=== PATIENT | male | born 1965 ===

== ENCOUNTER 2020-07-09 18:50 | Emergency (ER) | payer MEDICAID, SELFPAY ==
[2020-07-09 19:18] VITALS: RESP 16; BMI 27.1
--- NOTE | 2020-07-09 19:25 | ED.AMS ---
HPI - Altered Mental Status General Chief Complaint: Overdose Stated Complaint: AMS Time Seen by Provider: 07/09/20 19:22 Source: patient and EMS Mode of arrival: EMS Limitations: no limitations History of Present Illness HPI narrative: Patient was found down by bystanders after he snorted 1 bag of heroin which he does not use very often when EMS reached patient had shallow breathing, saturating 88% at room air very difficult to arouse was given 1 mg of IV Narcan patient responded back to normal ambulatory MD complaint: decreased responsiveness Related Data Allergies Allergy/AdvReac Type Severity Reaction Status Date / Time aspirin [ASA] Allergy Unknown ITCHING Unverified 11/01/19 16:38 Review of Systems Review of Systems: Constitutional : No Weight loss, No Fever, No Chills ENT/Mouth : No sore throat, No Rhinorrhea Eyes: No Eye Pain, No Swelling Cardiovascular : No Chest Pain, no palpitations Respiratory : No Cough, No Sputum, no shortness of breath Gastrointestinal : no Nausea, No Vomiting, No Diarrhea, No abdominal Pain, no black stools Genitourinary : No Dysuria, No Urinary Frequency Musculoskeletal : No joint pain, No Myalgias, No Joint Swelling Skin : No Skin Lesions, No rash Neuro : No Weakness, No Numbness, No Dizziness, No Headache Psych : No Anxiety/Panic, No Depression Heme/Lymph: No Bruising, No Lymphadenopathy Endocrine : No Polyuria, No Polydipsia All other systems reviewed and are negative [facility] Social History Social History Advance Directives: No Advance Directives Information Provided: No Physical Exam Vital Signs: Vital Signs: Last Vital Signs Temp 98.4 F 07/09/20 19:46 Pulse 54 07/09/20 20:21 Resp 16 07/09/20 19:46 BP 103/73 07/09/20 20:21 Pulse Ox 94 07/09/20 19:46 Body Mass Index 27.1 Appearance: Alert. Oriented X3. No acute distress. Eyes: PERRLA, No Nystagmus ENT: Pharynx normal. Oral Mucosa moist Neck: Normal inspection. Neck supple. CVS: Normal heart rate and rhythm. Pulses normal. Respiratory: No respiratory distress. Equal air entry bilateral, no wheezing/rales/rhonchi Abdomen: Soft and nontender. Bowel sounds are present, no mass palpable, no CVA tenderness Skin: Skin warm and dry. Normal skin color. Normal skin turgor. Extremities: No lower extremity edema. No calf tenderness Neuro: Oriented X 3. No motor deficit. No sensory deficit.No cerebellar signs , cranial nerves II-XII intact MDM - Altered Mental Status MDM Narrative Medical decision making narrative: Patient feels much better ambulatory saturating 94% on room air had food in the ER will discharge patient home patient blood pressure on arrival was 89/54 improved after oral hydration to 103/73 patient refused any labs workup Discharge Plan Discharge Clinical Impression: Drug overdose Qualifiers: Encounter type: initial encounter Injury intent: accidental or unintentional Qualified Code(s): T50.901A - Poisoning by unspecified drugs, medicaments and biological substances, accidental (unintentional), initial encounter Patient Disposition: Home, Self-Care Instructions: Opioid Use Disorder (ED) Additional Instructions: Do not use drugs follow up with detox Interventions: ED Discharge Assessment Last Done: 07/09/20 20:23 Discharge Date/Time: 07/09/20 20:25
[2020-07-09 19:46] VITALS: BP 89/54; PULSE 66; RESP 16; TEMP 36.9; O2SAT 94
--- NOTE | 2020-07-09 19:58 | MHC.RECOVSUP ---
Met with patient refused any services
[2020-07-09 20:21] VITALS: BP 103/73; PULSE 54
== END 2020-07-09 20:25 | disposition home or self-care (01) ==
PROVIDERS: Emergency Provider Internal Medicine; PCP Internal Medicine
DX: T40.1X1A Poisoning by heroin, accidental (unintentional), initial encounter (principal); F11.19 Opioid abuse with unspecified opioid-induced disorder; Y92.9 Unspecified place or not applicable; Z71.51 Drug abuse counseling and surveillance of drug abuser
CPT/HCPCS: 99284

== ENCOUNTER 2020-07-14 19:50 | Emergency (ER) | payer MEDICAID, SELFPAY ==
[2020-07-14 19:54] VITALS: BP 103/55; PULSE 85; RESP 18; TEMP 37.2; O2SAT 89; BMI 21.7
--- NOTE | 2020-07-14 20:29 | ED.OVERDOSE ---
HPI - Overdose General Chief Complaint: Overdose Stated Complaint: od Time Seen by Provider: 07/14/20 21:59 Source: patient and EMS Mode of arrival: EMS Limitations: no limitations History of Present Illness HPI Narrative: 55-year-old male presents via EMS with overdose. Was found unresponsive, was given some Narcan and then became responsive. complaint: accidental overdose Onset (ago): hour(s) (Within the hour of arrival) Timing confirmed by: other (Bystander) Intent: unwilling to say Context: Accidental Overdose: wanted to get high Treatments Prior to Arrival: narcan Related Data Allergies Allergy/AdvReac Type Severity Reaction Status Date / Time aspirin [ASA] Allergy Unknown ITCHING Unverified 11/01/19 16:38 Review of Systems Review of Systems: Yes Unobtainable due to mental status PMFSH Past Medical History Attestation statement: The following information was validated with the patient. Source: old records reviewed Social History Social History Alcohol intake: current Alcohol intake frequency: 0-2 drinks per day Patient Tobacco Use Status: Current everyday Tobacco user Smoked in Last 30 Days: Yes Use of substances other than those prescribed or required for medical reasons: Yes Substance Use Type: Heroin, IV Drugs and Opiates Substance Use Frequency: Daily Advance Directives: No Advance Directives Information Provided: No Physical Exam Vital Signs: Vital Signs: Last Vital Signs Temp 98.9 F 07/14/20 19:54 Pulse 68 07/14/20 21:56 Resp 18 07/14/20 21:56 BP 105/67 07/14/20 21:56 Pulse Ox 92 07/14/20 21:56 Body Mass Index 21.7 Appearance: Alert. Oriented X3. No acute distress. Eyes: Pupils equal, round and reactive to light. ENT: Pharynx normal. Neck: Normal inspection. Neck supple. CVS: Normal heart rate and rhythm. Pulses normal. Respiratory: No respiratory distress. Breath sounds normal. Abdomen: Soft and nontender. Skin: Skin warm and dry. Normal skin color. Normal skin turgor. Extremities: No lower extremity edema. Neuro: No motor deficit. No sensory deficit. Course Course Course Narrative: 55-year-old male presents via EMS for suspected opioid overdose. Was given Narcan in the field after being found unresponsive. At this time, patient is not interested in answering any questions, states that he does not need to speak to me and does not need to answer any questions that I have. Will monitor O2 sats and heart rate for the next few hours. O2 sats maintained above 90%, patient is a known COPD, patient is not interested in detox at this time. He did except documentation with numbers for detox. MDM - Overdose Differential Diagnosis Differential diagnosis: Likely drug overdose Discharge Plan Discharge Clinical Impression: Drug overdose Qualifiers: Encounter type: initial encounter Injury intent: accidental or unintentional Qualified Code(s): T50.901A - Poisoning by unspecified drugs, medicaments and biological substances, accidental (unintentional), initial encounter Patient Disposition: Home, Self-Care Instructions: Adult Overdose (ED), Narcotic Use Disorder (ED) Additional Instructions: Please consider detox. You were evaluated for drug overdose. Thank you for choosing this emergency department for evaluation. Please follow-up with primary care physician as needed. Return to the emergency department for any new, concerning, or worsening symptoms.
[2020-07-14 21:56] VITALS: BP 105/67; PULSE 68; RESP 18; O2SAT 92
[2020-07-14] MEDS: Naloxone HCl Nasal TAKE HOME 4 MG SPRAY NOSTRILALT (22:03)
== END 2020-07-14 22:14 | disposition home or self-care (01) ==
PROVIDERS: Emergency Provider Emergency Medicine
DX: T40.1X1A Poisoning by heroin, accidental (unintentional), initial encounter (principal); R40.4 Transient alteration of awareness; Y92.410 Unspecified street and highway as the place of occurrence of the external cause; J44.9 Chronic obstructive pulmonary disease, unspecified; F17.210 Nicotine dependence, cigarettes, uncomplicated
CPT/HCPCS: 99284; 99285

== ENCOUNTER 2020-12-21 00:30 | Emergency (ER) | payer MEDICAID, SELFPAY ==
[2020-12-21] VITALS (19 sets, daily range): BP systolic 82–119; BP diastolic 49–91; PULSE 52–96; RESP 16–19; TEMP 32.2–37; O2SAT 2–100; BMI 25.9
--- NOTE | ~2020-12-21 | CT_ITS ---
EXAMINATION: HEAD CT WITHOUT CONTRAST CERVICAL SPINE CT WITHOUT CONTRAST CLINICAL INFORMATION: Found unresponsive, rule out stroke, bleed, fracture COMPARISON: None. TECHNIQUE: Contiguous axial imaging of the head was performed without the administration of IV contrast. Axial multidetector volumetric images were also performed through the cervical spine without intravenous contrast. Multiplanar reconstructed images in coronal and sagittal orientations were submitted. This CT examination was performed using dose optimization techniques as appropriate, variously including the following: *Automated exposure control *Adjustment of mA and/or kV according to patient size (this includes techniques or standardized protocols for targeted exams where dose is matched to indication/reason for exam; i.e. extremities or head) *Use of iterative reconstruction technique DOSE: 1073 mGy-cm FINDINGS: HEAD: There is no evidence of acute intracranial hemorrhage or territorial infarction. No abnormal mass-effect or midline shift. No extra-axial fluid collections. Moran to white matter differentiation is well preserved. The ventricles are normal in size and configuration. Calcific atherosclerosis is present within the cavernous segments of the internal carotid arteries. There is a prominence of the CSF space in the the anterior aspect of the right middle cranial fossa into the anterior aspect of the temporal lobe, most likely corresponding to an arachnoid cyst. No appreciable abnormal parenchymal attenuation. There is rightward deviation of the nasal septum. A 1 cm focus of soft tissue attenuation in the right sphenoid sinus may correspond to a nasal polyp or mucous retention cyst. There is opacification of the right aspect of the nasal cavity. CERVICAL SPINE: Vertebral body heights are normal. No fractures of the vertebral bodies or posterior elements. Vertebral alignment is normal. No subluxation. Degenerative osteophytes and sclerosis are present at the atlantodental articulation, though normal alignment is maintained. Craniocervical junction is normal. Multilevel degenerative disc disease is characterized by loss of vertebral disc height, anterior osteophytes, and uncovertebral osteophytes, most notably from C4-C5 through C6-C7. Facet joints are normal. Posterior disc osteophyte complexes produce central canal narrowing at C5-C6 and C6-C7 most notably. Uncovertebral osteophytes produce multilevel neural foraminal encroachment. No significant paravertebral soft tissue swelling. Cervical soft tissues are unremarkable. Imaged portions of the lung apices are clear. CT/CT cervical spine wo con IMPRESSION: 1. No acute intracranial pathology. 2. No acute fracture or malalignment in the cervical spine. 3. Moderate multilevel degenerative disc disease in the cervical spine.
--- NOTE | ~2020-12-21 | CT_ITS ---
EXAMINATION: CT CHEST WITH CONTRAST CT ABDOMEN AND PELVIS WITH CONTRAST CLINICAL INFORMATION: Found unresponsive, hypotensive hypothermic rule out infection. COMPARISON: 11/23/2018. TECHNIQUE: Multidetector volumetric imaging was performed from the thoracic inlet through the pubic symphysis following administration of intravenous contrast material. A total of 85 mL Omnipaque 350 was administered intravenously. Sagittal and coronal images were reformatted. This CT examination was performed using dose optimization techniques as appropriate, variously including the following: *Automated exposure control *Adjustment of mA and/or kV according to patient size (this includes techniques or standardized protocols for targeted exams where dose is matched to indication/reason for exam; i.e. extremities or head) *Use of iterative reconstruction technique DOSE: 1360 mGy-cm FINDINGS: -CHEST- LUNG: Dependent, subpleural reticular opacities in both the lower and upper lobes most likely correspond to dependent atelectasis. Assessment is slightly limited by respiratory motion. No focal airspace consolidation is identified. Central airways are clear. No appreciable bronchial opacification. No pneumothorax or pleural effusion. MEDIASTINUM: The mediastinum in normal. The central vascular structures are unremarkable. No hilar or mediastinal lymphadenopathy. PERICARDIUM/PLEURA: No significant effusion. No pleural mass or thickening. CHEST WALL/AXILLA: Unremarkable. -ABDOMEN/PELVIS- LIVER, GALLBLADDER, BILIARY TREE: The liver is normal in size, shape, and attenuation. No focal hepatic lesion or biliary ductal dilatation is present. The gallbladder is unremarkable with no evidence of radiopaque gallstones, gallbladder wall thickening, or obvious pericholecystic inflammatory changes. PANCREAS: Normal; no mass or surrounding fluid. SPLEEN: Normal size. No focal lesion. ADRENAL GLANDS: Normal; no mass. KIDNEYS AND URETERS: The kidneys are normal in size, shape, and attenuation. There is a 6 cm metallic fragment within the anterior cortex of the left kidney. There is a 4 mm calculus within the lower pole the left kidney. Attenuation value of the calculus in the lower pole of the left index measures 708 Hounsfield units. There is a 1.4 cm hypoattenuating, fluid density cyst within the lower pole the right kidney. No suspicious renal lesions. No follow-up imaging is recommended. No hydronephrosis or hydroureter. No perinephric stranding. BLADDER: Webb catheter terminates in the bladder. Mild bladder wall thickening. GASTROINTESTINAL TRACT: There is mild colonic diverticulosis. Stomach, small bowel, and colon are normal in caliber. No bowel wall thickening or surrounding fat stranding. No intraperitoneal free fluid or free air. ABDOMINAL WALL: No significant hernia is appreciated. VASCULATURE: Atherosclerotic calcifications are present in the abdominal aorta and iliac arteries. No aneurysmal dilatation. LYMPH NODES: No lymphadenopathy. . PELVIC VISCERA: Prostate gland is enlarged, measuring 5 cm transverse. OSSEUS STRUCTURES: No acute osseous abnormalities. Mild osteoarthritis in the hips. No fracture or malalignment. CT/CT abdomen pelvis w con IMPRESSION: 1. No acute abnormalities identified in the chest, abdomen, and pelvis. No acute fractures. 2. Dependent atelectasis in both lungs. 3. A 4 mm nonobstructing calculus in the left kidney. 4. Mild colonic diverticulosis. No evidence of acute diverticulitis. 5. Prostatomegaly.
--- NOTE | ~2020-12-21 | XR_ITS ---
EXAMINATION: XR CHEST CLINICAL INFORMATION: Cough COMPARISON: 04/06/2015 and 11/23/2018 (CT). TECHNIQUE: Frontal view of the chest was obtained. FINDINGS: Perihilar bronchial wall thickening is evident bilaterally. No focal consolidation. No pneumothorax or pleural effusion. Cardiac and mediastinal contours are normal. Normal pulmonary vasculature. Trachea is midline. No acute osseous findings. XR/XR chest 1V IMPRESSION: Bronchial wall thickening can be seen with a small airways process such as asthma or atypical/viral infection.
[2020-12-21 01:03] LABS: Troponin-I High Sensitivity < 3.5 ng/L (<3.5-35.0)
--- NOTE | 2020-12-21 01:09 | ED_ITS ---
HPI - Altered Mental Status General Chief Complaint: ETOH/Substance Use Stated Complaint: OD Time Seen by Provider: 12/21/20 00:57 Source: EMS Mode of arrival: EMS Limitations: altered mental status History of Present Illness HPI narrative: Patient with history of heroin abuse was [place] in the alley unresponsive not breathing had feeble pulse received 4 mg of Narcan patient awake now but is still not communicating noticed to have 90 degrees rectal temperature Related Data Allergies Allergy/AdvReac Type Severity Reaction Status Date / Time aspirin [ASA] Allergy Unknown ITCHING Verified 12/21/20 01:29 EDT Review of Systems Review of Systems: Yes Unobtainable due to mental status PMFSH Past Medical History Medical History (Updated 12/21/20 @ 01:56 EDT by Gerson Tolentino MD) Heroin abuse Social History Social History (Reviewed 12/21/20 @ 01:22 EDT by Gerson Tolentino MD) Alcohol intake: current Alcohol intake frequency: 0-2 drinks per day Patient Tobacco Use Status: Current everyday Tobacco user Substance Use Type: Heroin, IV Drugs and Opiates Advance Directives: No Advance Directives Information Provided: No Physical Exam Vital Signs: Vital Signs: Last Vital Signs Temp 90 F L 12/21/20 00:54 Pulse 90 12/21/20 00:54 Resp 18 12/21/20 00:54 BP 119/91 H 12/21/20 00:54 Pulse Ox 97 12/21/20 00:54 Body Mass Index 25.9 Const: General: alert, ill appearing and poor hygiene Nutritional Appearance: cachectic and thin Orientation/consciousness: oriented to person Limitations: altered mental status HENMT: Head: Yes normocephalic and Yes atraumatic Ears: hearing grossly normal bilaterally Mouth: Normal oral and palatal mucosa present Eyes: General: appearance normal, both eyes and all related structures Neck: Neck: Yes full ROM and Yes trachea midline Resp: Effort & Inspection: normal respiratory effort Auscultation: clear to auscultation bilaterally, no crackles and no rales Cardio: Jugular venous distension: no JVD Palpation: normal PMI Rate: regular rate Rhythm: regular rhythm Heart sounds: S1 normal heart sound present and S2 normal heart sound present Peripheral pulses: Peripheral pulses 2+ throughout GI: Inspection: Yes normal to inspection Palpation (GI): Soft to palpation and nontender Auscultation: normal bowel sounds : General: Yes no CVA tenderness Back/Spine/Pelvis: Back: no CVA tenderness Thoracic/Lumbar Spine: No thoracic spinal tenderness and No lumbar spinal tenderness Skin: General skin exam: dry skin Neuro: General: oriented to person and no focal motor deficits Course Reevaluation(s) Reevaluation #1: Patient back to the baseline says he snorted only 1 bag of her oin rectal temperature 98.2 does not want go to detox taking p.o. fluids and had sandwich Time: 01:56 MDM - Altered Mental Status MDM Narrative Medical decision making narrative: Patient history of substance abuse found unresponsive in the cold with rectal total core temperature of 90 degrees tonight improved after Raiza Hugger and warm saline to 94 .patient is more alert now withdraw the basic labs check CPK for rhabdomyolysis warm saline were also given no signs of injury further workup is pending. Dr. Lozoya will follow the labs and disposition Lab Data Result diagrams: 12/21/20 01:05 EST 12/21/20 01:05 EST Labs: Lab Results 12/21/20 12/21/20 12/21/20 Range/Units 01:03 EST 01:23 EST 01:23 EST POC Glucose 168 H (60-115) mg/dL Urine Color STRAW Urine Appearance CLEAR Urine pH 7.0 (5.0-8.0) Ur Specific [place] <= 1.005 (1.005-1.025) Urine Protein NEG (NEG-TRACE) MG/DL Urine Glucose (UA) NEG (NEG) MG/DL Urine Ketones NEG (NEG) MG/DL Urine Blood 2+ H (NEG) Urine Nitrite NEG (NEG) Ur Leukocyte Esterase NEG (NEG) COVID-19 (ZIYAD) Negative (Negative) COVID-19 Clin Com See Note ECG Data ECG #1: Attestation: I personally reviewed and interpreted this ECG as follows: Interpretation: Normal sinus rhythm heart rate 72 beats per minute normal intervals normal axis no acute ST changes no acute ischemi Discharge Plan Discharge Clinical Impression: Hypothermia associated with environmental change Accidental heroin overdose Qualifiers: Encounter type: initial encounter Qualified Code(s): T40.1X1A - Poisoning by heroin, accidental (unintentional), initial encounter
--- NOTE | 2020-12-21 01:10 | ECG_ITS ---
Test Reason : OD Blood Pressure : / mmHG Vent. Rate : 072 BPM Atrial Rate : 072 BPM P-R Int : 142 ms QRS Dur : 088 ms QT Int : 392 ms P-R-T Axes : 054 078 057 degrees QTc Int : 429 ms Poor data quality Normal sinus rhythm Intra-ventricular conduction delay Otherwise normal ECG When compared with ECG of 06-APR-2015 07:13, No significant change was found Heart rate has increased Referred By: Gerson Tolentino Electronically Signed By:HERIBERTO STEWART MD
[2020-12-21 01:25] LABS: Mucus Urine TRACE /LPF; Renal Epithelial Cells Urine 1+ /LPF; Squamous Epithelial Cell Urine TRACE /LPF; WBC Urine 0-2 /HPF (0-4)
[2020-12-21 01:26] LABS: Sperm Urine NOTED
[2020-12-21 01:26] LABS: Glucose, Whole Blood 168 mg/dL (60-115)
[2020-12-21] MEDS: 0.9 % Sodium Chloride 1,000 ML 999 ML IVCONT ×2 (01:28→01:31)
[2020-12-21 01:29] LABS: White Blood Count 18.8 X10*3/uL (4.8-10.8)
[2020-12-21 01:31] LABS: SLIDE REVIEW VERIFIED
[2020-12-21 01:40] LABS: Appearance Urine CLEAR; Color Urine STRAW; Glucose Urine UA NEG (NEG); Leukocyte Esterase Urine NEG (NEG); Nitrite Urine NEG (NEG); Specific Gravity - Urine <= 1.005 (1.005-1.025); UACC Culture Trigger NO; Urine Blood 2+ (NEG); Urine Ketones NEG (NEG); Urine Protein NEG (NEG-TRACE)
[2020-12-21 01:44] LABS: Basophils Absolute Auto 0.1 X10*3/uL (0.0-0.2); Basophils Percent Auto 0.3 % (0-2); MANUAL DIFF FLAG SCAN; Mean Corpuscular Volume 102.8 fL (80.0-98.0); Red Cell Distribution Width 13.1 % (11.0-16.0); SCAN SMEAR FLAG 1
[2020-12-21 01:46] LABS: Eosinophils Percent Auto 0.1 % (0-4); Hematocrit 47.3 % (42.0-52.0); Hemoglobin 15.3 g/dl (14.0-18.0); Imm Gran Abs Auto 0.11 X10*3/uL (0.00-0.03); Imm Gran Pct Auto 0.6 % (0.0-0.4); Lymphocytes Absolute Auto 2.3 X10*3/uL (1.2-4.9); Lymphocytes Percent Auto 12.4 % (20-40); Mean Corpuscular HGB Conc 32.3 g/dl (31.0-36.0); Mean Corpuscular Hemoglobin 33.3 pg (27.0-33.0); Monocytes Absolute Auto 1.2 X10*3/uL (0.1-1.2); Monocytes Percent Auto 6.5 % (2-11); Neutrophils Absolute Auto 15.1 x10*3/uL (2.0-8.3); Neutrophils Percent Auto 80.1 % (45-73); PLT CLUMP 1
--- NOTE | 2020-12-21 01:49 | HO.SUDE ---
Pt not appropriate for assessment at this time. CARE/recovery team will follow up in the morning.
[2020-12-21 01:53] LABS: COVID-19 Test Negative (Negative)
[2020-12-21 01:59] LABS: Amphetamine Screen Urine Not Detected (Not Detect); Barbiturates, Urine Not Detected (Not Detect); Benzodiazepines Screen Urine Not Detected (Not Detect); Cannabinoid Screen Urine POSITIVE (Not Detect); Cocaine Screen Urine POSITIVE (Not Detect); Fentanyl, urine POSITIVE (Not Detect); Opiate Screen Urine POSITIVE (Not Detect); PLT ABN DIST 1; Phencyclidine Screen Urine Not Detected (Not Detect)
[2020-12-21 02:31] LABS: INTERNATIONAL NORM RATIO 1.3 (0.9-1.1); Prothrombin Time 14.9 SEC (9.9-13.0)
[2020-12-21] MEDS: Hydrocortisone Sod Succ/PF 100 MG VIAL IVPUSH (02:32)
[2020-12-21 02:35] LABS: Lactic Acid 1.6 mmol/L (0.5-2.0)
[2020-12-21 02:39] LABS: Ethanol < 10 mg/dL
[2020-12-21 02:42] LABS: Alanine Aminotransferase 14 U/L (0-40); Albumin Level 3.3 g/dL (3.5-5.0); Alkaline Phosphatase 57 U/L (39-117); Anion Gap 11 (12-20); Aspartate Amino Transferase 18 U/L (5-37); Bilirubin Total 0.4 mg/dL (0.0-1.0); Blood Urea Nitrogen 17 mg/dL (9-16); Calcium 7.8 mg/dL (8.4-10.2); Carbon Dioxide 25 mmol/L (22-29); Chloride 109 mmol/L (96-108); Creatinine Clr Calc Pharmacy 96.3; Estimated Glomerular Filt Rate > 60; Glucose Random 74 mg/dL (60-115); Lipase 94 U/L (8-78); Magnesium 1.8 mg/dL (1.6-2.6); Potassium 3.7 mmol/L (3.3-5.1); Sodium 141 mmol/L (135-145); Total Protein 5.1 g/dL (6.5-8.0)
[2020-12-21] MEDS: Piperacillin Sodium/Tazobactam 4.5 GM in 0.9 % Sodium Chloride 100 ML IV (02:49)
[2020-12-21] MEDS: 0.9 % Sodium Chloride 1,000 ML 999 ML IV (02:49)
[2020-12-21] MEDS: Naloxone HCl 2 MG/2 ML SYRINGE IVPUSH (02:53)
[2020-12-21] MEDS: ondansetron HCL 4 MG/2 ML VIAL IVPUSH (02:59)
[2020-12-21 03:02] LABS: TSH reflex Free T4 1.08 uIU/mL (0.32-4.0)
[2020-12-21] MEDS: iohexoL 350 MG/ML 100 ML INFUS..BTL 85 ML IV (03:40)
[2020-12-21] MEDS: Naloxone HCl Nasal TAKE HOME 4 MG SPRAY NOSTRILALT (09:26)
--- NOTE | 2020-12-21 09:40 | PC.NURSE ---
pt medically cleared for discharge. discharge summary given and explained, snack given. pt given narcan to take with him, instructed how to use narcan. pt requested bus pass. currently inquiring about getting one for him
--- NOTE | 2020-12-21 10:04 | PC.NURSE ---
pt given bus pass, orange juice given to take with him. pt alert and oriented, vss. steady gait on discharge.
== END 2020-12-21 10:06 | disposition home or self-care (01) ==
PROVIDERS: Internal Medicine; Emergency Provider Emergency Medicine Emergency Medical Services
DX: T40.1X1A Poisoning by heroin, accidental (unintentional), initial encounter (principal); R40.4 Transient alteration of awareness; Y92.488 Other paved roadways as the place of occurrence of the external cause; F11.10 Opioid abuse, uncomplicated; T68.XXXA Hypothermia, initial encounter; X31.XXXA Exposure to excessive natural cold, initial encounter; F17.200 Nicotine dependence, unspecified, uncomplicated; Z20.822 Contact with and (suspected) exposure to COVID-19
CPT/HCPCS: 36415; 70450; 71045; 71260; 72125; 74177; 80053; 80307; 81001; 82077; 82550; 82947; 83605; 83690; 83735; 84443; 84484; 85025; 85610; 87040; 87635; 93005; 96361; 96365; 96375; 99285; 99291; J2405; J2543; Q9967

== ENCOUNTER 2020-12-30 13:09 | Emergency (ER) | payer MEDICAID, SELFPAY ==
[2020-12-30 13:21] VITALS: BP 136/80; PULSE 99; RESP 18; TEMP 36.7; O2SAT 99; BMI 35.2
--- NOTE | 2020-12-30 13:44 | ED_ITS ---
HPI - Overdose General Chief Complaint: Overdose Stated Complaint: overdose Time Seen by Provider: 12/30/20 13:37 Source: patient and old records reviewed History of Present Illness HPI Narrative: Patient brought in by ambulance after a presumed opioid overdose. Patient states he was given a bag of heroin by a friend. He was later found unresponsive. Given 8 mg of Narcan intranasally prior to EMS arrival. He arrives without complaint. He states he does not use heroin daily. Only when he is given it by friends. This is his 4th overdose this year. His last 1 was December 25. During that visit he was hypothermic and hypotensive. He improved in the [facility] department and was discharged home. Today he denies complaints. No recent illnesses. He also smokes crack daily. He does not believe he needs detox. Related Data Previous Rx's Medication Instructions Recorded naloxone 8 mg/actuation nasal spray 8 mg (0.1 mL) INTRANASAL Q2M PRN 12/30/20 #1 ea Allergies Allergy/AdvReac Type Severity Reaction Status Date / Time aspirin [ASA] Allergy Unknown ITCHING Verified 12/21/20 01:29 EDT Review of Systems Constitutional: Constitutional: Denies fever(s) Cardiovascular: Comments: No chest pain Respiratory: Comments: No dyspnea or cough Gastrointestinal: Comments: No nausea vomiting or diarrhea Musculoskeletal: Comments: No injury Integumentary/Breasts: Comments: Anderson to fingers of both hands, thumbs index finger and middle finger, patient attributes to smoking crack Neurologic: Comments: No weakness numbness or paresthesias PMFSH Past Medical History Medical History (Updated 12/30/20 @ 13:49 by Kyler Callahan MD) Heroin abuse Social History Social History (Reviewed 12/21/20 @ 01:22 EDT by Gerson Tolentino MD) Alcohol intake: never Patient Tobacco Use Status: Current everyday Tobacco user Substance Use Type: Heroin Advance Directives: No Advance Directives Information Provided: No Physical Exam Vital Signs: Vital Signs: Last Vital Signs Temp 98.0 F 12/30/20 13:21 Pulse 99 12/30/20 13:21 Resp 18 12/30/20 13:21 BP 136/80 12/30/20 13:21 Pulse Ox 99 12/30/20 13:21 Body Mass Index 35.2 Const: Other: Awake and alert no acute distress. Sitting in a chair. Cooperative HENMT: Other: Pupils equal round reactive to light. Normocephalic atraumatic Neck: Other: Full range of motion Resp: Other: Clear and equal bilaterally Cardio: Other: Regular rate and rhythm without murmurs rubs or gallops GI: Other: Soft nontender nondistended Skin: Other: Blistering and calluses to bilateral thumbs index fingers and 3rd fingers as mentioned and review of systems. No erythema or evidence of infection. 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 Patient does not want outpatient services at this time but may accept information for later time. 2:14 p.m. Patient remained stable in the emergency department Stable for discharge home Discharge Plan Discharge Clinical Impression: Opioid use disorder, Cocaine use disorder Drug overdose Qualifiers: Encounter type: initial encounter Injury intent: accidental or unintentional Qualified Code(s): T50.901A - Poisoning by unspecified drugs, medicaments and biological substances, accidental (unintentional), initial encounter Patient Disposition: Home, Self-Care Instructions: Cocaine Abuse (ED), Adult Overdose (ED), Opioid Use Disorder (ED) Additional Instructions: I recommend follow-up counseling in outpatient services for substance use disorder treatment Prescriptions: New naloxone 8 mg/actuation spray,non-aerosol 8 mg intranasal Q2M PRN (Reason: opioid overdose) Qty: 1 RF: 0
--- NOTE | 2020-12-30 13:53 | MHC.RECOVSUP ---
? Reason for consult:Recovery Support o Current location: ED04 o Identified substance use concern: Heroine - Overdose l - Support ? Intervention: o MAT started or to be started o Community resources provided o Harm reduction discussion ? Plan: o Referral to [facility] o Patient awaiting crisis evaluation o Patient to follow up with [facility] after discharge ? Additional information: Patient refuses to go to detox, spoke to person re: MAT, CCC, and HF. Gave patient community resources and had discussion on Harm Reduction.
== END 2020-12-30 14:28 | disposition home or self-care (01) ==
PROVIDERS: Emergency Provider Emergency Medicine
DX: T40.1X1A Poisoning by heroin, accidental (unintentional), initial encounter (principal); T40.5X1A Poisoning by cocaine, accidental (unintentional), initial encounter; Y92.9 Unspecified place or not applicable; F17.200 Nicotine dependence, unspecified, uncomplicated; Z71.6 Tobacco abuse counseling; Z79.899 Other long term (current) drug therapy
CPT/HCPCS: 99282

== ENCOUNTER 2021-06-30 22:52 | Emergency (ER) | payer MEDICAID, SELFPAY ==
[2021-06-30 23:09] VITALS: BP 118/76; BP 134/87; PULSE 69; PULSE 81; RESP 16; TEMP 36.7; O2SAT 94; O2SAT 95; BMI 23.0
[2021-07-01] VITALS: BP 82/49; PULSE 58; RESP 16; TEMP 36.7; O2SAT 98
--- NOTE | 2021-07-01 01:14 | ED_ITS ---
HPI - Overdose General Chief Complaint: Overdose Stated Complaint: OVERDOSE Time Seen by Provider: 07/01/21 01:14 Source: patient and EMS Mode of arrival: EMS History of Present Illness HPI Narrative: 56-year-old male with known heroin use is brought in by EMS after he used 1 bag of heroin and patient denies that he was trying to kill himself and at this time is declining any detox. Patient required 10 mg of Narcan from EMS. Related Data Previous Rx's Medication Instructions Recorded naloxone 8 mg/actuation nasal spray 8 mg (0.1 mL) INTRANASAL Q2M PRN 12/30/20 #1 ea Allergies Allergy/AdvReac Type Severity Reaction Status Date / Time aspirin [ASA] Allergy Unknown ITCHING Verified 12/21/20 01:29 EDT Review of Systems Review of Systems: Pertinent positives and negatives as stated in HPI 10 point review of systems is otherwise negative. PMFSH Past Medical History Source: nursing notes reviewed Medical History Heroin abuse Social History Social History Alcohol intake: never Patient Tobacco Use Status: Current everyday Tobacco user Substance Use Type: Heroin Advance Directives: No Physical Exam Vital Signs: Vital Signs: Last Vital Signs Temp 98.0 F 07/01/21 05:47 Pulse 49 L 07/01/21 05:47 Resp 12 07/01/21 05:47 BP 99/59 L 07/01/21 05:47 Pulse Ox 95 07/01/21 05:47 BMI result Body Mass Index 23.0 VITAL SIGNS: Reviewed. GENERAL: Well developed, well nourished, in no acute distress. HEAD: Normocephalic/atraumatic EYES: PERRLA, EOMI EARS: Ext canals without abnormality OROPHARYNX: no oral lesions noted, posterior pharynx clear LUNGS: Normal breath sounds. No adventitious sounds or accessory muscle use. SpO2<93> CARDIOVASCULAR: Regular rate and rhythm without noted murmurs ABDOMEN: Soft, non-tender, non-distended with bowel sounds. SKIN: Inspection of the skin reveals no rashes NEUROLOGIC: Drowsy but arousable and oriented x 3. Strength and sensation to l ight touch were grossly intact x 4. Course Course Course Narrative: 56-year-old male with history and clinical presentation consistent with accidental overdose and declining any detox at this time. He is still significantly drowsy is otherwise hemodynamically stable on will be monitored until he is more awake. On review of all investigations patient has a noted anemia, however there is no evidence acute bleeding. Patient received IV fluids as well as a dose of Narcan here in the emergency room and is now eating and drinking without difficulty and hemodynamically stable for discharge to. He will be discharged with home Narcan, he is declining any detox at this time. MDM - Overdose Lab Data Result diagrams: 07/01/21 02:14 07/01/21 02:13 Labs: Lab Results 07/01/21 07/01/21 07/01/21 Range/Units 02:01 02:02 02:13 WBC (4.8-10.8) X10*3/uL RBC (4.60-5.80) X10*6/uL Hgb (14.0-18.0) g/dl Hct (42.0-52.0) % MCV (80.0-98.0) fL MCH (27.0-33.0) pg MCHC (31.0-36.0) g/dl RDW (11.0-16.0) % Plt Count MPV Immature Gran % (Auto) (0.0-0.4) % Neut % (Auto) (45-73) % Lymph % (Auto) (20-40) % [place] % (Auto) (2-11) % Eos % (Auto) (0-4) % Baso % (Auto) (0-2) % Lymph # (Auto) (1.2-4.9) X10*3/uL [place] # (Auto) (0.1-1.2) X10*3/uL Eos # (Auto) (0.0-0.4) X10*3/uL Baso # (Auto) (0.0-0.2) X10*3/uL Abs Immat Gran (auto) (0.00-0.03) X10*3/uL Absolute Neuts (auto) (2.0-8.3) x10*3/uL Absolute Nucleated RBC (0.0-0.012) X10*3/uL Nucleated RBC % (auto) (0.0-0.2) /100WBC Smear Tech's Comments Sodium 140 (135-145) mmol/L Potassium 3.9 (3.3-5.1) mmol/L Chloride 104 (96-108) mmol/L Carbon Dioxide 29 (22-29) mmol/L Anion Gap 11 L (12-20) BUN 16 (9-16) mg/dL Creatinine 0.87 (0.5-1.4) mg/dL Estim Creat Clear Calc 103.3 Estimated GFR > 60 Random Glucose 127 H D (60-115) mg/dL Calcium 9.0 D (8.4-10.2) mg/dL Total Bilirubin 0.2 (0.0-1.0) mg/dL AST 18 (5-37) U/L ALT 17 (0-40) U/L Alkaline Phosphatase 61 (39-117) U/L Total Protein 6.0 L (6.5-8.0) g/dL Albumin 3.6 (3.5-5.0) g/dL Ethyl Alcohol mg/dL COVID-19 ([facility]) Negative (Negative) COVID-19 Clin Com See Note Influenza Type A ([facility]) Negative (Negative) Influenza Type B ([facility]) Negative (Negative) Influenza A & B Note See Note 07/01/21 07/01/21 Range/Units 02:13 02:14 WBC 9.3 (4.8-10.8) X10*3/uL RBC 3.85 L (4.60-5.80) X10*6/uL Hgb 12.4 L (14.0-18.0) g/dl Hct 37.4 L D (42.0-52.0) % MCV 97.1 (80.0-98.0) fL MCH 32.2 (27.0-33.0) pg MCHC 33.2 (31.0-36.0) g/dl RDW 13.5 (11.0-16.0) % Plt Count Not Reportable MPV Not Reportable Immature Gran % (Auto) 0.3 (0.0-0.4) % Neut % (Auto) 70.6 (45-73) % Lymph % (Auto) 21.1 (20-40) % [place] % (Auto) 7.0 (2-11) % Eos % (Auto) 0.6 (0-4) % Baso % (Auto) 0.4 (0-2) % Lymph # (Auto) 2.0 (1.2-4.9) X10*3/uL [place] # (Auto) 0.7 (0.1-1.2) X10*3/uL Eos # (Auto) 0.1 (0.0-0.4) X10*3/uL Baso # (Auto) 0.0 (0.0-0.2) X10*3/uL Abs Immat Gran (auto) 0.03 (0.00-0.03) X10*3/uL Absolute Neuts (auto) 6.6 (2.0-8.3) x10*3/uL Absolute Nucleated RBC 0.000 (0.0-0.012) X10*3/uL Nucleated RBC % (auto) 0.0 (0.0-0.2) /100WBC Smear Tech's Comments VERIFIED Sodium (135-145) mmol/L Potassium (3.3-5.1) mmol/L Chloride (96-108) mmol/L Carbon Dioxide (22-29) mmol/L Anion Gap (12-20) BUN (9-16) mg/dL Creatinine (0.5-1.4) mg/dL Estim Creat Clear Calc Estimated GFR Random Glucose (60-115) mg/dL Calcium (8.4-10.2) mg/dL Total Bilirubin (0.0-1.0) mg/dL AST (5-37) U/L ALT (0-40) U/L Alkaline Phosphatase (39-117) U/L Total Protein (6.5-8.0) g/dL Albumin (3.5-5.0) g/dL Ethyl Alcohol < 10 mg/dL COVID-19 ([facility]) (Negative) COVID-19 Clin Com Influenza Type A ([facility]) (Negative) Influenza Type B ([facility]) (Negative) Influenza A & B Note Discharge Plan Discharge Clinical Impression: Drug overdose Patient Disposition: Home, Self-Care Instructions: Adult Overdose (ED) Additional Instructions: Follow-up with your primary care provider in the next 2-3 days for re- evaluation. Return to the ER for worsening symptoms. Prescriptions: No Action naloxone 8 mg/actuation spray,non-aerosol 8 mg intranasal Q2M PRN (Reason: opioid overdose) Qty: 1 0RF Rx Instructions: spray 1 dose into ONE nostril; alternate nostrils w each dose until help arrives
[2021-07-01 02:17] VITALS: BP 101/60; PULSE 55; RESP 14; O2SAT 93
[2021-07-01 02:25] LABS: Basophils Percent Auto 0.4 % (0-2); Eosinophils Absolute Auto 0.1 X10*3/uL (0.0-0.4); Eosinophils Percent Auto 0.6 % (0-4); Mean Corpuscular HGB Conc 33.2 g/dl (31.0-36.0); PLT CLUMP 1; SCAN SMEAR FLAG 1
[2021-07-01 02:27] LABS: Hematocrit 37.4 % (42.0-52.0); Hemoglobin 12.4 g/dl (14.0-18.0); Imm Gran Abs Auto 0.03 X10*3/uL (0.00-0.03); Imm Gran Pct Auto 0.3 % (0.0-0.4); Lymphocytes Percent Auto 21.1 % (20-40); MANUAL DIFF FLAG SCAN; Mean Corpuscular Hemoglobin 32.2 pg (27.0-33.0); Mean Corpuscular Volume 97.1 fL (80.0-98.0); Monocytes Absolute Auto 0.7 X10*3/uL (0.1-1.2); Neutrophils Absolute Auto 6.6 x10*3/uL (2.0-8.3); Neutrophils Percent Auto 70.6 % (45-73); Red Blood Count 3.85 X10*6/uL (4.60-5.80); Red Cell Distribution Width 13.5 % (11.0-16.0)
[2021-07-01 02:34] LABS: White Blood Count 9.3 X10*3/uL (4.8-10.8)
[2021-07-01 02:42] LABS: Influenza A Negative (Negative); Influenza B2 Negative (Negative)
[2021-07-01 02:42] LABS: COVID-19 Test Negative (Negative); IDNOW Serial# 08D9AD1C
[2021-07-01 02:43] LABS: Ethanol < 10 mg/dL
[2021-07-01 02:49] LABS: Alanine Aminotransferase 17 U/L (0-40); Albumin Level 3.6 g/dL (3.5-5.0); Alkaline Phosphatase 61 U/L (39-117); Anion Gap 11 (12-20); Aspartate Amino Transferase 18 U/L (5-37); Bilirubin Total 0.2 mg/dL (0.0-1.0); Blood Urea Nitrogen 16 mg/dL (9-16); Carbon Dioxide 29 mmol/L (22-29); Chloride 104 mmol/L (96-108); Creatinine Clr Calc Pharmacy 103.3; Estimated Glomerular Filt Rate > 60; Glucose Random 127 mg/dL (60-115); Potassium 3.9 mmol/L (3.3-5.1); Sodium 140 mmol/L (135-145)
[2021-07-01 02:50] LABS: SLIDE REVIEW VERIFIED
[2021-07-01 04:00] VITALS: BP 99/62; BP 99/69; PULSE 50; PULSE 79; RESP 14; RESP 16; TEMP 36.6; TEMP 36.7; O2SAT 93; O2SAT 95
[2021-07-01 05:47] VITALS: BP 99/59; PULSE 49; RESP 12; TEMP 36.7; O2SAT 95
[2021-07-01] MEDS: 0.9 % Sodium Chloride 1,000 ML 999 ML IV (06:02)
[2021-07-01] MEDS: Naloxone HCl Nasal 4 MG SPRAY NOSTRILALT (06:02)
--- NOTE | 2021-07-01 06:02 | PC.NURSE ---
Pt had initially refused an IV and fluids earlier in the evening and requested to be left alone and sleep. Pt now agreed to have IV inserted and receive fluids and narcan to improve his condition. Pt is still very lethargic at this time.
== END 2021-07-01 07:38 | disposition home or self-care (01) ==
PROVIDERS: Emergency Provider Student in an Organized Health Care Education/Training Program
DX: T40.1X1A Poisoning by heroin, accidental (unintentional), initial encounter (principal); F11.10 Opioid abuse, uncomplicated; Y92.9 Unspecified place or not applicable; Z20.822 Contact with and (suspected) exposure to COVID-19
CPT/HCPCS: 80053; 82077; 85025; 87502; 87635; 96360; 99284

== ENCOUNTER 2021-09-12 20:25 | Observation (INO) | payer MEDICAID, SELFPAY ==
--- NOTE | ~2021-09-12 | XR_ITS ---
EXAMINATION: XR CHEST CLINICAL INFORMATION: Hypoxic COMPARISON: None TECHNIQUE: Frontal view of the chest was obtained. FINDINGS: Lungs are slightly hypoinflated. Ill-defined/patchy opacity at the left lung base, likely atelectasis. No other focal airspace opacity. No pleural effusion or pneumothorax. Normal cardiomediastinal silhouette. No evidence of pulmonary edema. No acute osseous injury. XR/XR chest 1V IMPRESSION: 1. Hypoinflated lungs with probable mild left basilar atelectasis. Small volume aspiration or early pneumonia could give a similar appearance.
--- NOTE | ~2021-09-12 | CT_ITS ---
EXAMINATION: NONCONTRAST HEAD CT NONCONTRAST CERVICAL SPINE CT INDICATION INFORMATION: Unresponsive COMPARISON: None TECHNIQUE: Separate noncontrast CT examinations of the head and cervical spine were performed. Coronal and sagittal images were created for each examination at the technologist workstation. This CT examination was performed using dose optimization techniques as appropriate, variously including the following: *Automated exposure control *Adjustment of mA and/or kV according to patient size (this includes techniques or standardized protocols for targeted exams where dose is matched to indication/reason for exam; i.e. extremities or head) *Use of iterative reconstruction technique DLP: 1030 mGy-cm FINDINGS: HEAD: Small low-density extra-axial mass in the anterior aspect of the right middle cranial fossa abutting the anterior tip of the temporal lobe compatible with an arachnoid cyst measuring 2.2 x 1.6 cm in size. No other intracranial mass. No intra or extra-axial hemorrhage. No midline shift or herniation. Basal cisterns are patent. No ventriculomegaly. No territorial encephalomalacia. The irene-white matter differentiation is maintained. No significant volume loss. Patchy periventricular and deep white matter hypoattenuation is consistent with mild small vessel ischemic changes. No calvarial fracture or soft tissue abnormality. The mastoid air cells and visualized portions of the paranasal sinuses are well aerated. CERVICAL SPINE: Alignment: Mild reversal of the normal cervical lordosis. Minimal retrolisthesis at C5-C6 and C6-C7. No additional subluxation. Vertebra: No acute fracture. No prevertebral soft tissue swelling. Degenerative disc disease: Moderate cervical spondylosis with disc height loss, endplate sclerosis and proliferative change at C3-C4 through C6-C7. Facet arthrosis greatest on the right at C4-C5. Multilevel bilateral uncovertebral spurring. Other findings: No cervical lymphadenopathy or mass. Visualized major salivary glands and thyroid gland are unremarkable. Mild paraseptal emphysema at the lung apices. Small 4 mm metallic foreign body in the superficial subcutaneous fat overlying the right neck and sternocleidomastoid muscle noted. CT/CT cervical spine wo IV con IMPRESSION: 1. No acute intracranial abnormality. 2. No traumatic subluxation or acute cervical spine fracture.
[2021-09-12] MEDS: Naloxone HCl Nasal 4 MG SPRAY 8 MG NOSTRILALT (20:30)
[2021-09-12 20:36] VITALS: BP 120/80; PULSE 90; RESP 14; TEMP 36.7; O2SAT 100; BMI 24.4
--- NOTE | 2021-09-12 20:43 | ECG_ITS ---
Test Reason : AMS Blood Pressure : / mmHG Vent. Rate : 077 BPM Atrial Rate : 077 BPM P-R Int : 140 ms QRS Dur : 100 ms QT Int : 422 ms P-R-T Axes : 009 076 055 degrees QTc Int : 477 ms Normal sinus rhythm Normal ECG No previous ECGs available Referred By: Babita Ellis Electronically Signed By:JOHN SUÁREZ
--- NOTE | 2021-09-12 20:45 | ED.GENADULT ---
HPI - General Adult General Chief complaint: Seizure Stated complaint: Seziure Time Seen by Provider: 09/12/21 20:42 Source: EMS Mode of arrival: EMS Limitations: altered mental status History of Present Illness HPI narrative: Patient comes to the emergency room via EMS. Seems that a bystander saw the patient seizing in the street, EMS was called. The patient does not have any identification on him. EMS report that when they got to the scene, patient was having a tonic-clonic seizure. Patient was given 4 mg of IV Versed. On arrival to the emergency room, patient had pinpoint pupils, agonal breathing, respiration rate approximately 3 per minute with unobtainable O2 read. Two intranasal Narcan were given, started on a non-rebreather at 15 L, respiratory rate increased, oxygen saturation improved to 100%. Related Data Previous Rx's Medication Instructions Recorded levetiracetam 500 mg tablet 500 mg PO BID #60 tabs 09/13/21 (Keppra) Allergies Allergy/AdvReac Type Severity Reaction Status Date / Time Unable to Assess Allergy Unverified 09/12/21 20:42 Review of Systems Review of Systems: Yes Unobtainable due to mental condition [facility] Past Medical History Source: unable to obtain Social History Social History Advance Directives: No Advance Directives Information Provided: No Physical Exam ED Vital Signs: Vital Signs - 24 hr 09/12/21 20:36 09/12/21 21:07 09/12/21 22:39 Temperature 98.1 F Pulse Rate 90 64 49 L Respiratory Rate 14 16 12 Blood Pressure 120/80 111/72 87/51 L Pulse Oximetry 100 98 96 Oxygen Delivery Method Non-Rebreather Mask Oxymask Oxymask Oxygen Flow Rate 3 3 09/12/21 23:56 09/13/21 00:29 09/13/21 01:37 Temperature Pulse Rate 64 49 L 47 L Respiratory Rate 16 14 Blood Pressure 95/58 L 89/57 L 98/64 Pulse Oximetry 94 Oxygen Delivery Method Oxymask Oxygen Flow Rate 3 BMI result Body Mass Index 24.4 Const Other: Appearance: Unresponsive Eyes: Pinpoint pupils bilaterally, responsive to light ENT: Pharynx normal. Neck: Normal inspection. Neck supple. No lymph nodes noted. No crepitus, no palpable step-offs CVS: Normal heart rate and rhythm. Pulses normal. Normal S1 and S2 Respiratory: Initially apneic, after Narcan respiratory rate increased, on 15 L Abdomen: Soft and nontender. No rigidity. No distention. Skin: Skin warm , diaphoretic, normal skin color Extremities: No lower extremity edema. No Lacerations. No Rash Neuro: Unresponsive Psych: Unresponsive Course Course Course Narrative: Patient is still unresponsive, snoring, patient's respiratory rate and oxygen saturation improved with [address] doses. Head CT and neck CT did not show any abnormalities. Chest x-ray shows possible atelectasis versus early pneumonia. Patient's white blood cell count within normal limits, no fever, patient has no respiratory symptoms. This time, pneumonia is not suspected 22:22 patient is awake, somnolent, alert. Patient states that he does not remember what happened, states that he has history of seizures but does not take any medication, only trazodone at bedtime for sleeping. Other than feeling sleepy, patient has no other complaints. Patient reports that his name is Guilherme Cooper Lactic acid is elevated secondary to seizure, sepsis not suspect. Also, blood pressure has been on the lower side likely secondary to Versed. Patient received 0.1 mg of phenylephrine IV to help with the blood pressure and bradycardia. Patient is asymptomatic, awake, asking for food. Repeat lactic acid is 1.0 after IV fluids Urinalysis shows a small amount of blood in the urine, likely secondary from being straight cath. Patient's urine is positive for fentanyl, cocaine, THC, and benzodiazepines. Of note, patient was given Versed by the paramedics to stop the seizure. The seizure was likely triggered by drug abuse. Patient states that he does have history of previous seizures. Patient has never been on seizure medications. Patient tolerated Keppra well. I will sent to the patient's pharmacy a script for Keppra and the recommendation of following up with Neurology. Care consult has been placed for a SUDE evaluation, and patient will be provided with home Narcan. Patient remains somnolent, however he is easily arousable. On room air, patient's oxygen is in the mid 90s, but when patient falls asleep, he decided traits to 84%. Patient is currently on 3 L on OxyMask. Saturating 100%. Patient's current blood pressure 105/66, rate 54. I discussed the patient with Dr. Mazraeh, pt being admitted Medical Decision Making Lab Data Result diagrams: 09/12/21 20:50 09/12/21 20:50 Labs: Lab Results 09/12/21 09/12/21 09/12/21 Range/Units 20:31 20:50 20:50 WBC 6.0 (4.8-10.8) X10*3/uL RBC 4.32 L (4.60-5.80) X10*6/uL Hgb 14.0 (14.0-18.0) g/dl Hct 42.3 (42.0-52.0) % MCV 97.9 (80.0-98.0) fL MCH 32.4 (27.0-33.0) pg MCHC 33.1 (31.0-36.0) g/dl RDW 13.7 (11.0-16.0) % Plt Count 114 L (160-400) X10*3/uL MPV 12.1 (9.4-12.4) fL Immature Gran % (Auto) 0.7 H (0.0-0.4) % Neut % (Auto) 50.6 (45-73) % Lymph % (Auto) 40.9 H (20-40) % [place] % (Auto) 6.5 (2-11) % Eos % (Auto) 1.0 (0-4) % Baso % (Auto) 0.3 (0-2) % Lymph # (Auto) 2.4 (1.2-4.9) X10*3/uL [place] # (Auto) 0.4 (0.1-1.2) X10*3/uL Eos # (Auto) 0.1 (0.0-0.4) X10*3/uL Baso # (Auto) 0.0 (0.0-0.2) X10*3/uL Abs Immat Gran (auto) 0.04 H (0.00-0.03) X10*3/uL Absolute Neuts (auto) 3.0 (2.0-8.3) x10*3/uL Absolute Nucleated RBC 0.000 (0.0-0.012) X10*3/uL Nucleated RBC % (auto) 0.0 (0.0-0.2) /100WBC Smear Tech's Comments VERIFIED PT (10.0-13.1) SEC INR (0.9-1.1) D-Dimer High Sensitivty NG/ML VBG pH (7.32-7.43) VBG pCO2 mmHg VBG pO2 mmHg VBG HCO3 (22-26) mmol/L VBG O2 Saturation % VBG Base Excess mmol/L Sodium 143 (135-145) mmol/L Potassium 3.9 (3.3-5.1) mmol/L Chloride 107 (96-108) mmol/L Carbon Dioxide 20 L (22-29) mmol/L Anion Gap 20 (12-20) BUN 25 H (9-16) mg/dL Creatinine 1.25 (0.5-1.4) mg/dL Estim Creat Clear Calc 57.7 Estimated GFR 58 POC Glucose 170 H (60-115) mg/dL Random Glucose 183 H (60-115) mg/dL Lactic Acid (0.5-2.0) mmol/L Lactic Acid F/U @ 2Hr (0.5-2.0) mmol/L Calcium 8.4 (8.4-10.2) mg/dL Magnesium 2.1 (1.6-2.6) mg/dL Total Bilirubin 0.2 (0.0-1.0) mg/dL Direct Bilirubin < 0.2 (0.0-0.5) mg/dL AST 22 (5-37) U/L ALT 17 (0-40) U/L Alkaline Phosphatase 67 (39-117) U/L Ammonia (13-55) umol/L Total Creatine Kinase 163 (38-174) U/L Troponin I High Sens (<3.5-35.0) ng/L B-Natriuretic Peptide (<100) pg/mL Total Protein 6.7 (6.5-8.0) g/dL Albumin 4.0 (3.5-5.0) g/dL Lipase 38 (8-78) U/L Urine Color Urine Appearance Urine pH (5.0-8.0) Ur Specific [place] (1.005-1.025) Urine Protein (NEG-TRACE) MG/DL Urine Glucose (UA) (NEG) MG/DL Urine Ketones (NEG) MG/DL Urine Blood (NEG) Urine Nitrite (NEG) Ur Leukocyte Esterase (NEG) Urine RBC (0) /HPF Urine WBC (0-4) /HPF Ur Squamous Epith Cells /LPF Calcium Oxalate Crystal /LPF Urine Bacteria /LPF Hyaline Casts /LPF Granular Casts /LPF Urine Opiates Screen (Not Detect) Urine Fentanyl Screen (Not Detect) Ur Barbiturates Screen (Not Detect) Ur Phencyclidine Scrn (Not Detect) Ur Amphetamines Screen (Not Detect) U Benzodiazepines Scrn (Not Detect) Urine Cocaine Screen (Not Detect) U Marijuana (THC) Screen (Not Detect) Ethyl Alcohol mg/dL COVID-19 ([facility]IYAD) (Negative) COVID-19 Clin Com 09/12/21 09/12/21 09/12/21 Range/Units 20:50 20:50 20:50 WBC (4.8-10.8) X10*3/uL RBC (4.60-5.80) X10*6/uL Hgb (14.0-18.0) g/dl Hct (42.0-52.0) % MCV (80.0-98.0) fL MCH (27.0-33.0) pg MCHC (31.0-36.0) g/dl RDW (11.0-16.0) % Plt Count (160-400) X10*3/uL MPV (9.4-12.4) fL Immature Gran % (Auto) (0.0-0.4) % Neut % (Auto) (45-73) % Lymph % (Auto) (20-40) % [place] % (Auto) (2-11) % Eos % (Auto) (0-4) % Baso % (Auto) (0-2) % Lymph # (Auto) (1.2-4.9) X10*3/uL [place] # (Auto) (0.1-1.2) X10*3/uL Eos # (Auto) (0.0-0.4) X10*3/uL Baso # (Auto) (0.0-0.2) X10*3/uL Abs Immat Gran (auto) (0.00-0.03) X10*3/uL Absolute Neuts (auto) (2.0-8.3) x10*3/uL Absolute Nucleated RBC (0.0-0.012) X10*3/uL Nucleated RBC % (auto) (0.0-0.2) /100WBC Smear Tech's Comments PT 12.4 (10.0-13.1) SEC INR 1.1 (0.9-1.1) D-Dimer High Sensitivty < 150 NG/ML VBG pH (7.32-7.43) VBG pCO2 mmHg VBG pO2 mmHg VBG HCO3 (22-26) mmol/L VBG O2 Saturation % VBG Base Excess mmol/L Sodium (135-145) mmol/L Potassium (3.3-5.1) mmol/L Chloride (96-108) mmol/L Carbon Dioxide (22-29) mmol/L Anion Gap (12-20) BUN (9-16) mg/dL Creatinine (0.5-1.4) mg/dL Estim Creat Clear Calc Estimated GFR POC Glucose (60-115) mg/dL Random Glucose (60-115) mg/dL Lactic Acid (0.5-2.0) mmol/L Lactic Acid F/U @ 2Hr (0.5-2.0) mmol/L Calcium (8.4-10.2) mg/dL Magnesium (1.6-2.6) mg/dL Total Bilirubin (0.0-1.0) mg/dL Direct Bilirubin (0.0-0.5) mg/dL AST (5-37) U/L ALT (0-40) U/L Alkaline Phosphatase (39-117) U/L Ammonia (13-55) umol/L Total Creatine Kinase (38-174) U/L Troponin I High Sens < 3.5 (<3.5-35.0) ng/L B-Natriuretic Peptide (<100) pg/mL Total Protein (6.5-8.0) g/dL Albumin (3.5-5.0) g/dL Lipase (8-78) U/L Urine Color Urine Appearance Urine pH (5.0-8.0) Ur Specific [place] (1.005-1.025) Urine Protein (NEG-TRACE) MG/DL Urine Glucose (UA) (NEG) MG/DL Urine Ketones (NEG) MG/DL Urine Blood (NEG) Urine Nitrite (NEG) Ur Leukocyte Esterase (NEG) Urine RBC (0) /HPF Urine WBC (0-4) /HPF Ur Squamous Epith Cells /LPF Calcium Oxalate Crystal /LPF Urine Bacteria /LPF Hyaline Casts /LPF Granular Casts /LPF Urine Opiates Screen (Not Detect) Urine Fentanyl Screen (Not Detect) Ur Barbiturates Screen (Not Detect) Ur Phencyclidine Scrn (Not Detect) Ur Amphetamines Screen (Not Detect) U Benzodiazepines Scrn (Not Detect) Urine Cocaine Screen (Not Detect) U Marijuana (THC) Screen (Not Detect) Ethyl Alcohol mg/dL COVID-19 ([facility]YAD) Negative (Negative) COVID-19 Clin Com See Note 09/12/21 09/12/21 09/12/21 Range/Units 20:50 20:50 20:50 WBC (4.8-10.8) X10*3/uL RBC (4.60-5.80) X10*6/uL Hgb (14.0-18.0) g/dl Hct (42.0-52.0) % MCV (80.0-98.0) fL MCH (27.0-33.0) pg MCHC (31.0-36.0) g/dl RDW (11.0-16.0) % Plt Count (160-400) X10*3/uL MPV (9.4-12.4) fL Immature Gran % (Auto) (0.0-0.4) % Neut % (Auto) (45-73) % Lymph % (Auto) (20-40) % [place] % (Auto) (2-11) % Eos % (Auto) (0-4) % Baso % (Auto) (0-2) % Lymph # (Auto) (1.2-4.9) X10*3/uL [place] # (Auto) (0.1-1.2) X10*3/uL Eos # (Auto) (0.0-0.4) X10*3/uL Baso # (Auto) (0.0-0.2) X10*3/uL Abs Immat Gran (auto) (0.00-0.03) X10*3/uL Absolute Neuts (auto) (2.0-8.3) x10*3/uL Absolute Nucleated RBC (0.0-0.012) X10*3/uL Nucleated RBC % (auto) (0.0-0.2) /100WBC Smear Tech's Comments PT (10.0-13.1) SEC INR (0.9-1.1) D-Dimer High Sensitivty NG/ML VBG pH (7.32-7.43) VBG pCO2 mmHg VBG pO2 mmHg VBG HCO3 (22-26) mmol/L VBG O2 Saturation % VBG Base Excess mmol/L Sodium (135-145) mmol/L Potassium (3.3-5.1) mmol/L Chloride (96-108) mmol/L Carbon Dioxide (22-29) mmol/L Anion Gap (12-20) BUN (9-16) mg/dL Creatinine (0.5-1.4) mg/dL Estim Creat Clear Calc Estimated GFR POC Glucose (60-115) mg/dL Random Glucose (60-115) mg/dL Lactic Acid 5.9 H* (0.5-2.0) mmol/L Lactic Acid F/U @ 2Hr (0.5-2.0) mmol/L Calcium (8.4-10.2) mg/dL Magnesium (1.6-2.6) mg/dL Total Bilirubin (0.0-1.0) mg/dL Direct Bilirubin (0.0-0.5) mg/dL AST (5-37) U/L ALT (0-40) U/L Alkaline Phosphatase (39-117) U/L Ammonia (13-55) umol/L Total Creatine Kinase Cancelled (38-174) U/L Troponin I High Sens (<3.5-35.0) ng/L B-Natriuretic Peptide 70 (<100) pg/mL Total Protein (6.5-8.0) g/dL Albumin (3.5-5.0) g/dL Lipase (8-78) U/L Urine Color Urine Appearance Urine pH (5.0-8.0) Ur Specific [place] (1.005-1.025) Urine Protein (NEG-TRACE) MG/DL Urine Glucose (UA) (NEG) MG/DL Urine Ketones (NEG) MG/DL Urine Blood (NEG) Urine Nitrite (NEG) Ur Leukocyte Esterase (NEG) Urine RBC (0) /HPF Urine WBC (0-4) /HPF Ur Squamous Epith Cells /LPF Calcium Oxalate Crystal /LPF Urine Bacteria /LPF Hyaline Casts /LPF Granular Casts /LPF Urine Opiates Screen (Not Detect) Urine Fentanyl Screen (Not Detect) Ur Barbiturates Screen (Not Detect) Ur Phencyclidine Scrn (Not Detect) Ur Amphetamines Screen (Not Detect) U Benzodiazepines Scrn (Not Detect) Urine Cocaine Screen (Not Detect) U Marijuana (THC) Screen (Not Detect) Ethyl Alcohol < 10 mg/dL COVID-19 ([facility]AD) (Negative) COVID-19 Clin Com 09/12/21 09/12/21 09/12/21 Range/Units 21:01 21:52 23:55 WBC (4.8-10.8) X10*3/uL RBC (4.60-5.80) X10*6/uL Hgb (14.0-18.0) g/dl Hct (42.0-52.0) % MCV (80.0-98.0) fL MCH (27.0-33.0) pg MCHC (31.0-36.0) g/dl RDW (11.0-16.0) % Plt Count (160-400) X10*3/uL MPV (9.4-12.4) fL Immature Gran % (Auto) (0.0-0.4) % Neut % (Auto) (45-73) % Lymph % (Auto) (20-40) % [place] % (Auto) (2-11) % Eos % (Auto) (0-4) % Baso % (Auto) (0-2) % Lymph # (Auto) (1.2-4.9) X10*3/uL [place] # (Auto) (0.1-1.2) X10*3/uL Eos # (Auto) (0.0-0.4) X10*3/uL Baso # (Auto) (0.0-0.2) X10*3/uL Abs Immat Gran (auto) (0.00-0.03) X10*3/uL Absolute Neuts (auto) (2.0-8.3) x10*3/uL Absolute Nucleated RBC (0.0-0.012) X10*3/uL Nucleated RBC % (auto) (0.0-0.2) /100WBC Smear Tech's Comments PT (10.0-13.1) SEC INR (0.9-1.1) D-Dimer High Sensitivty NG/ML VBG pH 7.27 L (7.32-7.43) VBG pCO2 55 mmHg VBG pO2 66 mmHg VBG HCO3 25 (22-26) mmol/L VBG O2 Saturation 87.0 % VBG Base Excess -2.2 mmol/L Sodium (135-145) mmol/L Potassium (3.3-5.1) mmol/L Chloride (96-108) mmol/L Carbon Dioxide (22-29) mmol/L Anion Gap (12-20) BUN (9-16) mg/dL Creatinine (0.5-1.4) mg/dL Estim Creat Clear Calc Estimated GFR POC Glucose (60-115) mg/dL Random Glucose (60-115) mg/dL Lactic Acid (0.5-2.0) mmol/L Lactic Acid F/U @ 2Hr (0.5-2.0) mmol/L Calcium (8.4-10.2) mg/dL Magnesium (1.6-2.6) mg/dL Total Bilirubin (0.0-1.0) mg/dL Direct Bilirubin (0.0-0.5) mg/dL AST (5-37) U/L ALT (0-40) U/L Alkaline Phosphatase (39-117) U/L Ammonia 34 (13-55) umol/L Total Creatine Kinase (38-174) U/L Troponin I High Sens (<3.5-35.0) ng/L B-Natriuretic Peptide (<100) pg/mL Total Protein (6.5-8.0) g/dL Albumin (3.5-5.0) g/dL Lipase (8-78) U/L Urine Color DK YELLOW Urine Appearance HAZY Urine pH 6.0 (5.0-8.0) Ur Specific [place] >= 1.030 H (1.005-1.025) Urine Protein 2+ H (NEG-TRACE) MG/DL Urine Glucose (UA) NEG (NEG) MG/DL Urine Ketones NEG (NEG) MG/DL Urine Blood 3+ H (NEG) Urine Nitrite NEG (NEG) Ur Leukocyte Esterase NEG (NEG) Urine RBC 5-9 H (0) /HPF Urine WBC 0 (0-4) /HPF Ur Squamous Epith Cells NONE /LPF Calcium Oxalate Crystal 2+ /LPF Urine Bacteria TRACE /LPF Hyaline Casts 0-2 /LPF Granular Casts 1-4 /LPF Urine Opiates Screen (Not Detect) Urine Fentanyl Screen (Not Detect) Ur Barbiturates Screen (Not Detect) Ur Phencyclidine Scrn (Not Detect) Ur Amphetamines Screen (Not Detect) U Benzodiazepines Scrn (Not Detect) Urine Cocaine Screen (Not Detect) U Marijuana (THC) Screen (Not Detect) Ethyl Alcohol mg/dL COVID-19 ([facility]YAD) (Negative) COVID-19 Clin Com 09/12/21 09/13/21 Range/Units 23:55 00:05 WBC (4.8-10.8) X10*3/uL RBC (4.60-5.80) X10*6/uL Hgb (14.0-18.0) g/dl Hct (42.0-52.0) % MCV (80.0-98.0) fL MCH (27.0-33.0) pg MCHC (31.0-36.0) g/dl RDW (11.0-16.0) % Plt Count (160-400) X10*3/uL MPV (9.4-12.4) fL Immature Gran % (Auto) (0.0-0.4) % Neut % (Auto) (45-73) % Lymph % (Auto) (20-40) % [place] % (Auto) (2-11) % Eos % (Auto) (0-4) % Baso % (Auto) (0-2) % Lymph # (Auto) (1.2-4.9) X10*3/uL [place] # (Auto) (0.1-1.2) X10*3/uL Eos # (Auto) (0.0-0.4) X10*3/uL Baso # (Auto) (0.0-0.2) X10*3/uL Abs Immat Gran (auto) (0.00-0.03) X10*3/uL Absolute Neuts (auto) (2.0-8.3) x10*3/uL Absolute Nucleated RBC (0.0-0.012) X10*3/uL Nucleated RBC % (auto) (0.0-0.2) /100WBC Smear Tech's Comments PT (10.0-13.1) SEC INR (0.9-1.1) D-Dimer High Sensitivty NG/ML VBG pH (7.32-7.43) VBG pCO2 mmHg VBG pO2 mmHg VBG HCO3 (22-26) mmol/L VBG O2 Saturation % VBG Base Excess mmol/L Sodium (135-145) mmol/L Potassium (3.3-5.1) mmol/L Chloride (96-108) mmol/L Carbon Dioxide (22-29) mmol/L Anion Gap (12-20) BUN (9-16) mg/dL Creatinine (0.5-1.4) mg/dL Estim Creat Clear Calc Estimated GFR POC Glucose (60-115) mg/dL Random Glucose (60-115) mg/dL Lactic Acid (0.5-2.0) mmol/L Lactic Acid F/U @ 2Hr 1.0 (0.5-2.0) mmol/L Calcium (8.4-10.2) mg/dL Magnesium (1.6-2.6) mg/dL Total Bilirubin (0.0-1.0) mg/dL Direct Bilirubin (0.0-0.5) mg/dL AST (5-37) U/L ALT (0-40) U/L Alkaline Phosphatase (39-117) U/L Ammonia (13-55) umol/L Total Creatine Kinase (38-174) U/L Troponin I High Sens (<3.5-35.0) ng/L B-Natriuretic Peptide (<100) pg/mL Total Protein (6.5-8.0) g/dL Albumin (3.5-5.0) g/dL Lipase (8-78) U/L Urine Color Urine Appearance Urine pH (5.0-8.0) Ur Specific [place] (1.005-1.025) Urine Protein (NEG-TRACE) MG/DL Urine Glucose (UA) (NEG) MG/DL Urine Ketones (NEG) MG/DL Urine Blood (NEG) Urine Nitrite (NEG) Ur Leukocyte Esterase (NEG) Urine RBC (0) /HPF Urine WBC (0-4) /HPF Ur Squamous Epith Cells /LPF Calcium Oxalate Crystal /LPF Urine Bacteria /LPF Hyaline Casts /LPF Granular Casts /LPF Urine Opiates Screen Not Detected (Not Detect) Urine Fentanyl Screen POSITIVE H (Not Detect) Ur Barbiturates Screen Not Detected (Not Detect) Ur Phencyclidine Scrn Not Detected (Not Detect) Ur Amphetamines Screen Not Detected (Not Detect) U Benzodiazepines Scrn POSITIVE H (Not Detect) Urine Cocaine Screen POSITIVE H (Not Detect) U Marijuana (THC) Screen POSITIVE H (Not Detect) Ethyl Alcohol mg/dL COVID-19 ([facility]) (Negative) COVID-19 Clin Com Imaging Data Head and cervical spine CT: Radiologist's impression: HEAD: Small low-density extra-axial mass in the anterior aspect of the right middle cranial fossa abutting the anterior tip of the temporal lobe compatible with an arachnoid cyst measuring 2.2 x 1.6 cm in size. No other intracranial mass. No intra or extra-axial hemorrhage. No midline shift or herniation. Basal cisterns are patent. No ventriculomegaly. No territorial encephalomalacia. The irene-white matter differentiation is maintained. No significant volume loss. Patchy periventricular and deep white matter hypoattenuation is consistent with mild small vessel ischemic changes. No calvarial fracture or soft tissue abnormality. The mastoid air cells and visualized portions of the paranasal sinuses are well aerated. CERVICAL SPINE: Alignment: Mild reversal of the normal cervical lordosis. Minimal retrolisthesis at C5-C6 and C6-C7. No additional subluxation. Vertebra: No acute fracture. No prevertebral soft tissue swelling. Degenerative disc disease: Moderate cervical spondylosis with disc height loss, endplate sclerosis and proliferative change at C3-C4 through C6-C7. Facet arthrosis greatest on the right at C4-C5. Multilevel bilateral uncovertebral spurring. Other findings: No cervical lymphadenopathy or mass. Visualized major salivary glands and thyroid gland are unremarkable. Mild paraseptal emphysema at the lung apices. Small 4 mm metallic foreign body in the superficial subcutaneous fat overlying the right neck and sternocleidomastoid muscle noted. CT/CT head/brain wo con IMPRESSION: ? 1. No acute intracranial abnormality. 2. No traumatic subluxation or acute cervical spine fracture. Chest x-ray: Radiologist's impression: FINDINGS: Lungs are slightly hypoinflated. Ill-defined/patchy opacity at the left lung base, likely atelectasis. No other focal airspace opacity. No pleural effusion or pneumothorax. Normal cardiomediastinal silhouette. No evidence of pulmonary edema. No acute osseous injury. XR/XR chest 1V IMPRESSION: ? 1. Hypoinflated lungs with probable mild left basilar atelectasis. Small volume aspiration or early pneumonia could give a similar appearance. Critical Care Time Critical Care Time Critical Care Time: Yes Total Critical Care Time: 45 Attestation: I have personally provided critical care time. Time includes review of lab data, radiology results, discussion with consultants, and monitoring for potential decompensation. Intervention performed as documented. Discharge Plan Discharge Clinical Impression: Generalized seizure, Substance abuse Patient Disposition: Admitted as Observation Instructions: Polysubstance Abuse (ED), Generalized Tonic Clonic Seizures (ED) Prescriptions: New levetiracetam [Keppra] 500 mg tablet 500 mg PO BID Qty: 60 1RF
[2021-09-12 21:01] LABS: Basophils Percent Auto 0.3 % (0-2); PLT CLUMP 1; SCAN SMEAR FLAG 1
[2021-09-12] MEDS: 0.9 % Sodium Chloride 1,000 ML 999 ML IVCONT ×2 (21:01→22:38)
[2021-09-12] MEDS: levETIRAcetam in NaCl (iso-os) 1,500 MG/100 ML PIGGYBACK 400 MG IV (21:02)
[2021-09-12 21:03] LABS: Eosinophils Absolute Auto 0.1 X10*3/uL (0.0-0.4); Hematocrit 42.3 % (42.0-52.0); Imm Gran Abs Auto 0.04 X10*3/uL (0.00-0.03); Imm Gran Pct Auto 0.7 % (0.0-0.4); Lymphocytes Absolute Auto 2.4 X10*3/uL (1.2-4.9); Lymphocytes Percent Auto 40.9 % (20-40); MANUAL DIFF FLAG SCAN; Mean Corpuscular HGB Conc 33.1 g/dl (31.0-36.0); Mean Corpuscular Hemoglobin 32.4 pg (27.0-33.0); Mean Corpuscular Volume 97.9 fL (80.0-98.0); Mean Platelet Volume 12.1 fL (9.4-12.4); Monocytes Absolute Auto 0.4 X10*3/uL (0.1-1.2); Monocytes Percent Auto 6.5 % (2-11); Neutrophils Percent Auto 50.6 % (45-73); Red Blood Count 4.32 X10*6/uL (4.60-5.80); Red Cell Distribution Width 13.7 % (11.0-16.0)
[2021-09-12 21:05] LABS: VBG Base Excess -2.2 mmol/L; VBG HCO3 25 mmol/L (22-26); VBG pCO2 55 mmHg; VBG pH 7.27 (7.32-7.43); VBG pO2 66 mmHg
[2021-09-12 21:07] VITALS: BP 111/72; PULSE 64; RESP 16; O2SAT 98
[2021-09-12 21:07] LABS: INTERNATIONAL NORM RATIO 1.1 (0.9-1.1); Prothrombin Time 12.4 SEC (10.0-13.1)
[2021-09-12 21:10] LABS: Glucose, Whole Blood 170 mg/dL (60-115)
[2021-09-12 21:11] LABS: D Dimer High Sensitivity < 150 NG/ML
[2021-09-12 21:22] LABS: Platelet Count 114 X10*3/uL (160-400)
[2021-09-12 21:23] LABS: SLIDE REVIEW VERIFIED
[2021-09-12 21:24] LABS: Alanine Aminotransferase 17 U/L (0-40); Alkaline Phosphatase 67 U/L (39-117); Anion Gap 20 (12-20); Aspartate Amino Transferase 22 U/L (5-37); Bilirubin Direct < 0.2 mg/dL (0.0-0.5); Bilirubin Total 0.2 mg/dL (0.0-1.0); Blood Urea Nitrogen 25 mg/dL (9-16); Calcium 8.4 mg/dL (8.4-10.2); Carbon Dioxide 20 mmol/L (22-29); Chloride 107 mmol/L (96-108); Creatinine Clr Calc Pharmacy 57.7; Estimated Glomerular Filt Rate 58; Glucose Random 183 mg/dL (60-115); Lipase 38 U/L (8-78); Magnesium 2.1 mg/dL (1.6-2.6); Potassium 3.9 mmol/L (3.3-5.1); Sodium 143 mmol/L (135-145); Total Protein 6.7 g/dL (6.5-8.0)
[2021-09-12 21:27] LABS: Troponin-I High Sensitivity < 3.5 ng/L (<3.5-35.0)
[2021-09-12 21:28] LABS: B Type Natriuretic Peptide 70 pg/mL (<100); Ethanol < 10 mg/dL
[2021-09-12 21:32] LABS: Venous Blood Gas Refer to POC result
[2021-09-12 21:37] LABS: Lactic Acid 5.9 mmol/L (0.5-2.0)
[2021-09-12 21:47] LABS: COVID-19 Test Negative (Negative)
[2021-09-12 22:39] VITALS: BP 87/51; PULSE 49; RESP 12; O2SAT 96
[2021-09-12 22:54] LABS: Reflex Lactate? Lactic Acid Added
[2021-09-12 23:18] LABS: Ammonia 34 umol/L (13-55)
[2021-09-12 23:56] VITALS: BP 95/58; PULSE 64; RESP 16
[2021-09-13] VITALS (9 sets, daily range): BP systolic 86–115; BP diastolic 49–70; PULSE 42–56; RESP 10–18; TEMP 36.5–36.8; O2SAT 92–96
--- NOTE | 2021-09-13 | ECG_ITS ---
Test Reason : bradycardia Blood Pressure : / mmHG Vent. Rate : 045 BPM Atrial Rate : 045 BPM P-R Int : 140 ms QRS Dur : 092 ms QT Int : 480 ms P-R-T Axes : 062 068 055 degrees QTc Int : 415 ms Sinus bradycardia Otherwise normal ECG When compared with ECG of 12-SEP-2021 20:40, Vent. rate has decreased BY 33 BPM QT has shortened Referred By: Babita Ellis Electronically Signed By:JOHN SUÁREZ
[2021-09-13] MEDS: 0.9 % Sodium Chloride 1,000 ML 999 ML IVCONT (00:02)
[2021-09-13 00:06] LABS: Appearance Urine HAZY; Color Urine DK YELLOW; Glucose Urine UA NEG (NEG); Leukocyte Esterase Urine NEG (NEG); Nitrite Urine NEG (NEG); Specific Gravity - Urine >= 1.030 (1.005-1.025); UACC Culture Trigger NO; Urine Blood 3+ (NEG); Urine Ketones NEG (NEG); Urine Protein 2+ MG/DL (NEG-TRACE)
[2021-09-13 00:15] LABS: Bacteria Urine TRACE /LPF; Calcium Oxalate Crystals Urine 2+ /LPF; Hyaline Casts Urine 0-2 /LPF; WBC Urine 0 /HPF (0-4)
[2021-09-13 00:20] LABS: Amphetamine Screen Urine Not Detected (Not Detect); Barbiturates, Urine Not Detected (Not Detect); Benzodiazepines Screen Urine POSITIVE (Not Detect); Cannabinoid Screen Urine POSITIVE (Not Detect); Cocaine Screen Urine POSITIVE (Not Detect); Fentanyl, urine POSITIVE (Not Detect); Opiate Screen Urine Not Detected (Not Detect); Phencyclidine Screen Urine Not Detected (Not Detect)
--- NOTE | 2021-09-13 00:27 | PC.NURSE ---
Pt tried off of O2 with SpO2 monitored. Pt SpO2 decreased to 82% without oxygen while sleeping in bed. Pt will remain on O2 at 3 L/min via oxymask.
[2021-09-13] MEDS: Phenylephrine HCL 10 MG/ML VIAL IVPUSH ×2 (01:37→02:53)
[2021-09-13] MEDS: Naloxone HCl Nasal TAKE HOME 4 MG SPRAY NOSTRILALT (02:02)
--- NOTE | 2021-09-13 02:02 | PC.NURSE ---
Scanned NARCAN and left at bedside for take home order per MAR
[2021-09-13] MEDS: Lactated Ringers 1,000 ML 999 ML IV (02:53)
--- NOTE | 2021-09-13 06:22 | P.HPHOSP_ITS ---
History of Present Illness Date of Service: 09/13/21 Chief Complaint: Seizure episode 56-year-old male with a past medical history of polysubstance abuse, and history of seizure noncompliant with medications presents to the hospital after witnessed seizure on the street. Patient is alert, oriented, reports that he usually does not use heroin, and used heroin today, and immediately after became very ill, and had multiple episodes of seizure. Patient received 4 mg of Versed by EMS, on arrival to the ED he also received 2 injections of Narcan, he has now become bradycardic, and has developed hypoxia. Patient reports dizziness, but no headache. denies having any chest pain, no cough, no shortness of breath, no abdominal pain, no diarrhea or constipation. No urinary symptoms and no lower extremity edema On arrival to the ED patient was found to have a heart rate initially in the 90s, blood pressure 120/80, but then his blood pressure dropped to 80s over 50s, with a heart rate in the 40s. Patient was also noted to be hypoxic while sleeping dropping to the 80s. Patient received 3 L of bolus fluid with slight improvement his BP Labs are significant for WBC count of 6.0, hemoglobin 4.32, platelet of 114, pH of 7.27, bicarb of 20, BUN of 25, creatinine of 1.25 with no previous for comparison lactic acid 5.9, UA negative, UDS positive for fentanyl, cocaine, and THC as well as benzo Chest x-ray shows hypoinflated lungs with probable mid left basilar atelectasis. Small volume aspiration or early pneumonia could give a similar appearance Given the hypoxia, hypertension bradycardia patient will be admitted for further management Review of Systems Review of Systems: Yes all other systems are reviewed and are negative [facility] [place] Medical History (Updated 09/13/21 @ 06:32 by Sudha Escobedo MD) Polysubstance abuse Family History (Updated 09/13/21 @ 06:33 by Sudha Escobedo MD) Other No family history of coronary artery disease Surgical History (Updated 09/13/21 @ 06:33 by Sudha Escobedo MD) No pertinent past surgical history Social History (Updated 09/13/21 @ 06:33 by Sudha Escobedo MD) Alcohol intake: current Patient Tobacco Use Status: Current everyday Tobacco user Tobacco use type: Cigarette Cigarette Packs Per Day: 0.5 Use of substances other than those prescribed or required for medical reasons: Yes Substance Use Type: Crack/Cocaine and Marijuana Advance Directives: No Advance Directives Information Provided: No Meds Allergies Allergy/AdvReac Type Severity Reaction Status Date / Time No Known Allergies Allergy Verified 09/13/21 02:52 Active Medications: Current Medications Acetaminophen (Acetaminophen 325 Mg Tablet) 650 mg PO Q6H PRN PRN Reason: Pain, Mild (Pain Scale 1-3) Docusate Sodium (Docusate Sodium 100 Mg Capsule) 100 mg PO DAILY PRN PRN Reason: Constipation Enoxaparin Sodium (Enoxaparin Sodium 40 Mg/0.4 Ml Syringe) 40 mg SUBCUT Q24H NAYELY Ondansetron HCl (Ondansetron Hcl 4 Mg/2 Ml Vial) 4 mg IVPUSH Q8H PRN PRN Reason: Nausea and Vomiting Sodium Chloride (0.9 % Sodium Chloride Flush 3 Ml Syringe) 3 ml IVFLUSH QSHIFT NAYELY Physical Exam Vital Signs and Narrative: Vital Signs: Last Vital Signs Temp 98.3 F 09/13/21 04:23 Pulse 42 L 09/13/21 06:10 Resp 13 09/13/21 06:10 BP 107/54 L 09/13/21 06:10 Pulse Ox 96 09/13/21 06:10 O2 Del Method 09/13/21 06:10 O2 Flow Rate 3 09/13/21 06:10 Oxygen Flow Rate 15 09/12/21 20:36 BMI result Body Mass Index 24.4 Const: General: cooperative and no acute distress Orientation/consciousness: patient oriented x3 Eyes: Other: No pinpoint pupils General: appearance normal, both eyes and all related structures Pupils: Equal, round and reactive pupils present Resp: Effort & Inspection: normal respiratory effort Auscultation: clear to auscultation bilaterally Cardio: Rate: regular rate Rhythm: regular rhythm GI: Palpation (GI): Soft to palpation Auscultation: normal bowel sounds Skin: General skin exam: no rashes or lesions noted Neuro: General: patient oriented x3 Cranial nerves: Yes Equal, round and reactive pupils present Cognition (Neuro): normal cognition Extrem: General: Yes normal to inspection and Yes no pedal edema Results Labs CBC and Chem 7: 09/12/21 20:50 09/12/21 20:50 Labs: Laboratory Results - last 24 hr 09/12/21 09/12/21 09/12/21 20:31 20:50 20:50 MCV 97.9 MCH 32.4 MCHC 33.1 RDW 13.7 Plt Count 114 L MPV 12.1 Immature Gran % (Auto) 0.7 H Neut % (Auto) 50.6 Lymph % (Auto) 40.9 H [place] % (Auto) 6.5 Eos % (Auto) 1.0 Baso % (Auto) 0.3 Lymph # (Auto) 2.4 [place] # (Auto) 0.4 Eos # (Auto) 0.1 Baso # (Auto) 0.0 Abs Immat Gran (auto) 0.04 H Absolute Neuts (auto) 3.0 Absolute Nucleated RBC 0.000 Nucleated RBC % (auto) 0.0 Smear Tech's Comments VERIFIED PT INR D-Dimer High Sensitivty VBG pH VBG pCO2 VBG pO2 VBG HCO3 VBG O2 Saturation VBG Base Excess Anion Gap 20 Estim Creat Clear Calc 57.7 Estimated GFR 58 POC Glucose 170 H Random Glucose 183 H Lactic Acid Lactic Acid F/U @ 2Hr Calcium 8.4 Magnesium 2.1 Total Bilirubin 0.2 Direct Bilirubin < 0.2 AST 22 ALT 17 Alkaline Phosphatase 67 Ammonia Total Creatine Kinase 163 B-Natriuretic Peptide Total Protein 6.7 Albumin 4.0 Lipase 38 Urine Color Urine Appearance Urine pH Ur Specific [place] Urine Protein Urine Glucose (UA) Urine Ketones Urine Blood Urine Nitrite Ur Leukocyte Esterase Urine RBC Urine WBC Ur Squamous Epith Cells Calcium Oxalate Crystal Urine Bacteria Hyaline Casts Granular Casts Urine Opiates Screen Urine Fentanyl Screen Ur Barbiturates Screen Ur Phencyclidine Scrn Ur Amphetamines Screen U Benzodiazepines Scrn Urine Cocaine Screen U Marijuana (THC) Screen Ethyl Alcohol COVID-19 (ZIYAD) COVID-19 Clin Com 09/12/21 09/12/21 09/12/21 20:50 20:50 20:50 MCV MCH MCHC RDW Plt Count MPV Immature Gran % (Auto) Neut % (Auto) Lymph % (Auto) [place] % (Auto) Eos % (Auto) Baso % (Auto) Lymph # (Auto) [place] # (Auto) Eos # (Auto) Baso # (Auto) Abs Immat Gran (auto) Absolute Neuts (auto) Absolute Nucleated RBC Nucleated RBC % (auto) Smear Tech's Comments PT 12.4 INR 1.1 D-Dimer High Sensitivty < 150 VBG pH VBG pCO2 VBG pO2 VBG HCO3 VBG O2 Saturation VBG Base Excess Anion Gap Estim Creat Clear Calc Estimated GFR POC Glucose Random Glucose Lactic Acid 5.9 H* Lactic Acid F/U @ 2Hr Calcium Magnesium Total Bilirubin Direct Bilirubin AST ALT Alkaline Phosphatase Ammonia Total Creatine Kinase B-Natriuretic Peptide Total Protein Albumin Lipase Urine Color Urine Appearance Urine pH Ur Specific [place] Urine Protein Urine Glucose (UA) Urine Ketones Urine Blood Urine Nitrite Ur Leukocyte Esterase Urine RBC Urine WBC Ur Squamous Epith Cells Calcium Oxalate Crystal Urine Bacteria Hyaline Casts Granular Casts Urine Opiates Screen Urine Fentanyl Screen Ur Barbiturates Screen Ur Phencyclidine Scrn Ur Amphetamines Screen U Benzodiazepines Scrn Urine Cocaine Screen U Marijuana (THC) Screen Ethyl Alcohol COVID-19 (ZIYAD) Negative COVID-19 Optyn Com See Note 09/12/21 09/12/21 09/12/21 20:50 20:50 21:01 MCV MCH MCHC RDW Plt Count MPV Immature Gran % (Auto) Neut % (Auto) Lymph % (Auto) [place] % (Auto) Eos % (Auto) Baso % (Auto) Lymph # (Auto) [place] # (Auto) Eos # (Auto) Baso # (Auto) Abs Immat Gran (auto) Absolute Neuts (auto) Absolute Nucleated RBC Nucleated RBC % (auto) Smear Tech's Comments PT INR D-Dimer High Sensitivty VBG pH 7.27 L VBG pCO2 55 VBG pO2 66 VBG HCO3 25 VBG O2 Saturation 87.0 VBG Base Excess -2.2 Anion Gap Estim Creat Clear Calc Estimated GFR POC Glucose Random Glucose Lactic Acid Lactic Acid F/U @ 2Hr Calcium Magnesium Total Bilirubin Direct Bilirubin AST ALT Alkaline Phosphatase Ammonia Total Creatine Kinase Cancelled B-Natriuretic Peptide 70 Total Protein Albumin Lipase Urine Color Urine Appearance Urine pH Ur Specific [place] Urine Protein Urine Glucose (UA) Urine Ketones Urine Blood Urine Nitrite Ur Leukocyte Esterase Urine RBC Urine WBC Ur Squamous Epith Cells Calcium Oxalate Crystal Urine Bacteria Hyaline Casts Granular Casts Urine Opiates Screen Urine Fentanyl Screen Ur Barbiturates Screen Ur Phencyclidine Scrn Ur Amphetamines Screen U Benzodiazepines Scrn Urine Cocaine Screen U Marijuana (THC) Screen Ethyl Alcohol < 10 COVID-19 (ZIYAD) COVID-19 Optyn Com 09/12/21 09/12/21 09/12/21 21:52 23:55 23:55 MCV MCH MCHC RDW Plt Count MPV Immature Gran % (Auto) Neut % (Auto) Lymph % (Auto) [place] % (Auto) Eos % (Auto) Baso % (Auto) Lymph # (Auto) [place] # (Auto) Eos # (Auto) Baso # (Auto) Abs Immat Gran (auto) Absolute Neuts (auto) Absolute Nucleated RBC Nucleated RBC % (auto) Smear Tech's Comments PT INR D-Dimer High Sensitivty VBG pH VBG pCO2 VBG pO2 VBG HCO3 VBG O2 Saturation VBG Base Excess Anion Gap Estim Creat Clear Calc Estimated GFR POC Glucose Random Glucose Lactic Acid Lactic Acid F/U @ 2Hr Calcium Magnesium Total Bilirubin Direct Bilirubin AST ALT Alkaline Phosphatase Ammonia 34 Total Creatine Kinase B-Natriuretic Peptide Total Protein Albumin Lipase Urine Color DK YELLOW Urine Appearance HAZY Urine pH 6.0 Ur Specific [place] >= 1.030 H Urine Protein 2+ H Urine Glucose (UA) NEG Urine Ketones NEG Urine Blood 3+ H Urine Nitrite NEG Ur Leukocyte Esterase NEG Urine RBC 5-9 H Urine WBC 0 Ur Squamous Epith Cells NONE Calcium Oxalate Crystal 2+ Urine Bacteria TRACE Hyaline Casts 0-2 Granular Casts 1-4 Urine Opiates Screen Not Detected Urine Fentanyl Screen POSITIVE H Ur Barbiturates Screen Not Detected Ur Phencyclidine Scrn Not Detected Ur Amphetamines Screen Not Detected U Benzodiazepines Scrn POSITIVE H Urine Cocaine Screen POSITIVE H U Marijuana (THC) Screen POSITIVE H Ethyl Alcohol COVID-19 (ZIYAD) COVID-19 Clin Com 09/13/21 00:05 MCV MCH MCHC RDW Plt Count MPV Immature Gran % (Auto) Neut % (Auto) Lymph % (Auto) [place] % (Auto) Eos % (Auto) Baso % (Auto) Lymph # (Auto) [place] # (Auto) Eos # (Auto) Baso # (Auto) Abs Immat Gran (auto) Absolute Neuts (auto) Absolute Nucleated RBC Nucleated RBC % (auto) Smear Tech's Comments PT INR D-Dimer High Sensitivty VBG pH VBG pCO2 VBG pO2 VBG HCO3 VBG O2 Saturation VBG Base Excess Anion Gap Estim Creat Clear Calc Estimated GFR POC Glucose Random Glucose Lactic Acid Lactic Acid F/U @ 2Hr 1.0 Calcium Magnesium Total Bilirubin Direct Bilirubin AST ALT Alkaline Phosphatase Ammonia Total Creatine Kinase B-Natriuretic Peptide Total Protein Albumin Lipase Urine Color Urine Appearance Urine pH Ur Specific [place] Urine Protein Urine Glucose (UA) Urine Ketones Urine Blood Urine Nitrite Ur Leukocyte Esterase Urine RBC Urine WBC Ur Squamous Epith Cells Calcium Oxalate Crystal Urine Bacteria Hyaline Casts Granular Casts Urine Opiates Screen Urine Fentanyl Screen Ur Barbiturates Screen Ur Phencyclidine Scrn Ur Amphetamines Screen U Benzodiazepines Scrn Urine Cocaine Screen U Marijuana (THC) Screen Ethyl Alcohol COVID-19 (ZIYAD) COVID-19 Clin Com Imaging Radiologist's Impressions: Impressions Chest X-Ray 09/12/21 21:42 IMPRESSION: 1. Hypoinflated lungs with probable mild left basilar atelectasis. Small volume aspiration or early pneumonia could give a similar appearance. Cervical Spine CT 09/12/21 21:47 IMPRESSION: 1. No acute intracranial abnormality. 2. No traumatic subluxation or acute cervical spine fracture. Head CT 09/12/21 21:47 IMPRESSION: 1. No acute intracranial abnormality. 2. No traumatic subluxation or acute cervical spine fracture. Assessment and Plan (1) Acute respiratory failure with hypoxia: Status: Acute (2) Bradycardia: Status: Acute (3) Lactic acidosis: Status: Acute (4) Hypotension: Status: Acute (5) Generalized seizure: Status: Acute (6) Substance abuse: Status: Acute Plan This is a 56-year-old male with past medical history of polysubstance abuse presents to the hospital after witnessed tonic clonic seizure develops hypertension, bradycardia and hypoxia once in the ED # acute hypoxic respiratory failure - the secondary to aspiration pneumonia/pneumonitis - is no leukocytosis, afebrile - will treat with Unasyn - oxygen as needed - follow cultures - monitor respiratory status # hypotension - likely secondary to for said use and less likely to be secondary to sepsis/infection - treated with total of 3 L of fluid with improvement in his blood pressure - monitor BP # bradycardia - likely secondary to Versed - sinus bradycardia on EKG - has symptoms of dizziness - will admit to telemetry - monitor, does not resolve, consider cardiology consult # lactic acidosis - acute seizure - IV fluids - trend # tonic clonic seizure - secondary to IV drug use as well as poor compliance - patient denies having history of seizures although he has Keppra as his home medication - continue Keppra # polysubstance abuse - consider care team consult if patient starts withdrawing DVT prophylaxis: Lovenox Given his hypoxia and requirement of oxygen patient will require minimum 2 night hospital stay for further management and monitoring Quality Stroke Does the patient have a stroke diagnosis?: No VTE Prior VTE?: No VTE Risk Level:: Medical - moderate - high VTE Device Contraindication: Treatment Not Indicated VTE Drug Contraindication: N/A - Med Ordered
[2021-09-13 06:58] LABS: MANUAL DIFF FLAG NO
[2021-09-13 07:02] LABS: Basophils Percent Auto 0.6 % (0-2); Eosinophils Absolute Auto 0.1 X10*3/uL (0.0-0.4); Eosinophils Percent Auto 1.1 % (0-4); Hemoglobin 12.2 g/dl (14.0-18.0); Imm Gran Abs Auto 0.01 X10*3/uL (0.00-0.03); Imm Gran Pct Auto 0.2 % (0.0-0.4); Lymphocytes Absolute Auto 2.6 X10*3/uL (1.2-4.9); Mean Corpuscular Hemoglobin 32.6 pg (27.0-33.0); Mean Corpuscular Volume 98.9 fL (80.0-98.0); Mean Platelet Volume 12.4 fL (9.4-12.4); Monocytes Absolute Auto 0.6 X10*3/uL (0.1-1.2); Monocytes Percent Auto 9.7 % (2-11); Neutrophils Absolute Auto 3.3 x10*3/uL (2.0-8.3); Neutrophils Percent Auto 49.4 % (45-73); Platelet Count 104 X10*3/uL (160-400); Red Blood Count 3.74 X10*6/uL (4.60-5.80); Red Cell Distribution Width 13.9 % (11.0-16.0); White Blood Count 6.6 X10*3/uL (4.8-10.8)
[2021-09-13] MEDS: Ampicillin Sodium/Sulbactam Na 3 GM in 0.9 % Sodium Chloride 100 ML IV ×3 (07:16→20:53)
[2021-09-13] MEDS: Enoxaparin Sodium 40 MG/0.4 ML SYRINGE SUBCUT (07:16)
[2021-09-13 07:27] LABS: Anion Gap 9 (12-20); Blood Urea Nitrogen 19 mg/dL (9-16); Calcium 7.9 mg/dL (8.4-10.2); Carbon Dioxide 25 mmol/L (22-29); Chloride 112 mmol/L (96-108); Estimated Glomerular Filt Rate > 60; Glucose Random 111 mg/dL (60-115); Potassium 4.1 mmol/L (3.3-5.1); Sodium 142 mmol/L (135-145)
--- NOTE | 2021-09-13 08:23 | PHA.MEDREC ---
Pharmacy Consult ? Medication Reconciliation Pharmacy has completed the medication reconciliation. Pt poor historian, seems to be very nonadherent. When I asked him about his home medications all he asked me for were pain medications. Tried to clarify that I wanted to know what he takes at home but pt states I don't know. Eventually pt stated that he uses [facility] at that he takes medications for sleep, only able to name trazodone. Most medications in recent claim history for August 2021 are prescribed for use at bedtime, so I entered them as maintenance meds.
[2021-09-13 09:46] LABS: Thyroid Stimulating Hormone 0.67 uIU/mL (0.32-4.0)
--- NOTE | 2021-09-13 10:01 | MHC.RECOVRN ---
This health underwriter checked in with pt for SUDE. Pt alert and oriented, eating breakfast. Pt states IN use of one bag of heroin and that's the last thing pt remembers. Pt states occasional use of heroin,IN, once per month. Pt states last use of heroin was 6 months ago. Pt states does not use any other substances. Pt states trigger for use includes depression/sadness. Pt states has a therapist at [facility]. Pt states has overdosed in the past, 4 times. Pt could not recall when last overdose was, but similar in that pt snorted one bag heroin and had overdose and received Narcan. Harm reduction reviewed, Narcan training and opiate overdose prevention provided. This health underwriter offered recovery resources, pt states not interested at this time due to only using occasionally. Opportunity for questions. Pt verbalized understanding.
--- NOTE | 2021-09-13 10:21 | PM.NEUROCN ---
History of Present Illness Data of Consult Service Date: 09/13/21 Primary Care Provider: None Physician HPI Reason for consult: Seizure 56 years old man with polydrug abuse and noncompliance to medicines. He said that he did not follow with any primary care or any doctor for seizures stating that he was not happy with his primary care. He was brought to hospital after he was noted to be seizing. He said that he was using crack cocaine every few months. His tox screen was positive for multiple drugs including cocaine. Review of Systems Review of Systems: Regular history of drug abuse PMFSH Past Medical History Medical History (Updated 09/13/21 @ 06:32 by Sudha Escobedo MD) Polysubstance abuse Family History Family History (Updated 09/13/21 @ 06:33 by Sudha Escobedo MD) Other No family history of coronary artery disease Surgical History Surgical History (Updated 09/13/21 @ 06:33 by Sudha Escobedo MD) No pertinent past surgical history Social History Social History (Updated 09/13/21 @ 06:33 by Sudha Escobedo MD) Alcohol intake: current Patient Tobacco Use Status: Current everyday Tobacco user Tobacco use type: Cigarette Cigarette Packs Per Day: 0.5 Use of substances other than those prescribed or required for medical reasons: Yes Substance Use Type: Crack/Cocaine and Marijuana Advance Directives: No Advance Directives Information Provided: No Meds Allergies Allergy/AdvReac Type Severity Reaction Status Date / Time No Known Allergies Allergy Verified 09/13/21 02:52 Active Medications: Current Medications Acetaminophen (Acetaminophen 325 Mg Tablet) 650 mg PO Q6H PRN PRN Reason: Pain, Mild (Pain Scale 1-3) Docusate Sodium (Docusate Sodium 100 Mg Capsule) 100 mg PO DAILY PRN PRN Reason: Constipation Enoxaparin Sodium (Enoxaparin Sodium 40 Mg/0.4 Ml Syringe) 40 mg SUBCUT Q24H NAYELY Last Admin: 09/13/21 07:16 Dose: 40 mg Ampicillin Sodium/Sulbactam (Sodium 3 gm/ Sodium Chloride) 100 mls @ 200 mls/hr IV Q6H NAYELY Last Admin: 09/13/21 07:16 Dose: 200 mls/hr Midazolam HCl (Midazolam Hcl/Pf 2 Mg/2 Ml Vial) 10 mg IM ONCE PRN PRN Reason: Seizures Ondansetron HCl (Ondansetron Hcl 4 Mg/2 Ml Vial) 4 mg IVPUSH Q8H PRN PRN Reason: Nausea and Vomiting Sodium Chloride (0.9 % Sodium Chloride Flush 3 Ml Syringe) [facility] Medications Medication Instructions Recorded Confirmed Last Taken Type aripiprazole 20 mg tablet 1 tab PO BEDTIME 09/13/21 09/13/21 Unknown History clonazepam 1 mg tablet 1 tab PO BID PRN Anxiety 09/13/21 09/13/21 Unknown History clonidine HCl 0.2 mg tablet 1 tab PO BID PRN Anxiety 09/13/21 09/13/21 Unknown History duloxetine 60 mg capsule,delayed 2 cap PO BEDTIME 09/13/21 09/13/21 Unknown History release hydroxyzine HCl 25 mg tablet 1 - 2 tab PO BID PRN Anxiety 09/13/21 09/13/21 Unknown History melatonin 5 mg capsule 1 cap PO BEDTIME PRN Sleep 09/13/21 09/13/21 Unknown History mirtazapine 15 mg tablet 1 tab PO BEDTIME 09/13/21 09/13/21 Unknown History nicotine 21 mg/24 hr daily 1 patch topical DAILY 09/13/21 09/13/21 Unknown History transdermal patch trazodone 150 mg tablet 2 tab PO BEDTIME 09/13/21 09/13/21 Unknown History Physical Exam Vital Signs: Vital Signs: Last Vital Signs Temp 98.3 F 09/13/21 04:23 Pulse 42 L 09/13/21 06:10 Resp 13 09/13/21 06:10 BP 107/54 L 09/13/21 06:10 Pulse Ox 96 09/13/21 06:10 O2 Del Method 09/13/21 06:10 O2 Flow Rate 3 09/13/21 06:10 Oxygen Flow Rate 15 09/12/21 20:36 BMI result Body Mass Index 24.4 Neuro: Other: He is alert and awake with normal spontaneity of speech fluency comprehension and affect. Face is symmetrical. Visual quigley are full. There is no focal weakness. Deep tendon reflexes are trace to absent with flexor plantars. Results Labs CBC & Chem 7: 09/13/21 06:40 09/13/21 06:40 Labs: Short CBC 09/12/21 09/13/21 Range/Units 20:50 06:40 WBC 6.0 6.6 (4.8-10.8) X10*3/uL Hgb 14.0 12.2 L (14.0-18.0) g/dl Hct 42.3 37.0 L (42.0-52.0) % Plt Count 114 L 104 L (160-400) X10*3/uL BMP 09/12/21 09/13/21 20:50 06:40 Sodium 143 142 Potassium 3.9 4.1 Chloride 107 112 H Carbon Dioxide 20 L 25 BUN 25 H 19 H Creatinine 1.25 0.79 Calcium 8.4 7.9 L Cardiac Enzymes 09/12/21 09/12/21 Range/Units 20:50 20:50 Total Creatine Kinase 163 Cancelled (38-174) U/L Liver Function 09/12/21 Range/Units 20:50 Total Bilirubin 0.2 (0.0-1.0) mg/dL Direct Bilirubin < 0.2 (0.0-0.5) mg/dL AST 22 (5-37) U/L ALT 17 (0-40) U/L Alkaline Phosphatase 67 (39-117) U/L Albumin 4.0 (3.5-5.0) g/dL Urine 09/12/21 Range/Units 23:55 Urine Color DK YELLOW Urine Appearance HAZY Urine pH 6.0 (5.0-8.0) Ur Specific [place] >= 1.030 H (1.005-1.025) Urine Protein 2+ H (NEG-TRACE) MG/DL Urine Glucose (UA) NEG (NEG) MG/DL noncontrast head CT revealed are right anterior temporal arachnoid cyst but otherwise no significant abnormality. Assessment and Plan (1) Generalized seizure: Status: Acute 56 years old man with polydrug abuse including cocaine abuse was noted to have a generalized seizure was brought to emergency room. He continued to use drugs, which would put him continuously at risk for seizures. He has a small right anterior temporal arachnoid cyst that usually is asymptomatic but in rare situation can result in seizures. My recommendation is to continue Keppra 500 mg twice a day and refer him for detox program, if he has not done before. He should be informed that he should not drive avoid systemic alone or sitting in a soaking tub alone or any activity that could put his life in danger if he would have a seizure. Procedures Date of Service Date of Service: 09/13/21
[2021-09-13] MEDS: 0.9 % Sodium Chloride Flush 3 ML SYRINGE IVFLUSH ×2 (11:00→15:01)
--- NOTE | 2021-09-13 11:00 | P.EN_ITS ---
Event Note Date of Service: 09/13/21 Event Note: patient already seen by hospitalist service earlier, seen and examined again. seems more alert oriented and has some cough. Denies any new complaint of chest pain or shortness of breath or abdominal pain or fever or chills or nausea or vomiting Denies any weakness or numbness. physical exam: unchanged from h&p. assessment and plan:coordinated in h&p note in addition: acute hypoxic respiratory failure and sepsis possible sec to aspiration pneumonia Continue antibiotics, hydration, oxygen support, blood culture pending.. Bradycardia: Thought to be related to Versed.tsh levels , moniter ontele Hold verced. lactic acidosis seem to resolved with hydration. Possible seizure episode: possible related to drug use versus ? seizure - patient denies any hx of seizure neuro recomended start guille
--- NOTE | 2021-09-13 11:02 | PC.NURSE ---
Pt resting in bed sleeping. VSS at this time.
[2021-09-13] MEDS: levETIRAcetam 500 MG TABLET PO ×2 (12:23→20:53)
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
--- NOTE | 2021-09-13 14:39 | PC.NURSE ---
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 Per GI TECHNICIAN pt not SI/HI at this time and does not need a sitter. Pt denies SI and HI to this RN as well. Plan to re-start psych medications.
[2021-09-13] MEDS: Lidocaine 4 % Patch ADH..PATCH 1 PATCH TRANSDERMA (15:04)
--- NOTE | 2021-09-13 20:11 | PC.NURSE ---
patient taken to unit now, attempting to call unit and give report
[2021-09-13] MEDS: Lurasidone HCl 20 MG TABLET 60 MG PO (20:53)
[2021-09-13] MEDS: clonazePAM 0.5 MG TABLET PO (20:53)
[2021-09-13] MEDS: Melatonin 3 MG TABLET 6 MG PO (20:53)
[2021-09-13] MEDS: Mirtazapine 15 MG TABLET PO (20:53)
--- NOTE | 2021-09-14 | ECG_ITS ---
Test Reason : chest pain Blood Pressure : / mmHG Vent. Rate : 051 BPM Atrial Rate : 051 BPM P-R Int : 104 ms QRS Dur : 086 ms QT Int : 442 ms P-R-T Axes : -47 068 055 degrees QTc Int : 407 ms Unusual P axis, possible ectopic atrial bradycardia Abnormal ECG When compared with ECG of 13-SEP-2021 01:48, Ectopic atrial rhythm has replaced Sinus rhythm Referred By: Sudha Escobedo Electronically Signed By:NANO HAGEN MD
[2021-09-14] MEDS: Ampicillin Sodium/Sulbactam Na 3 GM in 0.9 % Sodium Chloride 100 ML IV ×2 (00:55→06:29)
[2021-09-14] MEDS: 0.9 % Sodium Chloride Flush 3 ML SYRINGE IVFLUSH ×2 (00:55→09:55)
[2021-09-14 02:00] VITALS: BP 122/68; PULSE 60
[2021-09-14] MEDS: Nitroglycerin 0.4 MG TAB.SUBL SUBLINGUAL ×2 (02:00→02:32)
[2021-09-14 02:07] VITALS: BP 114/77; PULSE 58; RESP 16; TEMP 36.6; O2SAT 94
[2021-09-14 02:32] VITALS: BP 102/60; PULSE 52
[2021-09-14 03:23] LABS: Troponin-I High Sensitivity 26.7 ng/L (<3.5-35.0)
--- NOTE | 2021-09-14 04:12 | PC.NURSE ---
0200 pt c/o chest pain 08/23 mid chest tightness.pain reducible. notified stat ekg and troponin ordered.pt medicated with nitro SL x2 with complete relief of pain.troponin 26.7
[2021-09-14] MEDS: Enoxaparin Sodium 40 MG/0.4 ML SYRINGE SUBCUT (06:29)
[2021-09-14] MEDS: Acetaminophen 325 MG TABLET 650 MG PO (06:31)
[2021-09-14 07:51] VITALS: BP 132/78; PULSE 52; RESP 12; TEMP 36.6; O2SAT 100
--- NOTE | 2021-09-14 09:07 | MHC.CM.PN ---
CM met with Patient at bedside and addressed SMITH with him, providing him with the original and placing a copy on the chart. Patient rents a room and required no services nor DME [employer]. Home no services vs Care Team Intervention is the goal and CM has initiated and will follow for dc planning. Patient has received NO covid vax and his PCP is Dr. Anival Jaimes.
[2021-09-14] MEDS: Lidocaine 4 % Patch ADH..PATCH 1 PATCH TRANSDERMA (09:55)
[2021-09-14] MEDS: DULoxetine HCl 30 MG CAPSULE.DR 90 MG PO (09:55)
[2021-09-14] MEDS: clonazePAM 0.5 MG TABLET PO (09:55)
[2021-09-14] MEDS: levETIRAcetam 500 MG TABLET PO (09:55)
[2021-09-14] MEDS: Amoxicillin/Potassium Clav 875 MG TABLET PO (11:26)
--- NOTE | 2021-09-14 11:29 | MHC.CM.PN ---
Per ROUNDS discussion, Patient will be medically cleared for dc to home today, self care. CM has informed RN that Patient will be taken home by [facility] Shuttle and Patient needs to be downstairs by 2:10 PM today.
--- NOTE | 2021-09-14 11:53 | PM.DS ---
DS: Providers Provider Date of Service: 09/14/21 Date of admission: 09/13/21 02:18 Date of discharge: 09/14/21 Primary care physician: None Physician Consults: 09/13/21 01:30 Consult to Care Team Stat Comment: Reason for consultation: SUDE 09/13/21 02:18 Consult to Neurology Routine Consulting Provider: [facility] Reason for consultation: seizure Has provider been notified: No 09/13/21 11:11 Consult to Care Team Routine Comment: Reason for consultation: seizure ,polysubstance use Consult to Psychiatry Routine Consulting Provider: Psych Covering Reason for consultation: seizure , on multiple psych drugs Has provider been notified: No 09/13/21 13:40 Addiction Medicine Stat Consulting Provider: Ragini Rodas Reason for consultation: methadone start DS: Diagnosis Discharge Diagnosis (1) Generalized seizure: Status: Acute DS: Summary Hospital Course Hospital Course: 56-year-old male with a past medical history of polysubstance abuse, and history of seizure noncompliant with medications presents to the hospital after witnessed seizure on the street.? Patient is alert, oriented, reports that he usually does not use heroin, and used heroin today, and immediately after became very ill, and had multiple episodes of seizure.? Patient received 4 mg of Versed by EMS, on arrival to the ED he also received 2 injections of Narcan, he has now become bradycardic, and has developed hypoxia.? Patient reports dizziness, but no headache. denies having any chest pain, no cough, no shortness of breath, no abdominal pain, no diarrhea or constipation.? No urinary symptoms and no lower extremity edema On arrival to the ED patient was found to have a heart rate initially in the 90s, blood pressure 120/80, but then his blood pressure dropped to 80s over 50s, with a heart rate in the 40s.? Patient was also noted to be hypoxic while sleeping dropping to the 80s. Patient received 3 L of bolus fluid with slight improvement his BP Labs are significant for WBC count of 6.0, hemoglobin 4.32, platelet of 114, pH of 7.27, bicarb of 20, BUN of 25, creatinine of 1.25 with no previous for comparison lactic acid 5.9, UA negative, UDS positive for fentanyl, cocaine, and THC as well as benzo Chest x-ray shows hypoinflated lungs with probable mid left basilar atelectasis.? Small volume aspiration or early pneumonia could give a similar appearance Given the hypoxia, hypertension bradycardia patient will be admitted for further management. Hospital course: Patient was admitted to the hospital because of polysubstance use, seizure episode, possible aspiration pneumonia : patient was started on IV antibiotics, also given seizure medication, subsequently patient seems to be improved significantly. patient will be going home with p.o. antibiotics and also seen by Neurology and amended to add Keppra for seizure- patient was strongly advised to abstain from poly substance use, also patient was advised strongly not to drive or sitting in a soaking tub alone or any activity that could put his life in danger if he would have a seizure. Initially patient has bradycardia- which is improving- thought to be possibly related to were said use, patient is asymptomatic, TSH normal. Further management outpatient. in addition patient was seen by psych- does not suicidal ideation, so cleared by the psych.klonapin adjusted 0.5 mg by mouth bid as needed. addiction evaluatiion done -patient refused subaxone,add narcan by addiction . Above management discussed with the patient in detail length he understand and in agreement with the above plan, time spent 50 minutes and 50% time spent on counseling. Significant findings: As above. Procedures performed: None. Treatment and response: As above. Complications: None. Time Spent with Patient Time attestation: Total time spent providing and/or coordinating discharge services: Discharge coordination time: Greater than 30 minutes Quality: Safe Use of Opioids Does Pt have an Active Cancer Diagnosis on the Problem List?: No Quality: Stroke Does the patient have a stroke diagnosis?: No Physical Exam Vital Signs: Vital Signs: Last Vital Signs Temp 97.9 F 09/14/21 07:51 Pulse 52 09/14/21 07:51 Resp 12 09/14/21 07:51 BP 132/78 09/14/21 07:51 Pulse Ox 100 09/14/21 07:51 O2 Del Method 09/14/21 07:51 O2 Flow Rate 3 09/13/21 06:10 Oxygen Flow Rate 15 09/12/21 20:36 BMI result Body Mass Index 24.4 Appearance: Alert.? Oriented X3.? not in distress.? Eyes: Pupils equal, round and reactive to light.? Sclera nonicteric.? ENT: Pharynx normal.? Moist mucous membranes. cvs: rrr, [id number] , no murmur res: air entry seems to be improved, no rales or wheezin abd: no rebound or guarding ,nt, bs present. ext pulses present , no cyanosis . neuro: axo3 , nonfocal. DS: Data Data Completed and Pending Labs on day of discharge: Laboratory Results - last 24 hr 09/14/21 02:38 Troponin I High Sens 26.7 D Preliminary micro results at discharge 09/12/21 20:50 Blood Culture - Preliminary Blood - Venous No growth after 24 hours. 09/12/21 20:50 Blood Culture - Preliminary Blood - Venous No growth after 24 hours. Additional Comments Additional comments: CT/CT head/brain wo con IMPRESSION: ? 1. No acute intracranial abnormality. 2. No traumatic subluxation or acute cervical spine fracture. CT/CT cervical spine wo con IMPRESSION: ? 1. No acute intracranial abnormality. 2. No traumatic subluxation or acute cervical spine fracture. XR/XR chest 1V IMPRESSION: ? 1. Hypoinflated lungs with probable mild left basilar atelectasis. Small volume aspiration or early pneumonia could give a similar appearance. ? Discharge Plan Discharge Patient Disposition: Home, Self-Care Discharge Diagnosis: possible seizures , poly substance use ,aspiration pneumonia Referrals: Physician,None [Primary Care Provider] - 1 Week Roseanne Pineda MD [Physician] - 2 Weeks (follow up outpatient) Discharge Medications: New levetiracetam [Keppra] 500 mg tablet 500 mg PO BID Qty: 60 1RF amoxicillin-pot clavulanate 875-125 mg tablet 1 tab PO BID Qty: 12 0RF Continued clonidine HCl 0.2 mg tablet 1 tab PO BID PRN (Reason: Anxiety) trazodone 150 mg tablet 2 tab PO BEDTIME nicotine 21 mg/24 hr patch 24 hour 1 patch topical DAILY hydroxyzine HCl 25 mg tablet 1 - 2 tab PO BID PRN (Reason: Anxiety) mirtazapine 15 mg tablet 1 tab PO BEDTIME aripiprazole 20 mg tablet 1 tab PO BEDTIME duloxetine 60 mg capsule,delayed release(DR/EC) 2 cap PO BEDTIME melatonin 5 mg capsule 1 cap PO BEDTIME PRN (Reason: Sleep) Changed clonazepam 1 mg tablet 0.5 mg PO BID PRN (Reason: Anxiety) Qty: 1 0RF Rx Instructions: patient has medication at home Discharge Orders: Discharge Order (Routine); Ordered 09/14/21 Ordered By: Margie Self Diet: Advance to usual diet Activity on Discharge: As tolerated Stand Alone Forms: Patient Portal Discharge page Care Plan Goals: Patient was admitted to the hospital because of polysubstance use, seizure episode, possible aspiration pneumonia : patient was started on IV antibiotics, also given seizure medication, subsequently patient seems to be improved significantly. patient will be going home with p.o. antibiotics and also seen by Neurology and amended to add Keppra for seizure- patient was strongly advised to abstain from poly substance use, also patient was advised strongly not to drive or sitting in a soaking tub alone or any activity that could put his life in danger if he would have a seizure. in addition patient was seen by psych- does not suicidal ideation, so cleared by the psych.klonapin adjusted 0.5 mg by mouth bid as needed. addiction evaluatiion done -patient refused subaxone,add narcan by addiction . Health Concerns: as above. please repeat chest imaging studies in 3-4 weeks to see resolution of pneumonia, also follow-up with outpatient Neurology for further management of seizure. If patient condition worsen or any new symptoms including fevers or shortness of breath or any new symptoms: Patient is to go to nearest emergency room and get evaluated. Plan of Treatment: As above. Assessment: As above Patient Instructions: Polysubstance Abuse (ED), Generalized Tonic Clonic Seizures (ED)
--- NOTE | 2021-09-14 16:20 | MHC.RECOVRN ---
Briefly met with pt prior to dc after consult placed to Addiction Medicine for methadone start. Pt in bed, drowsy but arousable to voice. Pt reports using heroin, 1 bag once per week. Pt has no hx MOUD. Pt educated regarding methadone and when appropriate to initiate. Pt declines MOUD at this time. Provided with t/w contact information if needed. Discussed with Ragini Rodas APRN.
== END 2021-09-14 13:00 | disposition home or self-care (01) ==
LOC: HO.ED 09-13 02:04 → HO.EDOVER 09-13 02:24 → HO.S3 09-13 18:31
PROVIDERS: Admitting Provider Internal Medicine; Emergency Provider Emergency Medicine; PCP Internal Medicine; Visit Provider Internal Medicine
DX: R56.9 Unspecified convulsions (principal); F19.10 Other psychoactive substance abuse, uncomplicated; E87.2 Acidosis; R00.1 Bradycardia, unspecified; I95.9 Hypotension, unspecified; M54.2 Cervicalgia; R51.9 Headache, unspecified; R07.89 Other chest pain; F14.10 Cocaine abuse, uncomplicated; R06.02 Shortness of breath; F12.10 Cannabis abuse, uncomplicated; F17.210 Nicotine dependence, cigarettes, uncomplicated; Z20.822 Contact with and (suspected) exposure to COVID-19; Z71.6 Tobacco abuse counseling; Z71.51 Drug abuse counseling and surveillance of drug abuser; Z79.899 Other long term (current) drug therapy; Z91.14 Patient's other noncompliance with medication regimen; Z20.828 Contact with and (suspected) exposure to other viral communicable diseases
CPT/HCPCS: 36415; 70450; 71045; 72125; 80048; 80076; 80307; 81001; 82077; 82140; 82550; 82803; 82947; 83605; 83690; 83735; 83880; 84443; 84484; 85025; 85379; 85610; 87040; 87635; 93005; 96365; 96366; 96372; 96375; 99218; 99284; J0295; J1650; J1953; J2370

== ENCOUNTER 2021-10-31 11:14 | Emergency (ER) | payer MEDICAID, SELFPAY ==
[2021-10-31 11:21] VITALS: BP 124/76; PULSE 74; O2SAT 95
[2021-10-31 11:31] VITALS: BP 114/70; PULSE 62; RESP 16; TEMP 37.1; O2SAT 96; BMI 20.3
[2021-10-31 12:17] LABS: Basophils Percent Auto 0.5 % (0-2); Eosinophils Absolute Auto 0.1 X10*3/uL (0.0-0.4); Eosinophils Percent Auto 1.8 % (0-4); Hemoglobin 12.9 g/dl (14.0-18.0); Imm Gran Abs Auto 0.01 X10*3/uL (0.00-0.03); Imm Gran Pct Auto 0.2 % (0.0-0.4); Lymphocytes Absolute Auto 2.2 X10*3/uL (1.2-4.9); MANUAL DIFF FLAG NO; Mean Corpuscular HGB Conc 33.9 g/dl (31.0-36.0); Mean Corpuscular Hemoglobin 32.3 pg (27.0-33.0); Mean Corpuscular Volume 95.2 fL (80.0-98.0); Mean Platelet Volume 11.4 fL (9.4-12.4); Monocytes Absolute Auto 0.6 X10*3/uL (0.1-1.2); Monocytes Percent Auto 9.9 % (2-11); Neutrophils Absolute Auto 3.2 x10*3/uL (2.0-8.3); Neutrophils Percent Auto 52.6 % (45-73); Platelet Count 141 X10*3/uL (160-400); Red Blood Count 3.99 X10*6/uL (4.60-5.80); Red Cell Distribution Width 12.8 % (11.0-16.0); White Blood Count 6.1 X10*3/uL (4.8-10.8)
--- NOTE | 2021-10-31 12:25 | PC.NURSE ---
patient a/ox4 . currently on phone doing intake requesting detox for drugs /ETOH . labs have been done have been sent . patient aware of plan of care .
[2021-10-31 12:44] LABS: Ethanol < 10 mg/dL
[2021-10-31 12:49] LABS: Alanine Aminotransferase 21 U/L (0-40); Albumin Level 3.6 g/dL (3.5-5.0); Alkaline Phosphatase 70 U/L (39-117); Anion Gap 14 (12-20); Aspartate Amino Transferase 26 U/L (5-37); Bilirubin Total 0.2 mg/dL (0.0-1.0); Blood Urea Nitrogen 18 mg/dL (9-16); Calcium 9.1 mg/dL (8.4-10.2); Carbon Dioxide 27 mmol/L (22-29); Chloride 99 mmol/L (96-108); Creatinine Clr Calc Pharmacy 90.2; Estimated Glomerular Filt Rate > 60; Glucose Random 130 mg/dL (60-115); Lipase 63 U/L (8-78); Magnesium 1.7 mg/dL (1.6-2.6); Potassium 3.4 mmol/L (3.3-5.1); Sodium 137 mmol/L (135-145); Total Protein 6.1 g/dL (6.5-8.0)
--- NOTE | 2021-10-31 13:01 | ED_ITS ---
HPI - Psych General Chief Complaint: ETOH/Substance Use Stated Complaint: SI,DETOX,SUBTANCE ABUSE Time Seen by Provider: 10/31/21 11:36 Source: patient and EMS Mode of arrival: EMS Limitations: no limitations History of Present Illness HPI Narrative: 56-year-old male with a past medical history of polysubstance abuse, history of seizures noncompliant with medications presenting to the ER with complaints of increased depression due to his substance abuse and currently homeless is requesting detox. Reports that he uses approximately 150 dollars of crack daily. He also uses approximately 15-20 bags of heroin/cocaine daily. He also smokes marijuana. He denies any alcohol usage. He denies any SI/HI/auditory visualizations thoughts of self-injury. He denies any fevers, chills, nausea/vomiting, dizziness, headaches, neck pain/stiffness, sore throat, nasal congestion/cough, abdominal pain, diarrhea, abnormal penile discharge, dysuria, rashes, recent falls or trauma or any other symptoms complaints or concerns at this time. MD complaint: feels depressed, anxiety and substance abuse Onset (ago): year(s) Duration: constant History of same: Yes Relieving factors: none Exacerbating factors: drug use Context: recent drug abuse and significant life stressor (Homeless) Associated psychiatric symptoms: depression Associated symptoms: denies other symptoms Treatments prior to arrival: none Related Data Home Medications Medication Instructions Recorded Confirmed aripiprazole 20 mg tablet 1 tab PO BEDTIME 09/13/21 09/13/21 clonidine HCl 0.2 mg tablet 1 tab PO BID PRN Anxiety 09/13/21 09/13/21 duloxetine 60 mg capsule,delayed 2 cap PO BEDTIME 09/13/21 09/13/21 release hydroxyzine HCl 25 mg tablet 1 - 2 tab PO BID PRN Anxiety 09/13/21 09/13/21 melatonin 5 mg capsule 1 cap PO BEDTIME PRN Sleep 09/13/21 09/13/21 mirtazapine 15 mg tablet 1 tab PO BEDTIME 09/13/21 09/13/21 nicotine 21 mg/24 hr daily 1 patch topical DAILY 09/13/21 09/13/21 transdermal patch trazodone 150 mg tablet 2 tab PO BEDTIME 09/13/21 09/13/21 Previous Rx's Medication Instructions Recorded levetiracetam 500 mg tablet 500 mg PO BID #60 tabs 09/13/21 (Rejira) amoxicillin 875 mg-potassium 1 tab PO BID #12 tabs 09/14/21 clavulanate 125 mg tablet clonazepam 1 mg tablet 0.5 mg PO BID PRN Anxiety #1 tab 09/14/21 Allergies Allergy/AdvReac Type Severity Reaction Status Date / Time No Known Allergies Allergy Verified 09/13/21 02:52 Review of Systems Review of Systems: Constitutional : No Fever, No Chills ENT/Mouth : No Ear Pain, No Nasal Congestion, No sore throat Eyes: No Eye Pain, No Swelling, No Redness Cardiovascular : No Chest Pain, No SOB Respiratory : No Cough, No Sputum, No Dyspnea Gastrointestinal : No ingestions, No Nausea, No Vomiting, No Diarrhea, No Hematochezia, No Melena Genitourinary : No Dysuria, No Urinary Frequency, No Hematuria Musculoskeletal : No Myalgias Skin : No Skin Lesions, No rash Neuro : No Weakness, No Numbness, No Paresthesias, No Dizziness, No Headache Psych : + Anxiety, + Depression, No SI, No thoughts of self injury, No HI, No AVH, Heme/Lymph: No Lymphadenopathy Endocrine : No Polyuria, No Polydipsia Yes all other systems are reviewed and are negative [facility] Past Medical History Attestation statement: The following information was validated with the patient. Source: old records reviewed and nursing notes reviewed Medical History Polysubstance abuse Surgical History No pertinent past surgical history Family History Family History Other No family history of coronary artery disease Social History Social History Alcohol intake: current Patient Tobacco Use Status: Current everyday Tobacco user Tobacco use type: Cigarette Cigarette Packs Per Day: 1 Cigarettes Per Day: 20.0 Second Hand Smoke Exposure: No Substance Use Type: Crack/Cocaine and Marijuana Advance Directives: No Advance Directives Information Provided: No service: No Current occupational status: disabled Physical Exam Vital Signs: Vital Signs: Last Vital Signs Temp 98.7 F 10/31/21 11:31 Pulse 62 10/31/21 11:31 Resp 16 10/31/21 11:31 BP 114/70 10/31/21 11:31 Pulse Ox 96 10/31/21 11:31 O2 Del Method 10/31/21 11:31 BMI result Body Mass Index 20.3 vital signs have been reviewed as normal and appeared to be correct. Blood pressure normal. Heart rate normal. Respiration rate normal. Temperature normal. Oxygen saturation normal. Appearance: Alert. Oriented X3. No acute distress. Head: Normal external exam. Normocephalic. Atraumatic. No Romano signs noted. No raccoon eyes noted Eyes: PERRLA. EOMI. Conjunctiva and sclera normal. Eyelids normal. ENT: EAC normal. TM's Normal. Pharynx normal. Uvula midline. Moist mucous membranes. No trismus noted. No drooling noted. No muffled voice noted. Neck: Normal inspection. Neck supple. FROM. No adenopathy. Thyroid Normal. No meningeal signs. No neck mass noted. CVS: Normal heart rate and rhythm. Heart sound normal. No murmurs noted. Pulses normal throughout. Respiratory: No respiratory distress. Painless inspiration. Breath sounds normal. No wheezes/rales/rhonchi noted. Chest nontender. No accessory muscle usage noted or decreased air movement noted. Abdomen: Soft and nontender. Bowel sounds normal in all 4 quadrants. No distention noted. No organomegaly noted. No visible injury noted. Back: No CVA tenderness. Full range of motion noted. Skin: Skin warm and dry. Normal skin color. Normal skin turgor. No rashes/lesions/lacerations noted. Extremities: No lower extremity edema. Extremities exhibit normal range of motion. Extremities nontender. Neuro: Oriented X 3. No motor deficit. No sensory deficit. Reflexes normal. CN's II-XII intact bilaterally? Psych: Appearance grossly normal, well-kept, mental status normal, speech and movement normal, speech clear, patient appears very sad and anxious along with depressed. Is cooperative. Normal thought process. Normal thought content. Normal good insight. Judgment good. Course Course Course Narrative: 11:50am - 56-year-old male with a past medical history of polysubstance abuse, history of seizures noncompliant with medications presenting to the ER with complaints of increased depression due to his substance abuse and currently homeless is requesting detox. Reports that he uses approximately 150 dollars of crack daily. He also uses approximately 15-20 bags of heroin/cocaine daily. He also smokes marijuana. He denies any alcohol usage. He denies any SI/HI/auditory visualizations thoughts of self-injury. Plan: Labs, UA, drugs of abuse screen, COVID swab and re-evaluate. Reevaluation(s) Reevaluation #1: - labs reviewed patient mild baseline anemia similar compared to prior with an H&H of 12.9/38.8. Low platelet count 144 which is similar and improved when compared to prior. BUN 18. Random glucose 130. Total protein 6.1. Otherwise all other labs are within normal limits. Patient negative for any EtOH. - therefore at this time patient is placed in Physician observation because the patient is more time to be evaluated by the care team for possible detox placement will re-evaluate. Time: 13:07 Reevaluation #2: - Care team for detox [facility] accepted at this time. Patient will be discharged at this time via [employer] for transportation instructed to return if any new or worsening symptoms. Patient understands agrees with this plan. Time: 14:06 [facility] - Psych Medical Records Attestation: I reviewed the patient's medical records. Lab Data Attestation: I reviewed the patient's lab results. Result diagrams: 10/31/21 12:12 10/31/21 12:12 Labs: Lab Results 10/31/21 10/31/21 10/31/21 Range/Units 12:12 12:12 12:12 WBC 6.1 (4.8-10.8) X10*3/uL RBC 3.99 L (4.60-5.80) X10*6/uL Hgb 12.9 L (14.0-18.0) g/dl Hct 38.0 L (42.0-52.0) % MCV 95.2 (80.0-98.0) fL MCH 32.3 (27.0-33.0) pg MCHC 33.9 (31.0-36.0) g/dl RDW 12.8 (11.0-16.0) % Plt Count 141 L D (160-400) X10*3/uL MPV 11.4 (9.4-12.4) fL Immature Gran % (Auto) 0.2 (0.0-0.4) % Neut % (Auto) 52.6 (45-73) % Lymph % (Auto) 35.0 (20-40) % Starke % (Auto) 9.9 (2-11) % Eos % (Auto) 1.8 (0-4) % Baso % (Auto) 0.5 (0-2) % Lymph # (Auto) 2.2 (1.2-4.9) X10*3/uL Starke # (Auto) 0.6 (0.1-1.2) X10*3/uL Eos # (Auto) 0.1 (0.0-0.4) X10*3/uL Baso # (Auto) 0.0 (0.0-0.2) X10*3/uL Abs Immat Gran (auto) 0.01 (0.00-0.03) X10*3/uL Absolute Neuts (auto) 3.2 (2.0-8.3) x10*3/uL Absolute Nucleated RBC 0.000 (0.0-0.012) X10*3/uL Nucleated RBC % (auto) 0.0 (0.0-0.2) /100WBC Sodium 137 (135-145) mmol/L Potassium 3.4 (3.3-5.1) mmol/L Chloride 99 (96-108) mmol/L Carbon Dioxide 27 (22-29) mmol/L Anion Gap 14 (12-20) BUN 18 H (9-16) mg/dL Creatinine 0.88 (0.5-1.4) mg/dL Estim Creat Clear Calc 90.2 Estimated GFR > 60 Random Glucose 130 H (60-115) mg/dL Calcium 9.1 D (8.4-10.2) mg/dL Magnesium 1.7 (1.6-2.6) mg/dL Total Bilirubin 0.2 (0.0-1.0) mg/dL AST 26 (5-37) U/L ALT 21 (0-40) U/L Alkaline Phosphatase 70 (39-117) U/L Total Protein 6.1 L (6.5-8.0) g/dL Albumin 3.6 (3.5-5.0) g/dL Lipase 63 (8-78) U/L Ethyl Alcohol < 10 mg/dL COVID-19 (ZIYAD) (Negative) COVID-19 Clin Com 10/31/21 Range/Units 13:42 WBC (4.8-10.8) X10*3/uL RBC (4.60-5.80) X10*6/uL Hgb (14.0-18.0) g/dl Hct (42.0-52.0) % MCV (80.0-98.0) fL MCH (27.0-33.0) pg MCHC (31.0-36.0) g/dl RDW (11.0-16.0) % Plt Count (160-400) X10*3/uL MPV (9.4-12.4) fL Immature Gran % (Auto) (0.0-0.4) % Neut % (Auto) (45-73) % Lymph % (Auto) (20-40) % Starke % (Auto) (2-11) % Eos % (Auto) (0-4) % Baso % (Auto) (0-2) % Lymph # (Auto) (1.2-4.9) X10*3/uL Starke # (Auto) (0.1-1.2) X10*3/uL Eos # (Auto) (0.0-0.4) X10*3/uL Baso # (Auto) (0.0-0.2) X10*3/uL Abs Immat Gran (auto) (0.00-0.03) X10*3/uL Absolute Neuts (auto) (2.0-8.3) x10*3/uL Absolute Nucleated RBC (0.0-0.012) X10*3/uL Nucleated RBC % (auto) (0.0-0.2) /100WBC Sodium (135-145) mmol/L Potassium (3.3-5.1) mmol/L Chloride (96-108) mmol/L Carbon Dioxide (22-29) mmol/L Anion Gap (12-20) BUN (9-16) mg/dL Creatinine (0.5-1.4) mg/dL Estim Creat Clear Calc Estimated GFR Random Glucose (60-115) mg/dL Calcium (8.4-10.2) mg/dL Magnesium (1.6-2.6) mg/dL Total Bilirubin (0.0-1.0) mg/dL AST (5-37) U/L ALT (0-40) U/L Alkaline Phosphatase (39-117) U/L Total Protein (6.5-8.0) g/dL Albumin (3.5-5.0) g/dL Lipase (8-78) U/L Ethyl Alcohol mg/dL COVID-19 (ZIYAD) Negative (Negative) COVID-19 Clin Com See Note Discharge Plan Discharge Clinical Impression: Substance abuse, Anxiety, Depression Patient Disposition: Home, Self-Care Instructions: Depression (ED), Polysubstance Abuse (ED), Anxiety (ED) Additional Instructions: Care team for detox [facility] Prescriptions: No Action levetiracetam [Keppra] 500 mg tablet 500 mg PO BID Qty: 60 1RF clonidine HCl 0.2 mg tablet 1 tab PO BID PRN (Reason: Anxiety) trazodone 150 mg tablet 2 tab PO BEDTIME nicotine 21 mg/24 hr patch 24 hour 1 patch topical DAILY hydroxyzine HCl 25 mg tablet 1 - 2 tab PO BID PRN (Reason: Anxiety) mirtazapine 15 mg tablet 1 tab PO BEDTIME aripiprazole 20 mg tablet 1 tab PO BEDTIME duloxetine 60 mg capsule,delayed release(DR/EC) 2 cap PO BEDTIME melatonin 5 mg capsule 1 cap PO BEDTIME PRN (Reason: Sleep) amoxicillin-pot clavulanate 875-125 mg tablet 1 tab PO BID Qty: 12 0RF clonazepam 1 mg tablet 0.5 mg PO BID PRN (Reason: Anxiety) Qty: 1 0RF Rx Instructions: patient has medication at home Referrals: [facility] [Primary Care Provider] - 2 days Print Language: Uzbek
[2021-10-31 14:03] LABS: COVID-19 Test Negative (Negative); IDNOW Serial# 55D5AD1C
--- NOTE | 2021-10-31 14:10 | MHC.RECOVSUP ---
Recovery Support note: Patient is a 56 year old Bulgarian speaking male who presented [place] [facility] [place]. Patient reports using cocaine and heroin daily and patient is interested in entering recovery. Patient has been to detox before and found it helpful. Patient completed intake with [facility] however there are no beds available today and it is uncertain if one will be open tomorrow. [facility] did not answer phone. Voicemail left. [facility] did not answer. [facility] has no beds today. Patient completed intake with [facility] and has been accepted. Patient is agreeable to going to [place] for treatment. Patient provided with contact information for Recovery Support Team and Care Team in the event that he needs assistance with transportation after treatment. Discussed case with patient's RN and ED provider.
--- NOTE | 2021-10-31 14:39 | PC.NURSE ---
patient a/o x4 . plan to d/c to [place] for detox for opiate withdrawal . Transportation has been arranged . Patient aware of plan of care .
== END 2021-10-31 14:42 | disposition home or self-care (01) ==
PROVIDERS: Physician Assistant Medical; Emergency Provider Internal Medicine
DX: F19.10 Other psychoactive substance abuse, uncomplicated (principal); F41.9 Anxiety disorder, unspecified; F32.A Depression, unspecified; Z20.822 Contact with and (suspected) exposure to COVID-19; F17.210 Nicotine dependence, cigarettes, uncomplicated; F43.10 Post-traumatic stress disorder, unspecified; R56.9 Unspecified convulsions; Z91.14 Patient's other noncompliance with medication regimen
CPT/HCPCS: 36415; 80053; 82077; 83690; 83735; 85025; 87635; 99283

== ENCOUNTER 2022-03-18 03:39 | Emergency (ER) | payer MEDICAID, SELFPAY ==
[2022-03-18 04:00] VITALS: BP 124/76; BP 126/55; PULSE 100; PULSE 93; RESP 20; TEMP 37.1; O2SAT 91; O2SAT 95; BMI 25.0
--- NOTE | 2022-03-18 04:30 | PC.NURSE ---
pt reassessed, pt reported abd pain and headache
--- NOTE | 2022-03-18 05:52 | ED.OVERDOSE ---
HPI - Overdose General Chief Complaint: Overdose Stated Complaint: OD Time Seen by Provider: 03/18/22 05:51 Source: patient Mode of arrival: EMS Limitations: no limitations History of Present Illness HPI Narrative: 57-year-old male who presents emergency department for evaluation of an unintentional opiate overdose. Patient told me that he smokes crack cocaine daily. He states that he infrequently snorts heroin. He states that he snorted 1 bag of heroin and then does not remember what happened. The patient was found unresponsive and was given a total of 12 mg of intranasal Narcan by 1st responders. At the time of presentation and my evaluation he is awake and alert and able to give a history. He states that he is willing to stay in the emergency department for a SUDE evaluation and evaluation for possible detox. He states that he has overdosed at least 5 times on opiates. States that he was in his usual state of health prior to the overdose. He denied being suicidal or homicidal. Related Data Home Medications Medication Instructions Recorded Confirmed aripiprazole 20 mg tablet 1 tab PO BEDTIME 09/13/21 09/13/21 clonidine HCl 0.2 mg tablet 1 tab PO BID PRN Anxiety 09/13/21 09/13/21 duloxetine 60 mg capsule,delayed 2 cap PO BEDTIME 09/13/21 09/13/21 release hydroxyzine HCl 25 mg tablet 1 - 2 tab PO BID PRN Anxiety 09/13/21 09/13/21 melatonin 5 mg capsule 1 cap PO BEDTIME PRN Sleep 09/13/21 09/13/21 mirtazapine 15 mg tablet 1 tab PO BEDTIME 09/13/21 09/13/21 nicotine 21 mg/24 hr daily 1 patch topical DAILY 09/13/21 09/13/21 transdermal patch trazodone 150 mg tablet 2 tab PO BEDTIME 09/13/21 09/13/21 Previous Rx's Medication Instructions Recorded naloxone 8 mg/actuation nasal spray 8 mg (0.1 mL) intranasal Q2M PRN 12/30/20 opioid overdose #1 ea levetiracetam 500 mg tablet 500 mg PO BID #60 tabs 09/13/21 (Keppra) amoxicillin 875 mg-potassium 1 tab PO BID #12 tabs 09/14/21 clavulanate 125 mg tablet clonazepam 1 mg tablet 0.5 mg PO BID PRN Anxiety #1 tab 09/14/21 Allergies Allergy/AdvReac Type Severity Reaction Status Date / Time aspirin [ASA] Allergy Unknown ITCHING Verified 12/01/21 12:39 Review of Systems Review of Systems: Yes all other systems are reviewed and are negative [facility] Past Medical History [facility] Narrative: Past medical history: Reviewed below, seizure disorder, cocaine use disorder, hypotension, lactic acidosis, bradycardia, PTSD, opiate use disorder, major depression with recurrent episodes. Social history: He does smoke cigarettes, denies alcohol use, he states that he smokes crack cocaine daily and occasionally uses intranasal opiates. Medical History Heroin abuse Surgical History (Updated 12/01/21 @ 12:39 by Jonathan Cheatham) No pertinent past surgical history Family History Family History (System 12/01/21 @ 12:39 by Jonathan Cheatham) Other No family history of coronary artery disease Social History Social History (System 12/01/21 @ 12:39 by Jonathan Cheatham) Alcohol intake: current Alcohol intake frequency: 0-2 drinks per day Patient Tobacco Use Status: Current everyday Tobacco user Tobacco use type: Cigarette Cigarette Packs Per Day: 1 Cigarettes Per Day: 20.0 Second Hand Smoke Exposure: No Substance Use Type: Crack/Cocaine, Heroin and Marijuana Advance Directives: No service: No Current occupational status: disabled Physical Exam Vital Signs: Vital Signs: Last Vital Signs Temp 98.7 F 03/18/22 04:00 Pulse 93 03/18/22 04:00 Resp 20 03/18/22 04:00 BP 126/55 L 03/18/22 04:00 Pulse Ox 91 L 03/18/22 04:00 O2 Del Method 03/18/22 04:00 BMI result Body Mass Index 25.0 Const: General: cooperative and no acute distress Orientation/consciousness: oriented to person and oriented to place Limitations: no limitations HEENT: Head: Yes normal to inspection, Yes normocephalic and Yes atraumatic Ears: external ears normal General nose exam: Normal external nose present Face and sinus: Yes normal facial exam Mouth: Normal oral and palatal mucosa present Throat: Yes posterior oropharynx normal Eyes: General: appearance normal, both eyes and all related structures Pupils: Equal, round and reactive pupils present Neck: Neck: Yes normal visual inspection, Yes no lymphadenopathy, Yes trachea midline and Yes supple Chest: Chest palpation & inspection: normal inspection of the chest and normal palpation of entire chest wall Resp: Effort & Inspection: normal respiratory effort and able to speak in complete sentences Auscultation: clear to auscultation bilaterally Cardio: Rate: regular rate Rhythm: regular rhythm Heart sounds: S1 normal heart sound present, S2 normal heart sound present and no murmurs GI: Inspection: Yes normal to inspection Palpation (GI): Soft to palpation, nontender and no guarding Auscultation: normal bowel sounds : General: Yes no CVA tenderness Back/Spine/Pelvis: Back: no CVA tenderness Skin: General skin exam: no rashes or lesions noted Neuro: General: oriented to person and oriented to place Cranial nerves: Yes CN's II-XII intact bilaterally and Yes Equal, round and reactive pupils present Cognition (Neuro): normal cognition Motor exam (neuro): 5/5 motor strength present throughout Extrem: General: Yes normal to inspection Psych: Appearance: grossly normal Speech and movement: Normal speech and movement present Affect: normal affect Attitude: cooperative Thought process: Normal thought process present Thought content: Normal thought content present Medical Decision Making Medical Decision Making MDM Narrative: 57-year-old male who presents emergency department for evaluation unintentional opiate overdose which required 12 mg of intranasal Narcan to revive him in the field. The patient was awake and alert and able to give a good history the time my evaluation. The patient has been observed in the emergency department for at least 3 hours and he has remained awake and alert therefore I believe that he is medically cleared for SUDE evaluation and evaluation for detox/recovery programs. I did order a CBC, CMP, urine drug screen, alcohol level, COVID-19, RSV and influenza test on the patient. Patient's medications will be reconciled. Care team consult will be obtained. 0654: At the end of my shift, the patient's care was turned over to my colleague, Dr. Torin Samayoa. Differential Diagnosis Differential diagnosis includes was not limited to unintentional opiate overdose, intentional opiate overdose, electrolyte abnormality Discharge Plan Discharge Clinical Impression: Accidental overdose of non-opiate analgesics, Cocaine use disorder, Opiate abuse, episodic Patient Disposition: Still a Patient Prescriptions: No Action naloxone 8 mg/actuation spray,non-aerosol 8 mg intranasal Q2M PRN (Reason: opioid overdose) Qty: 1 0RF Rx Instructions: spray 1 dose into ONE nostril; alternate nostrils w each dose until help arrives levetiracetam [Keppra] 500 mg tablet 500 mg PO BID Qty: 60 1RF clonidine HCl 0.2 mg tablet 1 tab PO BID PRN (Reason: Anxiety) trazodone 150 mg tablet 2 tab PO BEDTIME nicotine 21 mg/24 hr patch 24 hour 1 patch topical DAILY hydroxyzine HCl 25 mg tablet 1 - 2 tab PO BID PRN (Reason: Anxiety) mirtazapine 15 mg tablet 1 tab PO BEDTIME aripiprazole 20 mg tablet 1 tab PO BEDTIME duloxetine 60 mg capsule,delayed release(DR/EC) 2 cap PO BEDTIME melatonin 5 mg capsule 1 cap PO BEDTIME PRN (Reason: Sleep) amoxicillin-pot clavulanate 875-125 mg tablet 1 tab PO BID Qty: 12 0RF clonazepam 1 mg tablet 0.5 mg PO BID PRN (Reason: Anxiety) Qty: 1 0RF Rx Instructions: patient has medication at home
[2022-03-18] MEDS: Acetaminophen 325 MG TABLET 650 MG PO (08:01)
[2022-03-18 08:15] VITALS: BP 123/77; PULSE 87; RESP 14; TEMP 36.9; O2SAT 90
[2022-03-18 08:16] LABS: Basophils Percent Auto 0.3 % (0-2); Eosinophils Percent Auto 0.3 % (0-4); Hematocrit 43.7 % (42.0-52.0); Hemoglobin 14.9 g/dl (14.0-18.0); Imm Gran Abs Auto 0.03 X10*3/uL (0.00-0.03); Imm Gran Pct Auto 0.3 % (0.0-0.4); Lymphocytes Absolute Auto 2.5 X10*3/uL (1.2-4.9); Lymphocytes Percent Auto 24.5 % (20-40); MANUAL DIFF FLAG NO; Mean Corpuscular HGB Conc 34.1 g/dl (31.0-36.0); Mean Corpuscular Hemoglobin 31.8 pg (27.0-33.0); Mean Corpuscular Volume 93.2 fL (80.0-98.0); Mean Platelet Volume 11.5 fL (9.4-12.4); Monocytes Absolute Auto 1.2 X10*3/uL (0.1-1.2); Monocytes Percent Auto 11.7 % (2-11); Neutrophils Absolute Auto 6.5 x10*3/uL (2.0-8.3); Neutrophils Percent Auto 62.9 % (45-73); Platelet Count 150 X10*3/uL (160-400); Red Blood Count 4.69 X10*6/uL (4.60-5.80); Red Cell Distribution Width 13.2 % (11.0-16.0); White Blood Count 10.3 X10*3/uL (4.8-10.8)
[2022-03-18 08:35] LABS: Alanine Aminotransferase 55 U/L (0-40); Albumin Level 4.1 g/dL (3.5-5.0); Alkaline Phosphatase 65 U/L (39-117); Anion Gap 14 (12-20); Aspartate Amino Transferase 172 U/L (5-37); Bilirubin Total 0.8 mg/dL (0.0-1.0); Blood Urea Nitrogen 28 mg/dL (9-16); Calcium 9.1 mg/dL (8.4-10.2); Carbon Dioxide 27 mmol/L (22-29); Chloride 102 mmol/L (96-108); Creatinine Clr Calc Pharmacy 80.2; Estimated Glomerular Filt Rate > 60; Ethanol < 10 mg/dL; Glucose Random 115 mg/dL (60-115); Potassium 4.1 mmol/L (3.3-5.1); Sodium 139 mmol/L (135-145); Total Protein 6.6 g/dL (6.5-8.0)
[2022-03-18 08:56] LABS: Influenza A PCR NEGATIVE (Negative); Influenza B PCR NEGATIVE (Negative); Resp Syncy Virus RNA Qual PCR NEGATIVE (Negative); SARS COV2 PCR INHOUSE NEGATIVE (Negative)
--- NOTE | 2022-03-18 08:58 | PHA.MEDREC ---
Pharmacy Consult ? Medication Reconciliation Pharmacy has completed the medication reconciliation. Pt poor historian, agreeable to most medications I listed. Noted he hasn't taken any of his prescriptions in a while
[2022-03-18 09:18] LABS: Amphetamine Screen Urine Not Detected (Not Detect); Barbiturates, Urine Not Detected (Not Detect); Benzodiazepines Screen Urine Not Detected (Not Detect); Cannabinoid Screen Urine Not Detected (Not Detect); Cocaine Screen Urine POSITIVE (Not Detect); Fentanyl, urine POSITIVE (Not Detect); Opiate Screen Urine Not Detected (Not Detect); Phencyclidine Screen Urine POSITIVE (Not Detect)
--- NOTE | 2022-03-18 10:03 | HO.SUDE ---
This tech writer met with patient, patient sleeping in bed, under blankets, awake to verbal stimuli. Patient reports smoking daily crack/ДМИТРИЙ, patient states occasional use of 1 bag heroin IN. Patient has had 5 overdoses in the past, after using only one bag. Patient states knows how to use Narcan, has used it in the past. Patient interested in Narcan upon d/c. 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 Patient declined detox at this time, patient has an appt at Welfare office today. Harm reduction, overdose prevention reviewed. Patient verbalized understanding. Patient provided with resources to [facility], Detox list, Addiction team contacts. Reviewed materials. Patient verbalized understanding.
== END 2022-03-18 11:02 | disposition home or self-care (01) ==
PROVIDERS: Emergency Provider Emergency Medicine Emergency Medical Services
DX: R40.4 Transient alteration of awareness (principal); T40.1X1A Poisoning by heroin, accidental (unintentional), initial encounter; Y92.9 Unspecified place or not applicable; F19.10 Other psychoactive substance abuse, uncomplicated; Z20.822 Contact with and (suspected) exposure to COVID-19; Z20.828 Contact with and (suspected) exposure to other viral communicable diseases; F11.10 Opioid abuse, uncomplicated; F17.210 Nicotine dependence, cigarettes, uncomplicated; Z79.899 Other long term (current) drug therapy
CPT/HCPCS: 0241U; 36415; 80053; 80307; 82077; 85025; 99284

== ENCOUNTER 2022-04-09 20:05 | Emergency (ER) | payer OTHER, MEDICAID, SELFPAY ==
[2022-04-09 20:14] VITALS: BP 137/85; PULSE 93; RESP 18; TEMP 37.2; O2SAT 95; BMI 25.7
[2022-04-09 20:51] LABS: Appearance Urine Clear; Color Urine Yellow; Glucose Urine UA Negative (Negative); Leukocyte Esterase Urine Negative (Negative); Nitrite Urine Negative (Negative); PH 5.5 (5.0-9.0); UMIC TRIGGER UA YES; Urine Blood Large (3+) (Negative); Urine Ketones Negative (Negative); Urine Protein 30 (1+) mg/dL (Neg-Trace)
[2022-04-09 20:56] LABS: Bacteria Urine None Seen (None Seen); Hyaline Casts Urine 0-2 /LPF (0-2); RBC Urine >20 /HPF (0-2); Squamous Epithelial Cell Urine 0-2 /HPF (0-2); WBC Urine 0-5 /HPF (0-5)
[2022-04-09 21:01] LABS: COVID-19 Test Negative (Negative); IDNOW Serial# 6674DD1D
[2022-04-09 21:17] LABS: Amphetamine Screen Urine Not Detected (Not Detect); Barbiturates, Urine Not Detected (Not Detect); Benzodiazepines Screen Urine Not Detected (Not Detect); Cannabinoid Screen Urine Not Detected (Not Detect); Cocaine Screen Urine POSITIVE (Not Detect); Fentanyl, urine POSITIVE (Not Detect); Opiate Screen Urine Not Detected (Not Detect); Phencyclidine Screen Urine Not Detected (Not Detect)
[2022-04-09 21:23] LABS: Basophils Percent Auto 0.4 % (0-2); Hemoglobin 15.6 g/dl (14.0-18.0); PLT CLUMP 1; SCAN SMEAR FLAG 1
[2022-04-09 21:25] LABS: Eosinophils Absolute Auto 0.1 X10*3/uL (0.0-0.4); Eosinophils Percent Auto 0.7 % (0-4); Hematocrit 45.6 % (42.0-52.0); Imm Gran Abs Auto 0.03 X10*3/uL (0.00-0.03); Imm Gran Pct Auto 0.4 % (0.0-0.4); Lymphocytes Absolute Auto 2.2 X10*3/uL (1.2-4.9); Lymphocytes Percent Auto 29.5 % (20-40); MANUAL DIFF FLAG SCAN; Mean Corpuscular HGB Conc 34.2 g/dl (31.0-36.0); Mean Corpuscular Hemoglobin 31.1 pg (27.0-33.0); Mean Corpuscular Volume 90.8 fL (80.0-98.0); Monocytes Absolute Auto 0.8 X10*3/uL (0.1-1.2); Monocytes Percent Auto 10.5 % (2-11); Neutrophils Absolute Auto 4.3 x10*3/uL (2.0-8.3); Neutrophils Percent Auto 58.5 % (45-73); Red Blood Count 5.02 X10*6/uL (4.60-5.80); Red Cell Distribution Width 14.3 % (11.0-16.0)
[2022-04-09 21:28] LABS: White Blood Count 7.4 X10*3/uL (4.8-10.8)
[2022-04-09 21:47] LABS: Platelet Count 127 X10*3/uL (160-400)
[2022-04-09 21:48] LABS: SLIDE REVIEW VERIFIED
[2022-04-09 21:50] LABS: Acetaminophen LAB < 17 mcg/mL (<30); Alanine Aminotransferase 137 U/L (0-40); Albumin Level 4.3 g/dL (3.5-5.0); Alkaline Phosphatase 69 U/L (39-117); Anion Gap 13 (12-20); Aspartate Amino Transferase 149 U/L (5-37); Bilirubin Total 0.6 mg/dL (0.0-1.0); Blood Urea Nitrogen 17 mg/dL (9-16); Calcium 9.4 mg/dL (8.4-10.2); Carbon Dioxide 28 mmol/L (22-29); Chloride 101 mmol/L (96-108); Creatinine Clr Calc Pharmacy 101.6; Estimated Glomerular Filt Rate > 60; Ethanol < 10 mg/dL; Glucose Random 109 mg/dL (60-115); Potassium 3.8 mmol/L (3.3-5.1); Salicylate < 5.0 mg/dL (15-30); Sodium 138 mmol/L (135-145)
[2022-04-09 21:59] LABS: TSH reflex Free T4 1.72 uIU/mL (0.32-4.0)
--- NOTE | 2022-04-09 22:04 | ED.PSYCH ---
HPI - Psych General Chief Complaint: Psychiatric Symptoms Stated Complaint: depression SI Time Seen by Provider: 04/09/22 20:47 Source: patient and EMS Mode of arrival: EMS Limitations: no limitations History of Present Illness HPI Narrative: 57-year-old male with a history of substance abuse, PTSD, MDD presents via EMS for suicidal ideation and plan X a few months worsening over the past few days. Denies HI. Patient tells me he was planning to walk out in front of traffic today. Patient tells me he is anxious and depressed does not want to live anymore. Patient denies recent alcohol use but tells me he smokes crack cocaine 3 times a day and smokes 10 cigarettes a day. Patient states he is having auditory hallucinations and visual hallucinations. No tactile hallucinations. 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 Denies medical complaints. Related Data Home Medications Medication Instructions Recorded Confirmed albuterol sulfate 90 mcg/actuation 2 puff inhalation Q4H PRN wheezing 03/18/22 04/09/22 aerosol inhaler (Ventolin HFA) aripiprazole 20 mg tablet 1 tab PO BEDTIME 03/18/22 04/09/22 clonidine HCl 0.1 mg tablet 0.2 mg PO BID 03/18/22 04/09/22 gabapentin 300 mg capsule 1 cap PO TID 03/18/22 04/09/22 hydroxyzine HCl 50 mg tablet 1 tab PO Q6H PRN Anxiety 03/18/22 04/09/22 trazodone 150 mg tablet 1 tab PO BEDTIME PRN Insomnia 03/18/22 04/09/22 atorvastatin 10 mg tablet 5 mg PO DAILY 04/09/22 04/09/22 duloxetine 20 mg capsule,delayed 40 mg PO BID 04/09/22 04/09/22 release (Cymbalta) mirtazapine 15 mg tablet 1 tab PO BEDTIME 04/09/22 04/09/22 quetiapine 25 mg tablet 25 mg PO BID 04/09/22 04/09/22 Allergies Allergy/AdvReac Type Severity Reaction Status Date / Time aspirin [ASA] Allergy Unknown ITCHING Verified 12/01/21 12:39 Review of Systems Review of Systems: Constitutional : No Fever, No Chills ENT/Mouth : No Ear Pain, No Nasal Congestion, No sore throat Eyes: No Eye Pain, No Swelling, No Redness Cardiovascular : No Chest Pain, No SOB Respiratory : No Cough, No Sputum, No Dyspnea Gastrointestinal : No Nausea, No Vomiting, No Diarrhea, No Hematochezia, No Melena Genitourinary : No Dysuria, No Urinary Frequency, No Hematuria Musculoskeletal : No Myalgias Skin : +skin abrasion, No rash Neuro : No Weakness, No Numbness, No Paresthesias, No Dizziness, No Headache Psych : positive Anxiety, positive Depression, positive SI, no HI All other systems reviewed and are negative Yes all other systems are reviewed and are negative [facility] Past Medical History Attestation statement: The following information was validated with the patient. Source: old records reviewed and nursing notes reviewed Medical History Heroin abuse Polysubstance abuse Surgical History No pertinent past surgical history Family History Family History Other No family history of coronary artery disease Social History Social History Alcohol intake: current Alcohol intake frequency: 0-2 drinks per day Patient Tobacco Use Status: Current everyday Tobacco user Tobacco use type: Cigarette Cigarette Packs Per Day: 1 Cigarettes Per Day: 20.0 Second Hand Smoke Exposure: No Substance Use Type: Crack/Cocaine, Heroin and Marijuana Advance Directives: No Advance Directives Information Provided: No service: No Current occupational status: disabled Physical Exam Vital Signs: Vital Signs: Last Vital Signs Temp 98.9 F 04/09/22 20:14 Pulse 93 04/09/22 20:14 Resp 18 04/09/22 20:14 BP 137/85 04/09/22 20:14 Pulse Ox 95 04/09/22 20:14 O2 Del Method 04/09/22 20:14 BMI result Body Mass Index 25.7 vss Appearance: Alert.? Oriented X3.? No acute distress.? Head: Normocephalic, atraumatic, no step-offs or deformities Eyes: Pupils equal, round and reactive to light.? Neck: Normal inspection.? Neck supple.? CVS: Normal heart rate and rhythm.? Pulses normal.? Respiratory: No respiratory distress.? Breath sounds normal.? Abdomen: Soft and nontender.? Skin: Open non bleeding abrasion left thumb pad. Skin warm and dry.? Normal skin color.? Normal skin turgor.? Extremities: No lower extremity edema.? No calf ttp. 5/5 strength to bilateral upper and lower extremities Neuro: Oriented X 3.? No motor deficit.? No sensory deficit. CN 2-12 intact Course Reevaluation(s) Reevaluation #1: CBC appears to be around normal limits. Chemistry with no acute electrolyte abnormalities requiring intervention. Transaminases elevated however they have been elevated in the past. No acute findings. TSH normal. UA without infection urine toxicology positive for fentanyl, cocaine. Salicylates, acetaminophen and ethanol level negative. COVID negative. Patient common cooperative, vital signs stable. At this time will be placed in observation to allow more time to be evaluated by care team. At time observation was started patient common cooperative no acute distress will continue to monitor Time: 23:40 Medical Decision Making Medical Decision Making [facility] Narrative: 57-year-old with a history of substance abuse, PTSD, MDD presents for suicidal ideations with a plan X month worsening over the past few dats, Physical exam significant for open abrasion L. thumb Likely MDD versus polysubstance use. Less likely electrolyte abnormalities or metabolic disturbances Plan: Labs, wound management ( will apply bacitracin), behavioral health eval. Differential Diagnosis Differential Diagnoses: The differential diagnosis associated with the presentation includes Likely MDD versus polysubstance use. Less likely electrolyte abnormalities or metabolic disturbances Admission/Observation Consideration of admission/observation: Escalation of care including admission/observation considered Likely MDD versus polysubstance use. Less likely electrolyte abnormalities or metabolic disturbances Consult Healthcare Provider Management of the patient was discussed with: Behavioral Health Provider Lab Data [facility] Lab Attestation statement: I reviewed the patient's lab results. 04/09/22 21:17 04/09/22 21:17 Labs: Lab Results 04/09/22 04/09/22 04/09/22 Range/Units 20:32 20:32 20:32 WBC (4.8-10.8) X10*3/uL RBC (4.60-5.80) X10*6/uL Hgb (14.0-18.0) g/dl Hct (42.0-52.0) % MCV (80.0-98.0) fL MCH (27.0-33.0) pg MCHC (31.0-36.0) g/dl RDW (11.0-16.0) % Plt Count (160-400) X10*3/uL MPV (9.4-12.4) fL Immature Gran % (Auto) (0.0-0.4) % Neut % (Auto) (45-73) % Lymph % (Auto) (20-40) % [place] % (Auto) (2-11) % Eos % (Auto) (0-4) % Baso % (Auto) (0-2) % Lymph # (Auto) (1.2-4.9) X10*3/uL [place] # (Auto) (0.1-1.2) X10*3/uL Eos # (Auto) (0.0-0.4) X10*3/uL Baso # (Auto) (0.0-0.2) X10*3/uL Abs Immat Gran (auto) (0.00-0.03) X10*3/uL Absolute Neuts (auto) (2.0-8.3) x10*3/uL Absolute Nucleated RBC (0.0-0.012) X10*3/uL Nucleated RBC % (auto) (0.0-0.2) /100WBC Smear Tech's Comments Sodium (135-145) mmol/L Potassium (3.3-5.1) mmol/L Chloride (96-108) mmol/L Carbon Dioxide (22-29) mmol/L Anion Gap (12-20) BUN (9-16) mg/dL Creatinine (0.5-1.4) mg/dL Estim Creat Clear Calc Estimated GFR Random Glucose (60-115) mg/dL Calcium (8.4-10.2) mg/dL Total Bilirubin (0.0-1.0) mg/dL AST (5-37) U/L ALT (0-40) U/L Alkaline Phosphatase (39-117) U/L Total Protein (6.5-8.0) g/dL Albumin (3.5-5.0) g/dL TSH (0.32-4.0) uIU/mL Urine Color Yellow Urine Appearance Clear Urine pH 5.5 (5.0-9.0) Ur Specific [place] 1.020 (1.005-1.025) Urine Protein 30 (1+) H (Neg-Trace) mg/dL Urine Glucose (UA) Negative (Negative) mg/dL Urine Ketones Negative (Negative) mg/dL Urine Blood Large (3+) H (Negative) Urine Nitrite Negative (Negative) Ur Leukocyte Esterase Negative (Negative) Urine RBC >20 H (0-2) /HPF Urine WBC 0-5 (0-5) /HPF Ur Squamous Epith Cells 0-2 (0-2) /HPF Urine Bacteria None Seen (None Seen) Hyaline Casts 0-2 (0-2) /LPF Salicylates (15-30) mg/dL Urine Opiates Screen Not Detected (Not Detect) Urine Fentanyl Screen POSITIVE H (Not Detect) Acetaminophen (<30) mcg/mL Ur Barbiturates Screen Not Detected (Not Detect) Ur Phencyclidine Scrn Not Detected (Not Detect) Ur Amphetamines Screen Not Detected (Not Detect) U Benzodiazepines Scrn Not Detected (Not Detect) Urine Cocaine Screen POSITIVE H (Not Detect) U Marijuana (THC) Screen Not Detected (Not Detect) Ethyl Alcohol mg/dL COVID-19 (ZIYAD) Negative (Negative) COVID-19 Clin Com See Note 04/09/22 04/09/22 04/09/22 Range/Units 21:17 21:17 21:17 WBC 7.4 (4.8-10.8) X10*3/uL RBC 5.02 (4.60-5.80) X10*6/uL Hgb 15.6 (14.0-18.0) g/dl Hct 45.6 (42.0-52.0) % MCV 90.8 (80.0-98.0) fL MCH 31.1 (27.0-33.0) pg MCHC 34.2 (31.0-36.0) g/dl RDW 14.3 (11.0-16.0) % Plt Count 127 L (160-400) X10*3/uL MPV 12.0 (9.4-12.4) fL Immature Gran % (Auto) 0.4 (0.0-0.4) % Neut % (Auto) 58.5 (45-73) % Lymph % (Auto) 29.5 (20-40) % [place] % (Auto) 10.5 (2-11) % Eos % (Auto) 0.7 (0-4) % Baso % (Auto) 0.4 (0-2) % Lymph # (Auto) 2.2 (1.2-4.9) X10*3/uL [place] # (Auto) 0.8 (0.1-1.2) X10*3/uL Eos # (Auto) 0.1 (0.0-0.4) X10*3/uL Baso # (Auto) 0.0 (0.0-0.2) X10*3/uL Abs Immat Gran (auto) 0.03 (0.00-0.03) X10*3/uL Absolute Neuts (auto) 4.3 (2.0-8.3) x10*3/uL Absolute Nucleated RBC 0.000 (0.0-0.012) X10*3/uL Nucleated RBC % (auto) 0.0 (0.0-0.2) /100WBC Smear Tech's Comments VERIFIED Sodium 138 (135-145) mmol/L Potassium 3.8 (3.3-5.1) mmol/L Chloride 101 (96-108) mmol/L Carbon Dioxide 28 (22-29) mmol/L Anion Gap 13 (12-20) BUN 17 H (9-16) mg/dL Creatinine 0.88 (0.5-1.4) mg/dL Estim Creat Clear Calc 101.6 Estimated GFR > 60 Random Glucose 109 (60-115) mg/dL Calcium 9.4 (8.4-10.2) mg/dL Total Bilirubin 0.6 (0.0-1.0) mg/dL AST 149 H (5-37) U/L ALT 137 H (0-40) U/L Alkaline Phosphatase 69 (39-117) U/L Total Protein 7.0 (6.5-8.0) g/dL Albumin 4.3 (3.5-5.0) g/dL TSH 1.72 (0.32-4.0) uIU/mL Urine Color Urine Appearance Urine pH (5.0-9.0) Ur Specific [place] (1.005-1.025) Urine Protein (Neg-Trace) mg/dL Urine Glucose (UA) (Negative) mg/dL Urine Ketones (Negative) mg/dL Urine Blood (Negative) Urine Nitrite (Negative) Ur Leukocyte Esterase (Negative) Urine RBC (0-2) /HPF Urine WBC (0-5) /HPF Ur Squamous Epith Cells (0-2) /HPF Urine Bacteria (None Seen) Hyaline Casts (0-2) /LPF Salicylates < 5.0 L (15-30) mg/dL Urine Opiates Screen (Not Detect) Urine Fentanyl Screen (Not Detect) Acetaminophen < 17 (<30) mcg/mL Ur Barbiturates Screen (Not Detect) Ur Phencyclidine Scrn (Not Detect) Ur Amphetamines Screen (Not Detect) U Benzodiazepines Scrn (Not Detect) Urine Cocaine Screen (Not Detect) U Marijuana (THC) Screen (Not Detect) Ethyl Alcohol < 10 mg/dL COVID-19 (ZIYAD) (Negative) COVID-19 Clin Com Core Measures AMI core measures followed: Yes Measure exclusions: not indicated Critical Care Time Critical Care Time Critical Care Time: No Discharge Plan Discharge Clinical Impression: Substance abuse, MDD (major depressive disorder), recurrent episode, moderate, Abrasion Prescriptions: No Action clonidine HCl 0.1 mg tablet 0.2 mg PO BID hydroxyzine HCl 50 mg tablet 1 tab PO Q6H PRN (Reason: Anxiety) trazodone 150 mg tablet 1 tab PO BEDTIME PRN (Reason: Insomnia) gabapentin 300 mg capsule 1 cap PO TID albuterol sulfate [Ventolin HFA] 90 mcg/actuation HFA aerosol inhaler 2 puff inhalation Q4H PRN (Reason: wheezing) aripiprazole 20 mg tablet 1 tab PO BEDTIME quetiapine 25 mg Tablet 25 mg PO BID duloxetine [Cymbalta] 20 mg Capsule,Delayed Release(Dr/Ec) 40 mg PO BID atorvastatin 10 mg Tablet 5 mg PO DAILY mirtazapine 15 mg tablet 1 tab PO BEDTIME Interventions: King-Suicide Risk Severity Scale Last Done: 04/09/22 20:42
[2022-04-09 23:47] VITALS: BP 139/81; PULSE 89; RESP 17; TEMP 36.4; O2SAT 93
[2022-04-10] MEDS: traZODone HCL 50 MG TABLET 150 MG PO ×2 (00:20→20:56)
--- NOTE | 2022-04-10 06:34 | PC.NURSE ---
Patient slept through the night, no distress observed/reported, medication compliant, Bacitracin applied to thumbs per provider's verbal order, behavior non concerning, care consult ordered/pending evaluation in the morning, VSS, will continue to monitor.
[2022-04-10] MEDS: Gabapentin 300 MG CAPSULE PO ×3 (09:39→20:28)
[2022-04-10] MEDS: QUEtiapine Fumarate 25 MG TABLET PO ×2 (09:39→20:28)
[2022-04-10] MEDS: DULoxetine HCl 20 MG CAPSULE.DR 40 MG PO ×2 (09:39→20:28)
[2022-04-10] MEDS: Atorvastatin Calcium 10 MG TABLET 5 MG PO (09:39)
[2022-04-10] MEDS: cloNIDine HCL 0.2 MG TABLET PO ×2 (09:39→20:28)
--- NOTE | 2022-04-10 16:02 | MHC.CARE ---
Pt seen by CARE team and dual diagnosis bedsearch in process.
--- NOTE | 2022-04-10 18:40 | PC.NURSE ---
Patient remains calm and cooperative throughout shift. Eating all of dinner and now resting in bed. Ambulating independently to bathroom with steady gait. Remains alert and oriented x3, speech clear, able to make needs known.
[2022-04-10 20:23] VITALS: BP 113/75; PULSE 66; RESP 18; TEMP 36.6; O2SAT 96
[2022-04-10] MEDS: Mirtazapine 15 MG TABLET PO (20:28)
[2022-04-10] MEDS: ARIPiprazole 20 MG TABLET PO (20:50)
--- NOTE | 2022-04-11 06:19 | PC.NURSE ---
Patient slept through the night, no distress observed/reported, behavior non concerning, medication compliant, disposition per care team is dual diagnosis bed search, VSS, will continue to monitor.
[2022-04-11 06:29] VITALS: BP 105/64; PULSE 56; RESP 16; TEMP 37.4; O2SAT 93
--- NOTE | 2022-04-11 07:44 | PC.NURSE ---
assumed care of patient, pt resting comfortably in bed, no needs at this time, in no apparent distress, awaiting dual diagnosis bed.
[2022-04-11] MEDS: QUEtiapine Fumarate 25 MG TABLET PO ×2 (08:04→20:23)
[2022-04-11] MEDS: DULoxetine HCl 20 MG CAPSULE.DR 40 MG PO ×2 (08:04→20:23)
[2022-04-11] MEDS: cloNIDine HCL 0.2 MG TABLET PO ×2 (08:04→20:32)
[2022-04-11] MEDS: Atorvastatin Calcium 10 MG TABLET 5 MG PO (08:04)
[2022-04-11] MEDS: Gabapentin 300 MG CAPSULE PO ×3 (08:04→20:23)
--- NOTE | 2022-04-11 13:34 | MHC.RECOVSUP ---
? Reason for consult: Recovery Support o Current location: [facility]? o Identified substance use concern: [facility]CO[facility] ? - Seeking ATS (detox) - Support ? ?Intervention: o ATS bed search started/completed/in process o Community resources provided o Harm reduction discussion ? Plan: o Bed search in progress to ? Additional information: Patient consultation with care team before entry. womens volleyball coach met with pt and discussed further treatment. Pt informed womens volleyball coach that he is not physically detoxing at this time and was just at [facility] 2 days ago. Pt did have a re occurrence with crack/cocaine since then. CSS was suggested and referral was sent over to [facility], waiting for response at this time. ?
[2022-04-11] MEDS: traZODone HCL 50 MG TABLET 150 MG PO (20:31)
[2022-04-11 20:32] VITALS: BP 117/64; PULSE 60; RESP 18; TEMP 36.6; O2SAT 95
[2022-04-11] MEDS: Mirtazapine 15 MG TABLET PO (20:32)
[2022-04-11] MEDS: ARIPiprazole 20 MG TABLET PO (20:59)
[2022-04-12 05:14] VITALS: BP 109/72; PULSE 65; RESP 16; TEMP 36.6; O2SAT 95
--- NOTE | 2022-04-12 06:40 | PC.NURSE ---
pt slept during the shift, tolerated well
[2022-04-12] MEDS: QUEtiapine Fumarate 25 MG TABLET PO (09:40)
[2022-04-12] MEDS: Gabapentin 300 MG CAPSULE PO (09:40)
[2022-04-12] MEDS: cloNIDine HCL 0.2 MG TABLET PO (09:40)
[2022-04-12] MEDS: DULoxetine HCl 20 MG CAPSULE.DR 40 MG PO (09:40)
[2022-04-12] MEDS: Atorvastatin Calcium 10 MG TABLET 5 MG PO (09:40)
--- NOTE | 2022-04-12 09:44 | PC.NURSE ---
facilities maintenance engineer to meet with pt for ?detox this morning.
--- NOTE | 2022-04-12 09:57 | MHC.RECOVRN ---
This creative writer met w/ patient, patient laying in bed under blankets, awake to verbal command. 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 Patient since has been cleared by Care Team and Dope House Operator Helper met w/ patient yesterday. Patient is not in withdrawal, at this time is not eligible for detox. Dope House Operator Helper sent referral to [facility] level of care 04/11 to [facility]. Reviewed this with patient, patient agreeable to second referral being sent to [facility] in [place]. Discussed recovery supports, patient is not interested in Dope House Operator Helper, patient agreeable to [facility] contact info for recovery supports. T/W sent CSS referral to [facility], [facility] not answering phone currently.
--- NOTE | 2022-04-12 11:20 | MHC.RECOVRN ---
This financial writer met w/ patient, patient laying in bed, alert to verbal command. This financial writer reviewed that [facility] referral was placed today as well as [facility] referral placed yesterday. Patient given CSS contact information to follow up from the community. T/W communicated clear instruction on the process, for patient to call both CSS's daily to check on status of opening. Patient given [facility] resource information to follow up with from the community. Patient verbalized understanding. Provider aware.
== END 2022-04-12 12:04 | disposition home or self-care (01) ==
PROVIDERS: Emergency Medicine Emergency Medical Services; Emergency Provider Emergency Medicine
DX: F33.1 Major depressive disorder, recurrent, moderate (principal); S60.419A Abrasion of unspecified finger, initial encounter; R45.851 Suicidal ideations; F17.210 Nicotine dependence, cigarettes, uncomplicated; X83.8XXA Intentional self-harm by other specified means, initial encounter; Y93.9 Activity, unspecified; Y92.9 Unspecified place or not applicable; Y99.9 Unspecified external cause status; Z20.822 Contact with and (suspected) exposure to COVID-19; Z20.828 Contact with and (suspected) exposure to other viral communicable diseases; Z79.899 Other long term (current) drug therapy; Z71.6 Tobacco abuse counseling
CPT/HCPCS: 36415; 80053; 80143; 80179; 80307; 81001; 82077; 84443; 85025; 87635; 99284; 99285; S9485

== ENCOUNTER 2022-04-15 18:08 | Emergency (ER) | payer MEDICAID, SELFPAY ==
[2022-04-15 18:16] VITALS: BP 142/78; PULSE 88; O2SAT 94
[2022-04-15 18:26] VITALS: BP 135/83; PULSE 84; RESP 18; TEMP 37.2; O2SAT 92; BMI 25.7
--- NOTE | 2022-04-15 18:41 | ED.OVERDOSE ---
HPI - Overdose General Chief Complaint: ETOH/Substance Use <Cristina Pereira NP - Last Filed: 04/16/22 02:35> Stated Complaint: substance abuse <Cristina Pereira NP - Last Filed: 04/16/22 02:35> Time Seen by Provider: 04/15/22 18:34 <Cristina Pereira NP - Last Filed: 04/16/22 02:35> Source: patient and EMS <Cristina Pereira NP - Last Filed: 04/16/22 02:35> Mode of arrival: EMS <Cristina Pereira NP - Last Filed: 04/16/22 02:35> Limitations: no limitations <Cristina Pereira NP - Last Filed: 04/16/22 02:35> History of Present Illness HPI Narrative: 57-year-old male presents via EMS for detox. Patient states these been smoking crack and drinking alcohol in excess on a daily basis. <Cristina Pereira NP - Last Filed: 04/16/22 02:35> Onset (ago): year(s) <Cristina Pereira NP - Last Filed: 04/16/22 02:35> Context: Intentional Overdose: drug/ETOH problems <Cristina Pereira NP - Last Filed: 04/16/22 02:35> Context: Accidental Overdose: wanted to get high <Cristina Pereira NP - Last Filed: 04/16/22 02:35> Related Data Home Medications: Home Medications Medication Instructions Recorded Confirmed albuterol sulfate 90 mcg/actuation 2 puff inhalation Q4H PRN wheezing 03/18/22 04/09/22 aerosol inhaler (Ventolin HFA) aripiprazole 20 mg tablet 1 tab PO BEDTIME 03/18/22 04/09/22 clonidine HCl 0.1 mg tablet 0.2 mg PO BID 03/18/22 04/09/22 gabapentin 300 mg capsule 1 cap PO TID 03/18/22 04/09/22 hydroxyzine HCl 50 mg tablet 1 tab PO Q6H PRN Anxiety 03/18/22 04/09/22 trazodone 150 mg tablet 1 tab PO BEDTIME PRN Insomnia 03/18/22 04/09/22 atorvastatin 10 mg tablet 5 mg PO DAILY 04/09/22 04/09/22 duloxetine 20 mg capsule,delayed 40 mg PO BID 04/09/22 04/09/22 release (Cymbalta) mirtazapine 15 mg tablet 1 tab PO BEDTIME 04/09/22 04/09/22 quetiapine 25 mg tablet 25 mg PO BID 04/09/22 04/09/22 Previous Rx's Medication Instructions Recorded doxycycline monohydrate 100 mg 100 mg PO BID 7 days #14 caps 04/16/22 capsule <Cristina Pereira NP - Last Filed: 04/16/22 02:35> Allergies/Adverse Reactions: Allergies Allergy/AdvReac Type Severity Reaction Status Date / Time aspirin [ASA] Allergy Unknown ITCHING Verified 12/01/21 12:39 <Cristina Pereira NP - Last Filed: 04/16/22 02:35> Review of Systems Review of Systems: Constitutional: No Fever, No Chills Cardiovascular: No Chest Pain, No SOB Respiratory: No Cough, No Sputum Gastrointestinal: No Nausea, No Vomiting, No Diarrhea, No abdominal Pain Genitourinary: No Dysuria, No Hematuria Musculoskeletal: No joint pain, No Myalgias, No Joint Swelling Skin: Multiple tinoco to fingers. Neuro: No Weakness, No Numbness, No Dizziness, No Headache Psych: Positive Anxiety, positive Depression, positive polysubstance abuse, No SI/HI/AH/VH <Cristina Pereira NP - Last Filed: 04/16/22 02:35> Yes all other systems are reviewed and are negative <Cristina Pereira NP - Last Filed: 04/16/22 02:35> PMFSH Past Medical History Attestation statement: The following information was validated with the patient. <Cristina Pereira NP - Last Filed: 04/16/22 02:35> Source: old records reviewed <Cristina Pereira NP - Last Filed: 04/16/22 02:35> Medical History: Medical History Heroin abuse Polysubstance abuse <Cristina Pereira NP - Last Filed: 04/16/22 02:35> Surgical History: Surgical History No pertinent past surgical history <Cristina Pereira NP - Last Filed: 04/16/22 02:35> Family History Family History: Family History Other No family history of coronary artery disease <Cristina Pereira NP - Last Filed: 04/16/22 02:35> Social History Social History: Social History Alcohol intake: current Alcohol intake frequency: 3 or more drinks per day Alcohol type: hard liquor Patient Tobacco Use Status: Current everyday Tobacco user Tobacco use type: Cigarette Cigarette Packs Per Day: 1 Cigarettes Per Day: 20.0 Smoked in Last 30 Days: No Second Hand Smoke Exposure: No Use of substances other than those prescribed or required for medical reasons: Yes Substance Use Type: Crack/Cocaine Substance Use Frequency: Daily Last Used Substance: Hours (ago) Advance Directives: No Advance Directives Information Provided: No service: No Current occupational status: disabled <Cristina Pereira NP - Last Filed: 04/16/22 02:35> Physical Exam Vital Signs: Vital Signs: Last Vital Signs Temp 97.8 F 04/16/22 10:00 Pulse 63 04/16/22 10:00 Resp 20 04/16/22 10:00 BP 132/80 04/16/22 10:00 Pulse Ox 94 04/16/22 10:00 O2 Del Method 04/16/22 10:00 BMI result Body Mass Index 25.7 <Cristina Pereira NP - Last Filed: 04/16/22 02:35> Vital Signs: Last Vital Signs Temp 97.8 F 04/16/22 10:00 Pulse 63 04/16/22 10:00 Resp 20 04/16/22 10:00 BP 132/80 04/16/22 10:00 Pulse Ox 94 04/16/22 10:00 O2 Del Method 04/16/22 10:00 BMI result Body Mass Index 25.7 <LEAH Stein - Last Filed: 04/16/22 10:19> Appearance: Alert. Oriented X3. Moderate distress. Disheveled. Eyes: Pupils equal, round and reactive to light. Sclera nonicteric Neck: Normal inspection. Neck supple. CVS: Normal heart rate and rhythm. Pulses normal. Respiratory: No respiratory distress. Breath sounds normal. Abdomen: Soft and nontender. Skin: Multiple wounds on fingers consistent with tinoco. Extremities: No lower extremity edema. Gait balanced and coordinated Neuro: No motor deficit. No sensory deficit. Cranial nerves 2-12 intact. <Cristina Pereira NP - Last Filed: 04/16/22 02:35> Course Course Course Narrative: 57-year-old male presents via EMS for evaluation and detox placement. Patient has been using crack and alcohol excessively for years. He has multiple tinoco on all of his fingertips from crack pipe use. He is homeless. While he does not report suicidal or homicidal ideation, he is depressed. He does have a history of major depressive disorder and PTSD. He has had multiple presentations to this facility for similar circumstances. Patient does not report any medical complaints at this time. Will update Tdap vaccine today due to the numerous burn harris on his fingertips, and treat with doxycycline. Recovery team unable to get patient into a detox facility tonight, plan of care is to have patient present detox tomorrow morning. I will provide him with a prescription for doxycycline for the next 7 days. <Cristina Pereira NP - Last Filed: 04/16/22 02:35> Reevaluation(s) Reevaluation #1: 04/16/22--physician observation completed. Patient was evaluated by recovery & agreeable to [facility], will be transferred via [employer] <LEAH Stein - Last Filed: 04/16/22 10:19> Time: 10:17 <LEAH Stein - Last Filed: 04/16/22 10:19> Consultations Consultation #1: Recovery team <Cristina Pereira NP - Last Filed: 04/16/22 02:35> Medications Administered Discontinued Medications Generic Name Dose Route Start Last Admin Trade Name Freq PRN Reason Stop Dose Admin Acetaminophen 650 mg 04/15/22 23:44 04/15/22 23:53 Acetaminophen 325 Mg Tablet PO 04/15/22 23:45 650 mg ONCE ONE Administration Diphtheria/Tetanus/Acell Pertussis 0.5 ml 04/15/22 20:15 04/15/22 20:23 Diphth,Pertus(Acell),Tet Adult 0.5 Ml Syringe IM 04/15/22 20:16 0.5 ml .ONCE ONE Administration Doxycycline Monohydrate 100 mg 04/15/22 19:11 04/15/22 20:15 Doxycycline Monohydrate 100 Mg Capsule PO 04/15/22 19:12 100 mg ONCE ONE Administration Doxycycline Monohydrate 100 mg 04/16/22 08:00 04/16/22 08:44 Doxycycline Monohydrate 100 Mg Capsule PO 04/16/22 08:01 100 mg ONCE ONE Administration Lorazepam 1 mg 04/15/22 23:44 04/15/22 23:53 Lorazepam 1 Mg Tablet PO 04/15/22 23:45 1 mg ONCE ONE Administration <Cristina Pereira NP - Last Filed: 04/16/22 02:35> Medications Administered Discontinued Medications Generic Name Dose Route Start Last Admin Trade Name Prasadq PRN Reason Stop Dose Admin Acetaminophen 650 mg 04/15/22 23:44 04/15/22 23:53 Acetaminophen 325 Mg Tablet PO 04/15/22 23:45 650 mg ONCE ONE Administration Diphtheria/Tetanus/Acell Pertussis 0.5 ml 04/15/22 20:15 04/15/22 20:23 Diphth,Pertus(Acell),Tet Adult 0.5 Ml Syringe IM 04/15/22 20:16 0.5 ml .ONCE ONE Administration Doxycycline Monohydrate 100 mg 04/15/22 19:11 04/15/22 20:15 Doxycycline Monohydrate 100 Mg Capsule PO 04/15/22 19:12 100 mg ONCE ONE Administration Doxycycline Monohydrate 100 mg 04/16/22 08:00 04/16/22 08:44 Doxycycline Monohydrate 100 Mg Capsule PO 04/16/22 08:01 100 mg ONCE ONE Administration Lorazepam 1 mg 04/15/22 23:44 04/15/22 23:53 Lorazepam 1 Mg Tablet PO 04/15/22 23:45 1 mg ONCE ONE Administration <LEAH Stein - Last Filed: 04/16/22 10:19> Medical Decision Making Differential Diagnosis Differential Diagnoses: The differential diagnosis associated with the presentation includes <Cristina Pereira NP - Last Filed: 04/16/22 02:35> Crack cocaine abuse, alcohol abuse, detox, or nonhealing wounds <Cristina Pereira NP - Last Filed: 04/16/22 02:35> Consult Healthcare Provider Management of the patient was discussed with: Behavioral Health Provider <Cristina Pereira NP - Last Filed: 04/16/22 02:35> External Record Review External record reviewed: Inpatient record, Outpatient record and Prior outpatient labs <Cristina Pereira NP - Last Filed: 04/16/22 02:35> Social Determinants Patient?s care significantly limited by Social Determinants of Health including: Other Social Determinant of Health <Cristina Pereira NP - Last Filed: 04/16/22 02:35> Discharge Plan Discharge Clinical Impression: Substance abuse, Burn of multiple fingers <Cristina Pereira NP - Last Filed: 04/16/22 02:35> Patient Disposition: Still a Patient <Cristina Pereira NP - Last Filed: 04/16/22 02:35> Instructions: Polysubstance Abuse (ED), Acute Wounds (ED) <Cristina Pereira NP - Last Filed: 04/16/22 02:35> Additional Instructions: Please present to detox. We are treating you with doxycycline 100 mg twice a day for the next 7 days. This medication is an antibiotic and is to treat the wounds on your fingers. Thank you for choosing this emergency department for evaluation. Please follow-up with primary care physician as needed. Return to the emergency department for any new, concerning, or worsening symptoms. <Cristina Pereira NP - Last Filed: 04/16/22 02:35> Prescriptions: New doxycycline monohydrate 100 mg capsule 100 mg PO BID 7 Days Qty: 14 0RF No Action clonidine HCl 0.1 mg tablet 0.2 mg PO BID hydroxyzine HCl 50 mg tablet 1 tab PO Q6H PRN (Reason: Anxiety) trazodone 150 mg tablet 1 tab PO BEDTIME PRN (Reason: Insomnia) gabapentin 300 mg capsule 1 cap PO TID albuterol sulfate [Ventolin HFA] 90 mcg/actuation HFA aerosol inhaler 2 puff inhalation Q4H PRN (Reason: wheezing) aripiprazole 20 mg tablet 1 tab PO BEDTIME quetiapine 25 mg Tablet 25 mg PO BID duloxetine [Cymbalta] 20 mg Capsule,Delayed Release(Dr/Ec) 40 mg PO BID atorvastatin 10 mg Tablet 5 mg PO DAILY mirtazapine 15 mg tablet 1 tab PO BEDTIME <Cristina Pereira NP - Last Filed: 04/16/22 02:35> Interventions: [place]-Suicide Risk Severity Scale Last Done: 04/16/22 05:17 <Cristina Pereira NP - Last Filed: 04/16/22 02:35>
--- NOTE | 2022-04-15 18:44 | PC.NURSE ---
patient changed into hospital gown. CIWA score 1. reports last drink 3 hours ago.
[2022-04-15 19:52] VITALS: BP 135/83; PULSE 83; RESP 18; O2SAT 93
[2022-04-15] MEDS: Doxycycline Monohydrate 100 MG CAPSULE PO (20:15)
[2022-04-15] MEDS: Diphth,Pertus(ACell),Tet Adult 0.5 ML SYRINGE IM (20:23)
[2022-04-15 20:26] VITALS: PULSE 72
--- NOTE | 2022-04-15 20:33 | PC.NURSE ---
Patient alert and oriented. Vital signs are stable. CIWA scale completed score of 2. Tetanus vaccine administered into right deltoid. Call sotelo within reach and instructed on use. Will continue to monitor
--- NOTE | 2022-04-15 21:26 | MHC.RECOVSUP ---
? Reason for consult:BOTH o? Current location:ED06? o? Identified substance use concern:? -? Overdose -? Seeking ATS (detox) -? Support ? Intervention: o? ATS bed search started/completed/in process o? Community resources provided ? Plan: o? Follow up tomorrow? ? Additional information:Rc spoke with pt about ATS services, RC called [facility], and [facility] but they all said to call back tomorrow. Please follow up tomorrow.
[2022-04-15 22:31] VITALS: BP 140/91; PULSE 69; RESP 16; O2SAT 94
--- NOTE | 2022-04-15 23:42 | PC.NURSE ---
Cristina, ED provider notified of CIWA score 9 at the last assessment, patient c/o severe headache. Verbal order obtained for Tylenol 650 mg PO once and Lorazepam 1 mg PO once.
[2022-04-15] MEDS: LORazepam 1 MG TABLET PO (23:53)
[2022-04-15] MEDS: Acetaminophen 325 MG TABLET 650 MG PO (23:53)
[2022-04-16 03:00] VITALS: BP 126/78; PULSE 64; RESP 16; TEMP 36.9; O2SAT 94
[2022-04-16 05:08] VITALS: BP 128/76; PULSE 78; RESP 16; TEMP 36.7; O2SAT 94
[2022-04-16 07:26] VITALS: BP 120/76; PULSE 66; RESP 17; TEMP 36.8; O2SAT 92
[2022-04-16] MEDS: Doxycycline Monohydrate 100 MG CAPSULE PO (08:44)
--- NOTE | 2022-04-16 09:52 | PC.NURSE ---
ASSUMED CARE OF PT AT 0700. PT A+O x4, VSS, DENIES PAIN. PT'S PREVIOUS CIWA 2 AND IS NOW 0. NO S/S OF ETOH WITHDRAWAL REPORTED/OBSERVED. PT UP TO RESTROOM, STEADY GAIT OBSERVED WITH AMBULATION. PT WAITING TO BE SEEN BY CARE TEAM, CREMATORY OPERATOR. WILL CONTINUE TO OBSERVE.
[2022-04-16 10:00] VITALS: BP 132/80; PULSE 63; RESP 20; TEMP 36.6; O2SAT 94
--- NOTE | 2022-04-16 10:02 | PC.NURSE ---
PT SEEN BY HELIO VULNERABILITY ASSESSMENT ANALYST AND PLAN IS TO DISCHARGE TO [facility]. PT AWARE OF PLAN.
--- NOTE | 2022-04-16 10:10 | MHC.RECOVRN ---
Pt agreeable to [facility]. Pt will be transported via [facility].
== END 2022-04-16 10:51 ==
PROVIDERS: Emergency Provider Emergency Medicine
DX: T23.121A Burn of first degree of single right finger (nail) except thumb, initial encounter (principal); S60.419A Abrasion of unspecified finger, initial encounter; T23.142A Burn of first degree of multiple left fingers (nail), including thumb, initial encounter; T31.0 Burns involving less than 10% of body surface; F14.10 Cocaine abuse, uncomplicated; F11.10 Opioid abuse, uncomplicated; X08.8XXA Exposure to other specified smoke, fire and flames, initial encounter; Y93.9 Activity, unspecified; Y92.9 Unspecified place or not applicable; Y99.9 Unspecified external cause status; F17.210 Nicotine dependence, cigarettes, uncomplicated; Z71.6 Tobacco abuse counseling; Z79.899 Other long term (current) drug therapy; Z23 Encounter for immunization; Z59.00 Homelessness unspecified; Z71.51 Drug abuse counseling and surveillance of drug abuser
CPT/HCPCS: 90471; 90715; 99285

== ENCOUNTER 2022-07-17 11:56 | Emergency (ER) | payer MEDICAID, SELFPAY ==
--- NOTE | ~2022-07-17 | CT_ITS ---
EXAMINATION: CT ABDOMEN AND PELVIS WITHOUT CONTRAST CLINICAL INFORMATION: Diffuse abdominal pain. COMPARISON: CT abdomen and pelvis from 12/21/2020 TECHNIQUE: Multidetector volumetric imaging was performed from the superior aspect of the liver through the pubic symphysis. Sagittal and coronal reformatted images were obtained on the technologist's workstation. This CT examination was performed using dose optimization techniques as appropriate, variously including the following: *Automated exposure control *Adjustment of mA and/or kV according to patient size (this includes techniques or standardized protocols for targeted exams where dose is matched to indication/reason for exam; i.e. extremities or head) *Use of iterative reconstruction technique DLP: 472 mGy-cm FINDINGS: LUNG BASES: Minimal atelectasis of lower lobes. No pulmonary consolidation or pleural effusion. LIVER: The liver has normal size, shape, and attenuation. No evidence of liver mass. GALLBLADDER AND BILIARY TREE: Gallbladder is without radiopaque stones, wall thickening or pericholecystic fluid. No dilated bile ducts. PANCREAS: Normal. No edema, pancreatic ductal dilatation or mass. SPLEEN: Normal. ADRENAL GLANDS: Normal. KIDNEYS AND URETERS: Kidneys are normal in size. 1.5 cm simple cyst of the right lower pole (image 40, series 3). No renal imaging follow-up recommended for a simple cyst. An old small metallic density is present in anterior cortex of the mid left kidney. Small 0.2 x 0.5 cm calyceal stone is present in the left lower pole. No ureteral stones. No hydroureter, hydronephrosis or perinephric edema. BLADDER: Normal. No calculi or wall thickening. BOWEL AND PERITONEUM: Stomach is unremarkable. No dilated loops of bowel. The appendix is normal. No overt bowel wall thickening or mesenteric fat stranding. No free fluid or pneumoperitoneum. ABDOMINAL WALL: Unremarkable. VASCULATURE: Mild atherosclerotic calcification of abdominal aorta without aneurysm. LYMPH NODES: No pathologic sized lymph nodes in the abdomen or pelvis. No inguinal lymphadenopathy. PELVIC VISCERA: Prostate gland measures 4.8 x 3.3 x 4.5 cm. No pelvic mass. No pelvic free fluid. MUSCULOSKELETAL: Unremarkable. CT/CT abdomen pelvis wo IV con IMPRESSION: * No acute imaging abnormalities in the abdomen or pelvis compared to 12/21/2020. * Small stone of the lower pole of the left kidney remains similar in size compared to 12/21/2020. No ureteral stones or hydroureteronephrosis. * No acute inflammatory change or obstruction along the gastrointestinal tract.
[2022-07-17 12:14] VITALS: BP 137/77; PULSE 69; RESP 16; TEMP 36.6; O2SAT 97; BMI 23.0
--- NOTE | 2022-07-17 12:16 | ED_ITS ---
HPI - General Adult General Chief complaint: Abdominal Pain Stated complaint: pain when throwing up Time Seen by Provider: 07/17/22 15:19 Source: patient Mode of arrival: ambulatory Limitations: no limitations History of Present Illness HPI narrative: Patient is a 57-year-old male with history of polysubstance use disorder, PTSD, MDD, generalized seizure presenting to the ED with complaint of nausea, vomiting, and abdominal pain for the past two weeks. Patient reports pain is primarily epigastric. Reports using alcohol as well as crack/cocaine regularly. He denies any hematemesis, hematochezia, or melena. Denies fevers. Denies chest pain or shortness of breath. Reports he is able to tolerate food and fluids intermittently. Denies any diarrhea or constipation, denies any urinary symptoms. MD complaint: abdominal pain, nausea, vomiting Onset (ago): week(s) Location: abdomen Radiation: non-radiation Pain Consistency: intermittent Exacerbating factors: eating Associated symptoms: denies other symptoms Treatments prior to arrival: none Related Data Home Medications Medication Instructions Recorded Confirmed albuterol sulfate 90 mcg/actuation 2 puff inhalation Q4H PRN wheezing 03/18/22 04/09/22 aerosol inhaler (Ventolin HFA) aripiprazole 20 mg tablet 1 tab PO BEDTIME 03/18/22 04/09/22 clonidine HCl 0.1 mg tablet 0.2 mg PO BID 03/18/22 04/09/22 gabapentin 300 mg capsule 1 cap PO TID 03/18/22 04/09/22 hydroxyzine HCl 50 mg tablet 1 tab PO Q6H PRN Anxiety 03/18/22 04/09/22 trazodone 150 mg tablet 1 tab PO BEDTIME PRN Insomnia 03/18/22 04/09/22 atorvastatin 10 mg tablet 5 mg PO DAILY 04/09/22 04/09/22 duloxetine 20 mg capsule,delayed 40 mg PO BID 04/09/22 04/09/22 release (Cymbalta) mirtazapine 15 mg tablet 1 tab PO BEDTIME 04/09/22 04/09/22 quetiapine 25 mg tablet 25 mg PO BID 04/09/22 04/09/22 Previous Rx's Medication Instructions Recorded doxycycline monohydrate 100 mg 100 mg PO BID 7 days #14 caps 04/16/22 capsule Allergies Allergy/AdvReac Type Severity Reaction Status Date / Time aspirin [ASA] Allergy Unknown ITCHING Verified 07/17/22 12:14 Review of Systems Review of Systems: Yes all other systems are reviewed and are negative Constitutional: Constitutional: Reports as per [facility] Past Medical History Medical History Heroin abuse Polysubstance abuse Surgical History No pertinent past surgical history Family History Family History Other No family history of coronary artery disease Social History Social History Alcohol intake: current Alcohol intake frequency: 3 or more drinks per day Alcohol type: hard liquor Patient Tobacco Use Status: Current everyday Tobacco user Tobacco use type: Cigarette Cigarette Packs Per Day: 1 Cigarettes Per Day: 20.0 Second Hand Smoke Exposure: No Substance Use Type: Crack/Cocaine Advance Directives: No Advance Directives Information Provided: No service: No Current occupational status: disabled Physical Exam ED Vital Signs: Vital Signs - 24 hr 07/17/22 12:14 07/17/22 14:47 07/17/22 18:14 Temperature 97.9 F Pulse Rate 69 63 Respiratory Rate 16 14 14 Blood Pressure 137/77 132/84 Pulse Oximetry 97 95 Oxygen Delivery Method Room Air Room Air BMI result Body Mass Index 23.0 Vital signs have been reviewed and appear to be correct. Blood pressure normal. Heart rate normal. Respiratory rate normal. Temperature normal. Oxygen saturation normal. Const General: cooperative and no acute distress Orientation/consciousness: oriented to person, oriented to place, oriented to time and patient oriented x3 Limitations: no limitations HENMT Head: Yes normocephalic and Yes atraumatic Ears: external ears normal General nose exam: Normal external nose present Face and sinus: Yes face symmetric Mouth: oropharynx normal and moist mucous membranes Throat: Yes uvula midline Eyes Pupils: Equal, round and reactive pupils present Neck Neck: Yes normal visual inspection and Yes supple Resp Effort & Inspection: normal respiratory effort and able to speak in complete sentences Auscultation: clear to auscultation bilaterally Cardio Rate: regular rate Rhythm: regular rhythm Heart sounds: S1 normal heart sound present and S2 normal heart sound present GI Inspection: Yes normal to inspection, No abdominal wall ecchymosis and No visible herniation Palpation (GI): Soft to palpation, Tenderness to palpation present (GI) other (diffusely mildly TTP); with no rebound tenderness and no guarding Auscultation: normoactive bowel sounds General: Yes no CVA tenderness Back/Spine/Pelvis Back: no CVA tenderness Skin General skin exam: elasticity normal and turgor normal Neuro General: oriented to person, oriented to place, oriented to time, patient oriented x3, moves all extremities, no focal motor deficits and CN's II-XI in tact bilaterally Cranial nerves: Yes Equal, round and reactive pupils present Cognition (Neuro): normal cognition Extrem General: Yes full ROM, Yes no pedal edema and Yes no calf tenderness Psych Mental Status: mental status grossly normal Affect: normal affect Thought process: Normal thought process present Course Course Course Narrative: RME performed by Trinidad Muhammad PA-C. Patient is a 57 year old assigned male at presenting to the emergency department with abdominal pain, alcoholism, and drug abuse. Patient states that he has been having adominal pain for 15 days that he would like evaluated and he is a drug addict (crack/cocaine) and an alcoholic. Labs ordered. Patient placed back in the waiting room pending room availability and results. 17:31 Elevated BUN likely secondary to vomiting, labs otherwise unremarkable. No acute abnormalities on CT. Feel this is likely gastritis related to chronic alcohol use. Will PO challenge as patient reports improvement in symptoms after medications and is requesting to eat. As long as patient can tolerate PO he can be medically cleared for Care team eval. 18:03 Patient tolerating PO, will medically clear and place on physician obs for Care team eval. Medications Administered Discontinued Medications Generic Name Dose Route Start Last Admin Trade Name Freq PRN Reason Stop Dose Admin Al Hydroxide/Mg Hydroxide 15 ml 07/17/22 16:04 07/17/22 16:16 Magnesium Hydrox/Alum Hydrox 30 Ml Oral.Susp PO 07/17/22 16:05 15 ml ONCE ONE Administration Sodium Chloride 1,000 mls @ 999 mls/hr 07/17/22 15:30 07/17/22 16:40 Ns IV 07/17/22 16:30 Infused .Q1H1M NAYELY Infusion Lidocaine HCl 5 ml 07/17/22 16:04 07/17/22 16:16 Lidocaine Hcl Viscous 2 % 15 Ml Solution MUCOUS MEM 07/17/22 16:05 5 ml ONCE ONE Administration Medical Decision Making Medical Decision Making [facility] Narrative: Patient is a 57-year-old male with history of polysubstance use disorder, PTSD, MDD, generalized seizure presenting to the ED with complaint of nausea, vomiting, and abdominal pain for the past two weeks. On exam patient is awake, A+Ox3, nontoxic appearing, VS WNL, afebrile, abdomen soft, diffuse mild tenderness to palpation, no CVA tenderness. Presentation consistent with acute epigastric pain. Differential includes GERD, PUD. Less likely pancreatitis or cholecystitis, appendicitis, diverticulitis, pneumonia, hepatitis, PE (low risk [place]), UTI/pyelo. Plan: UA, labs, CT abd/pelvis, GI cocktail Differential Diagnosis Differential Diagnoses: The differential diagnosis associated with the presentation includes As above. Lab Data 07/17/22 13:22 07/17/22 13:22 Labs: Lab Results 07/17/22 07/17/22 Range/Units 13:22 13:22 WBC 7.9 (4.8-10.8) X10*3/uL RBC 4.90 (4.60-5.80) X10*6/uL Hgb 15.4 (14.0-18.0) g/dl Hct 45.1 (42.0-52.0) % MCV 92.0 (80.0-98.0) fL MCH 31.4 (27.0-33.0) pg MCHC 34.1 (31.0-36.0) g/dl RDW 13.7 (11.0-16.0) % Plt Count 134 L (160-400) X10*3/uL MPV 12.6 H (9.4-12.4) fL Immature Gran % (Auto) 0.3 (0.0-0.4) % Neut % (Auto) 50.3 (45-73) % Lymph % (Auto) 34.9 (20-40) % [place] % (Auto) 12.2 H (2-11) % Eos % (Auto) 1.8 (0-4) % Baso % (Auto) 0.5 (0-2) % Lymph # (Auto) 2.8 (1.2-4.9) X10*3/uL [place] # (Auto) 1.0 (0.1-1.2) X10*3/uL Eos # (Auto) 0.1 (0.0-0.4) X10*3/uL Baso # (Auto) 0.0 (0.0-0.2) X10*3/uL Abs Immat Gran (auto) 0.02 (0.00-0.03) X10*3/uL Absolute Neuts (auto) 4.0 (2.0-8.3) x10*3/uL Absolute Nucleated RBC 0.000 (0.0-0.012) X10*3/uL Nucleated RBC % (auto) 0.0 (0.0-0.2) /100WBC Sodium 137 (135-145) mmol/L Potassium 3.6 (3.3-5.1) mmol/L Chloride 103 (96-108) mmol/L Carbon Dioxide 23 (22-29) mmol/L Anion Gap 15 (12-20) BUN 30 H (9-16) mg/dL Creatinine 1.19 (0.5-1.4) mg/dL Estim Creat Clear Calc 74.4 Estimated GFR > 60 Random Glucose 172 H (60-115) mg/dL Calcium 9.4 (8.4-10.2) mg/dL Total Bilirubin 0.6 (0.0-1.0) mg/dL AST 32 (5-37) U/L ALT 25 (0-40) U/L Alkaline Phosphatase 81 (39-117) U/L Total Protein 7.1 (6.5-8.0) g/dL Albumin 4.3 (3.5-5.0) g/dL Lipase 22 (8-78) U/L Ethyl Alcohol < 10 mg/dL Discharge Plan Discharge Clinical Impression: Gastritis, Nausea & vomiting Patient Disposition: Still a Patient Instructions: Acute Nausea and Vomiting (ED), Acute Abdominal Pain (DC) Additional Instructions: You were evaluated in the emergency department today for abdominal pain, nausea and vomiting which is most likely due to irritation of the lining of your stomach. Your symptoms improved with medication in the ED. You can use M ylanta, which is available over the counter, to help manage your symptoms. Avoid spicy or acidic foods. Please follow up with your primary care physician within two days. You are also being referred to a particleboard factory worker for further evaluation of your symptoms. Please contact them to schedule an appointment. Return to the emergency department if you experience shortness of breath, worsening or uncontrolled abdominal pain, chest pain, light headedness, fainting, persistent nausea and vomiting, bloody vomit or stools, black, tarry stools, or any other concerning symptoms. Prescriptions: No Action doxycycline monohydrate 100 mg capsule 100 mg PO BID 7 Days Qty: 14 0RF clonidine HCl 0.1 mg tablet 0.2 mg PO BID hydroxyzine HCl 50 mg tablet 1 tab PO Q6H PRN (Reason: Anxiety) trazodone 150 mg tablet 1 tab PO BEDTIME PRN (Reason: Insomnia) gabapentin 300 mg capsule 1 cap PO TID albuterol sulfate [Ventolin HFA] 90 mcg/actuation HFA aerosol inhaler 2 puff inhalation Q4H PRN (Reason: wheezing) aripiprazole 20 mg tablet 1 tab PO BEDTIME quetiapine 25 mg Tablet 25 mg PO BID duloxetine [Cymbalta] 20 mg Capsule,Delayed Release(Dr/Ec) 40 mg PO BID atorvastatin 10 mg Tablet 5 mg PO DAILY mirtazapine 15 mg tablet 1 tab PO BEDTIME Referrals: [facility] [Provider Group]
--- NOTE | 2022-07-17 12:17 | ECG_ITS ---
Test Reason : RECENT COCAINE USE Blood Pressure : / mmHG Vent. Rate : 057 BPM Atrial Rate : 057 BPM P-R Int : 136 ms QRS Dur : 090 ms QT Int : 474 ms P-R-T Axes : 000 038 047 degrees QTc Int : 461 ms Sinus bradycardia Otherwise normal ECG When compared with ECG of 14-SEP-2021 02:18, Sinus rhythm has replaced Ectopic atrial rhythm QT has lengthened Referred By: Trinidad Muhammad Electronically Signed By:NANO HAGEN MD
[2022-07-17 13:27] LABS: MANUAL DIFF FLAG NO
[2022-07-17 13:32] LABS: Basophils Percent Auto 0.5 % (0-2); Eosinophils Absolute Auto 0.1 X10*3/uL (0.0-0.4); Eosinophils Percent Auto 1.8 % (0-4); Hematocrit 45.1 % (42.0-52.0); Hemoglobin 15.4 g/dl (14.0-18.0); Imm Gran Abs Auto 0.02 X10*3/uL (0.00-0.03); Imm Gran Pct Auto 0.3 % (0.0-0.4); Lymphocytes Absolute Auto 2.8 X10*3/uL (1.2-4.9); Lymphocytes Percent Auto 34.9 % (20-40); Mean Corpuscular HGB Conc 34.1 g/dl (31.0-36.0); Mean Corpuscular Hemoglobin 31.4 pg (27.0-33.0); Mean Platelet Volume 12.6 fL (9.4-12.4); Monocytes Percent Auto 12.2 % (2-11); Neutrophils Percent Auto 50.3 % (45-73); Platelet Count 134 X10*3/uL (160-400); Red Cell Distribution Width 13.7 % (11.0-16.0); White Blood Count 7.9 X10*3/uL (4.8-10.8)
[2022-07-17 13:42] LABS: Alanine Aminotransferase 25 U/L (0-40); Albumin Level 4.3 g/dL (3.5-5.0); Alkaline Phosphatase 81 U/L (39-117); Anion Gap 15 (12-20); Aspartate Amino Transferase 32 U/L (5-37); Bilirubin Total 0.6 mg/dL (0.0-1.0); Blood Urea Nitrogen 30 mg/dL (9-16); Calcium 9.4 mg/dL (8.4-10.2); Carbon Dioxide 23 mmol/L (22-29); Chloride 103 mmol/L (96-108); Creatinine Clr Calc Pharmacy 74.4; Estimated Glomerular Filt Rate > 60; Ethanol < 10 mg/dL; Glucose Random 172 mg/dL (60-115); Lipase 22 U/L (8-78); Potassium 3.6 mmol/L (3.3-5.1); Sodium 137 mmol/L (135-145); Total Protein 7.1 g/dL (6.5-8.0)
[2022-07-17 14:47] VITALS: BP 132/84; PULSE 63; RESP 14; O2SAT 95
[2022-07-17] MEDS: 0.9 % Sodium Chloride 1,000 ML 999 ML IV (15:30)
--- NOTE | 2022-07-17 16:06 | MHC.RECOVRN ---
This check writer went to meet with patient after receiving alert from CM, patient interested in detox. This check writer entered room, attempted to wake patient x's 2. Patient did not wake. No male detox bed openings 07/17/22.
[2022-07-17] MEDS: Lidocaine HCl Viscous 2 % 15 ML SOLUTION 5 ML MUCOUS MEM (16:16)
[2022-07-17] MEDS: Magnesium Hydrox/Alum Hydrox 30 ML ORAL.SUSP 15 ML PO (16:16)
--- NOTE | 2022-07-17 17:10 | PC.NURSE ---
Pt laying in bed, sleeping, calm, cooperative with care.
[2022-07-17 18:14] VITALS: RESP 14
[2022-07-17 20:00] VITALS: BP 129/78; PULSE 78; RESP 16; TEMP 37; O2SAT 100
[2022-07-17 20:02] VITALS: BP 115/69; PULSE 71; RESP 18; TEMP 36.9; O2SAT 98
--- NOTE | 2022-07-17 20:11 | PC.NURSE ---
Assumed care of pt from Raya TATUM about pts present condition, the reason why pt came to the hospital and what are pts results in regards to labs, tests and treatments.
[2022-07-17 22:00] VITALS: BP 129/78; PULSE 70; RESP 16; O2SAT 97
[2022-07-18] VITALS (8 sets, daily range): BP systolic 107–124; BP diastolic 66–78; PULSE 54–78; RESP 16–18; TEMP 36.2–36.9; O2SAT 93–100
--- NOTE | 2022-07-18 08:44 | PC.NURSE ---
alert, speech clear, skin wpd, nad, ate breakfast, awaiting gymnastics coach or instructor, pleasant and polite,
--- NOTE | 2022-07-18 09:22 | MHC.RECOVRN ---
Addendum entered by Kimberlyn Patino RN 07/18/22 14:24: Patient accepted at [facility] in [place] for 6pm Admission time. This commercial insurance underwriter coordinating [employer] transport. Provider and overhauler bus truck aware. Original Note: This commercial insurance underwriter met with patient, patient requesting detox. Patient reports daily Crack/ДМИТРИЙ use ranging in amount up to $700 daily, reports ETOH use, 1 pint daily. Patient states using daily ДМИТРИЙ/ETOH for estimated 5 years. Patient reports has been through levels of treatment for ДМИТРИЙ/ETOH in the past including detox. T/W reviewed detox bedsearch process, pt verbalized understanding. Detox bedsearch started.
[2022-07-18 09:50] LABS: Appearance Urine Clear; Color Urine Yellow; Glucose Urine UA Negative (Negative); Leukocyte Esterase Urine Negative (Negative); Nitrite Urine Negative (Negative); Specific Gravity - Urine 1.025 (1.005-1.025); UMIC TRIGGER UACC YES; Urine Blood Small (1+) (Negative); Urine Ketones Negative (Negative); Urine Protein Negative (Neg-Trace)
[2022-07-18 09:53] LABS: Bacteria Urine None Seen (None Seen); Hyaline Casts Urine 0-2 /LPF (0-2); Squamous Epithelial Cell Urine 0-2 /HPF (0-2); WBC Urine 0-5 /HPF (0-5)
== END 2022-07-18 14:45 | disposition home or self-care (01) ==
PROVIDERS: Physician Assistant Medical; Emergency Provider Emergency Medicine
DX: K29.70 Gastritis, unspecified, without bleeding (principal); R11.2 Nausea with vomiting, unspecified; F17.210 Nicotine dependence, cigarettes, uncomplicated; Z71.6 Tobacco abuse counseling; Z79.899 Other long term (current) drug therapy
CPT/HCPCS: 36415; 74176; 80053; 80307; 81001; 83690; 85025; 93005; 96360; 99284; 99285